=== PATIENT | female | born 1960 | race American Indian/Alaskan Native ===

== ENCOUNTER 2017-02-06 12:43 | Inpatient (IN) | payer OTHER ==
[2017-02-06 13:28] LABS: Basophils % (Auto) 0.1 % (0.0-1.8); Eosinophils % (Auto) 0.2 % (0.0-4.3); Hemoglobin 9.2 gm/dl (10.1-14.3); Mean Corpuscular HGB Conc 34 % (30-34); Mean Corpuscular Hemoglobin 27 pg (28-32); Mean Corpuscular Volume 81 fl (79-97); Platelet Count 267 K/mm3 (140-440); Red Blood Count 3.34 M/mm3 (3.65-5.03); Red Cell Distribution Width 16.7 % (13.2-15.2); White Blood Count 4.4 K/mm3 (4.5-11.0)
[2017-02-06 13:39] LABS: Anion Gap 18 mmol/L; Blood Urea Nitrogen 18 mg/dL (7-17); Calcium 9.1 mg/dL (8.4-10.2); Carbon Dioxide 24 mmol/L (22-30); Chloride 96.5 mmol/L (98-107); Glucose 84 mg/dL (65-100); Potassium 3.3 mmol/L (3.6-5.0); Sodium 135 mmol/L (137-145)
[2017-02-06] MEDS ORDERED: ZITHROMAX 500 MG in NACL 0.9% 250ML 250 ML IV ONE (21:29)
[2017-02-06] MEDS ORDERED: ROCEPHIN/NS 1 GM/50 ML 1 GM/50 ML BAG IV ONE (21:29)
[2017-02-06] MEDS ORDERED: K-DUR PO ONE (21:29)
[2017-02-06] MEDS ORDERED: DILAUDID IV ONE (21:43)
[2017-02-06] MEDS ORDERED: ZOFRAN IV ONE (21:43)
--- NOTE | 2017-02-06 21:49 | Emergency Department Report ---
ED Chest Pain HPI - General Chief Complaint: Chest Pain Stated Complaint: CHEST PAIN Time Seen by Provider: 02/06/17 21:23 Source: patient Mode of arrival: Ambulatory Limitations: No Limitations - History of Present Illness Initial Comments: Chief complaint: Right sided chest pain HPI: 56-year-old female history of lupus and asthma complaining or right sided sharp chest pain 1-2 weeks. Mode of arrival: [ private car] Source: [Patient] Began: 1-2 week Duration: Continuous Context: Denies trauma or injury. Positive cough Quality: Sharp Severity: 7 out of 10 Improved with: splinting Worsened with: movement, palpation, cough, inspiration Associated signs and symptoms: Cough occasional productive of yellow sputum. MAXIMUM TEMPERATURE of 100F. Denies calf tenderness or recent travel Plant Sprayer: Dr. Rodriguez PMD Stevie Peterson - Related Data Allergies Allergy/AdvReac Type Severity Reaction Status Date / Time aspirin AdvReac Nausea Verified 02/06/17 13:00 Heart Score - HEART Score History: Slightly suspicious EKG: Non-specific Age: 45-65 Risk factors: 1-2 risk factors Troponin: < normal limit HEART Score: 3 ED Review of Systems ROS: Stated complaint: CHEST PAIN Other details as noted in HPI Comment: All other systems reviewed and negative Other: Constitutional: As per HPI Eyes: No eye pain visual changes ENT: No ear pain or throat pain Neck: Denies pain Respiratory: As per HPI Cardiovascular: Denies palpitations, syncope GI: Denies abdominal pain, nausea, vomiting, diarrhea : Denies dysuria, Musculoskeletal: Denies back pain Skin: Denies rash, lesions, erythema Neurologic: Denies headache, numbness, weakness ED Past Medical Hx - Past Medical History Hx Asthma: Yes Additional medical history: lupus - Surgical History Hx Appendectomy: Yes Additional Surgical History: left leg shorter,surgery when young,partial hysterectomy - Social History Smoking Status: Current Every Day Smoker Substance Use Type: None ED Physical Exam - General Limitations: No Limitations - Other Other exam information: General: No limitations, patient is alert in no acute distress Head exam: Atraumatic, normocephalic Eyes exam: Normal appearance ENT: Moist mucous membrane, normal oropharynx Neck exam: Normal inspection, full range of motion, no meningismus nontender Respiratory exam: Splinting with deep inspiration. Mild decreased breath sounds right base. Tenderness to palpation of the right lower ribs. Cardiovascular: Normal rate and rhythm Abdomen: Soft, nondistended, and nontender, with normal bowel sounds, no rebound, or guarding Extremity: Full range of motion normal inspection no deformity, no calf tenderness or edema Back: Normal Inspection, full range of motion, no tenderness Neurologic: Alert, oriented x3, cranial nerves intact, no motor or sensory deficit Psychiatric: normal affect, normal mood Skin: Warm, dry, intact ED Course Vital Signs 02/06/17 12:55 Temperature 98 F Pulse Rate 102 H Respiratory 20 Rate Blood Pressure 120/76 O2 Sat by Pulse 97 Oximetry - Reevaluation(s) Reevaluation #1: 02/06/17 21:51 Dilaudid, Zofran, Rocephin, azithromycin, and by mouth potassium ordered - Consultations Consultation #1: 02/06/17 21:46 case d/w Dr Triny de la cruz, rec admission, will consult EDUARDO score - Eduardo Score Age > 65: (0) No Aspirin use within the Past 7 Days: (0) No 3 or more CAD Risk Factors: (0) No 2 or more Angina events in past 24 hrs: (0) No Known CAD with more than 50% Stenosis: (0) No Elevated Cardiac Markers: (0) No ST Deviation Greater than 0.5mm: (0) No EDUARDO Score: 0 ED Medical Decision Making - Lab Data Result diagrams: 02/06/17 13:03 02/06/17 13:03 Lab Results 02/06/17 02/06/17 02/06/17 Range/Units 13:03 13:03 15:30 WBC 4.4 L (4.5-11.0) K/mm3 RBC 3.34 L (3.65-5.03) M/mm3 Hgb 9.2 L (10.1-14.3) gm/dl Hct 27.0 L (30.3-42.9) % MCV 81 (79-97) fl MCH 27 L (28-32) pg MCHC 34 (30-34) % RDW 16.7 H (13.2-15.2) % Plt Count 267 (140-440) K/mm3 Lymph % (Auto) 21.2 (13.4-35.0) % [place] % (Auto) 9.0 H (0.0-7.3) % Eos % (Auto) 0.2 (0.0-4.3) % Baso % (Auto) 0.1 (0.0-1.8) % Lymph # 0.9 L (1.2-5.4) K/mm3 [place] # 0.4 (0.0-0.8) K/mm3 Eos # 0.0 (0.0-0.4) K/mm3 Baso # 0.0 (0.0-0.1) K/mm3 Seg Neutrophils % 69.5 (40.0-70.0) % Seg Neutrophils # 3.1 (1.8-7.7) K/mm3 Potassium 3.3 L (3.6-5.0) mmol/L Chloride 96.5 L (98-107) mmol/L Carbon Dioxide 24 (22-30) mmol/L Anion Gap 18 mmol/L BUN 18 H (7-17) mg/dL Creatinine 0.5 L (0.7-1.2) mg/dL Estimated GFR > 60 ml/min BUN/Creatinine Ratio 36.00 % Glucose 84 (65-100) mg/dL Calcium 9.1 (8.4-10.2) mg/dL Troponin T < 0.010 < 0.010 (0.00-0.029) ng/mL 02/06/17 Range/Units 18:54 WBC (4.5-11.0) K/mm3 RBC (3.65-5.03) M/mm3 Hgb (10.1-14.3) gm/dl Hct (30.3-42.9) % MCV (79-97) fl MCH (28-32) pg MCHC (30-34) % RDW (13.2-15.2) % Plt Count (140-440) K/mm3 Lymph % (Auto) (13.4-35.0) % [place] % (Auto) (0.0-7.3) % Eos % (Auto) (0.0-4.3) % Baso % (Auto) (0.0-1.8) % Lymph # (1.2-5.4) K/mm3 [place] # (0.0-0.8) K/mm3 Eos # (0.0-0.4) K/mm3 Baso # (0.0-0.1) K/mm3 Seg Neutrophils % (40.0-70.0) % Seg Neutrophils # (1.8-7.7) K/mm3 Potassium (3.6-5.0) mmol/L Chloride (98-107) mmol/L Carbon Dioxide (22-30) mmol/L Anion Gap mmol/L BUN (7-17) mg/dL Creatinine (0.7-1.2) mg/dL Estimated GFR ml/min BUN/Creatinine Ratio % Glucose (65-100) mg/dL Calcium (8.4-10.2) mg/dL Troponin T < 0.010 (0.00-0.029) ng/mL sodium: 135 - EKG Data -: EKG Interpreted by Me (nsr rate 99, lae, ant t inv) - EKG Data When compared to previous EKG there are: previous EKG unavailable - Medical Decision Making Chest x-ray reveals right pleural effusion which is new onset. Blood culture is pending. Antibiotics and pain medication ordered. Patient will be admitted for further treatment and pulmonology consultation. - Differential Diagnosis pleural effusion, pe, pneumonia, pleurisy, bronchitis Critical Care Time: No Critical care attestation.: If time is entered above; I have spent that time in minutes in the direct care of this critically ill patient, excluding procedure time. ED Disposition Clinical Impression: Pleural effusion, right, Lupus, Asthma, Hypokalemia Disposition: OP ADMIT IP TO THIS HOSP Is pt being admited?: Yes Condition: Stable Time of Disposition: 21:54 (Dr Bishop/hosp)
[2017-02-06] MEDS ORDERED: PERCOCET 5/325 PO PRN (23:04)
[2017-02-06] MEDS ORDERED: DULCOLAX PR PRN (23:04)
[2017-02-06] MEDS ORDERED: TYLENOL PO PRN (23:04)
[2017-02-06] MEDS ORDERED: ZOFRAN IV PRN (23:04)
[2017-02-06] MEDS ORDERED: MILK OF MAGNESIA PO PRN (23:04)
--- NOTE | 2017-02-06 23:06 | History and Physical Report ---
History of Present Illness Date of examination: 02/06/17 History of present illness: 56-year-old woman with a history of lupus, asthma comes emergency room with complaints of right side pain 1-2 weeks. She describes the pain as sharp, intermittent in nature, unable to say how long it lasts for, intensity 8/10, no radiation, worse with breathing and coughing Patient denies chest pain, palpitation, shortness of breath, cough, abdominal pain, hematochezia, dysuria, frequency, focal weakness, dysarthria, fever chills , polydipsia polyuria, hot or cold intolerance, easy bruisability, or rash or bleeding from mucosal membrane, rhinorrhea, epistaxis, earache, tinnitus, blurry vision, eye discharge, anxiety, depression. Other review of systems negative PAST SURGICAL HISTORY: Partial hysterectomy and surgery on left leg SOCIAL HISTORY: Denies alcohol, tobacco, drugs FAMILY HISTORY: Hypertension Medications and Allergies Allergies Allergy/AdvReac Type Severity Reaction Status Date / Time azithromycin Allergy Swelling Verified 02/07/17 02:21 aspirin AdvReac Nausea Verified 02/06/17 13:00 Home Medications Medication Instructions Recorded Confirmed Last Taken Type Potassium Chloride [K-Dur] 20 meq PO QDAY 02/06/17 02/06/17 02/06/17 History Prednisone [predniSONE (Lainey) ER 5 mg PO QDAY 02/06/17 02/06/17 02/06/17 History TAB] Exam - Physical Exam Narrative exam: Gen. appearance: Patient lying in bed, no apparent distress HEENT: Normocephalic, atraumatic, pupils equally round and reactive to light, extraocular movement intact, and no sclericterus,. No JVD or thyromegaly or nodule,neck supple, no carotid bruit ,mucous membranes moist, no exudate or erythema Heart: S1, S2, regular rate and rhythm Lungs: Decreased breath sound on the right side , breathing comfortable Abdomen: Positive bowel sounds, nontender, nondistended, no organomegaly Extremity: No edema, cyanosis, clubbing Skin: No rash, nodules, warm, dry Neuro: Oriented 3, cranial nerves II-12 intact, speech is fluent, motor and sensory intact - Constitutional Vitals: Temp Pulse Resp BP Pulse Ox 98 F 102 H 20 122/69 99 02/06/17 12:55 02/06/17 12:55 02/06/17 12:55 02/06/17 22:00 02/06/17 22:00 Results - Labs CBC & Chem 7: 02/07/17 05:09 02/07/17 05:09 Labs: Abnormal lab results 02/06/17 02/06/17 Range/Units 13:03 13:03 WBC 4.4 L (4.5-11.0) K/mm3 RBC 3.34 L (3.65-5.03) M/mm3 Hgb 9.2 L (10.1-14.3) gm/dl Hct 27.0 L (30.3-42.9) % MCH 27 L (28-32) pg RDW 16.7 H (13.2-15.2) % [place] % (Auto) 9.0 H (0.0-7.3) % Lymph # 0.9 L (1.2-5.4) K/mm3 Potassium 3.3 L (3.6-5.0) mmol/L Chloride 96.5 L (98-107) mmol/L BUN 18 H (7-17) mg/dL Creatinine 0.5 L (0.7-1.2) mg/dL - Imaging and Cardiology EKG: image reviewed Chest x-ray: image reviewed Assessment and Plan Right-sided pleuritic pain Right pleural effusion Lupus Asthma, stable Admit to medicine Check d-dimer, carrdiac enzymes,consult pulmonary Continue outpatient medication,start Percocet, DVT prophylaxis
[2017-02-07 00:07] LABS: Creatine Kinase MB < 1.0 ng/mL (0.0-4.0)
[2017-02-07 00:08] LABS: Creatine Kinase 18 units/L (30-135)
[2017-02-07] MEDS ORDERED: PEPCID IV ONE ×2 (00:58→01:07)
[2017-02-07] MEDS ORDERED: BENADRYL ONE (00:59)
[2017-02-07] MEDS ORDERED: BENADRYL IV ONE (01:07)
[2017-02-07 06:28] LABS: Basophils % (Auto) 0.1 % (0.0-1.8); Hematocrit 27.3 % (30.3-42.9); Hemoglobin 9.3 gm/dl (10.1-14.3); Mean Corpuscular HGB Conc 34 % (30-34); Mean Corpuscular Hemoglobin 27 pg (28-32); Mean Corpuscular Volume 80 fl (79-97); Platelet Count 254 K/mm3 (140-440); Red Blood Count 3.43 M/mm3 (3.65-5.03); Red Cell Distribution Width 17.3 % (13.2-15.2)
[2017-02-07 06:42] LABS: Anion Gap 17 mmol/L; BUN/Creatinine Ratio 56.66; Blood Urea Nitrogen 17 mg/dL (7-17); Carbon Dioxide 24 mmol/L (22-30); Chloride 97.6 mmol/L (98-107); Creatine Kinase MB < 1.0 ng/mL (0.0-4.0); Glucose 103 mg/dL (65-100); Potassium 4.5 mmol/L (3.6-5.0); Sodium 134 mmol/L (137-145)
[2017-02-07 06:44] LABS: Creatine Kinase 18 units/L (30-135)
--- NOTE | 2017-02-07 08:09 | XRay Report ---
CHEST TWO VIEWS: 02/06/17 12:43:00 CLINICAL: Shortness of breath and chest pain. COMPARISON: None FINDINGS: Right basal opacification with silhouetting of the diaphragm and opacification of the costophrenic angle.Pleural fluid appears to layer anteriorly on the lateral view. Right middle lobe and right lower lobe opacities on the lateral view. The left lung is clear. Normal heart and pulmonary vessels.The bones and soft tissues are unremarkable. IMPRESSION: Suspect right pleural effusion and right middle lobe and airspace disease.
[2017-02-07] MEDS: DELTASONE PO SCH (09:24)
[2017-02-07] MEDS: LOVENOX SUB-Q SCH (09:24)
[2017-02-07] MEDS ORDERED: NON-FORMULARY (Prednisone [Prednisone (Rayos) Er Tab] 5 MG) PO SCH (10:00)
--- NOTE | 2017-02-07 11:31 | Progress Note ---
Assessment and Plan Assessment and plan: --Right-sided pleuritic chest pain; Oxygen, pain medications, supportive care --Elevated d-dimer's in the setting of right pleuritic chest pain CT angiogram of the chest to rule out PE, symptomatic management --Right pleural effusion; supportive care Possible thoracentesis if indicated, pulmonary following --History of lupus; continue maintenance dose of steroids --History of asthma; stable well compensated Continue current management --DVT prophylaxis; Lovenox DC planning to case management Closely monitor the patient and adjust the management as needed follow pulmonary evaluation and recommendations Closely monitor the patient adjust the management as needed Possible discharge in 1-2 days if stable Plan of care discussed with the patient as well as the nurse History Interval history: Patient seen and evaluated in her room this morning medical records reviewed Admitted with right-sided chest pain, and has elevated d-dimer as Complaints of intermittent right-sided chest pain, no cough Alert awake oriented 3 not in acute distress vital signs reviewed Hospitalist Physical - Constitutional Vitals: Temp Pulse Resp BP Pulse Ox 98.3 F 85 16 100/58 98 02/07/17 09:47 02/07/17 09:47 02/07/17 09:47 02/07/17 09:47 02/07/17 09:47 General appearance: Present: no acute distress, well-nourished - EENT Eyes: Present: PERRL, EOM intact - Neck Neck: Present: supple, normal ROM - Respiratory Respiratory effort: normal Respiratory: bilateral: diminished, rhonchi, negative: rales, wheezing - Cardiovascular Rhythm: regular Heart Sounds: Present: S1 & S2 - Extremities Extremities: no ischemia, pulses intact, pulses symmetrical Peripheral Pulses: within normal limits - Abdominal General gastrointestinal: soft, non-tender, non-distended, normal bowel sounds - Integumentary Integumentary: Present: clear, warm - Psychiatric Psychiatric: appropriate mood/affect, cooperative - Neurologic Neurologic: CNII-XII intact, moves all extremities Results - Labs CBC & Chem 7: 02/07/17 05:09 02/07/17 05:09 Labs: Laboratory Last Values WBC 4.0 K/mm3 (4.5-11.0) L 02/07/17 05:09 RBC 3.43 M/mm3 (3.65-5.03) L 02/07/17 05:09 Hgb 9.3 gm/dl (10.1-14.3) L 02/07/17 05:09 Hct 27.3 % (30.3-42.9) L 02/07/17 05:09 MCV 80 fl (79-97) 02/07/17 05:09 MCH 27 pg (28-32) L 02/07/17 05:09 MCHC 34 % (30-34) 02/07/17 05:09 RDW 17.3 % (13.2-15.2) H 02/07/17 05:09 Plt Count 254 K/mm3 (140-440) 02/07/17 05:09 Lymph % (Auto) 7.7 % (13.4-35.0) L 02/07/17 05:09 [place] % (Auto) 2.7 % (0.0-7.3) 02/07/17 05:09 Eos % (Auto) 0.0 % (0.0-4.3) 02/07/17 05:09 Baso % (Auto) 0.1 % (0.0-1.8) 02/07/17 05:09 Lymph # 0.3 K/mm3 (1.2-5.4) L 02/07/17 05:09 [place] # 0.1 K/mm3 (0.0-0.8) 02/07/17 05:09 Eos # 0.0 K/mm3 (0.0-0.4) 02/07/17 05:09 Baso # 0.0 K/mm3 (0.0-0.1) 02/07/17 05:09 Seg Neutrophils % 89.5 % (40.0-70.0) H 02/07/17 05:09 Seg Neutrophils # 3.6 K/mm3 (1.8-7.7) 02/07/17 05:09 D-Dimer 2565.21 ng/mlDDU (0-234) H 02/06/17 23:25 Sodium 134 mmol/L (137-145) L 02/07/17 05:09 Potassium 4.5 mmol/L (3.6-5.0) D 02/07/17 05:09 Chloride 97.6 mmol/L (98-107) L 02/07/17 05:09 Carbon Dioxide 24 mmol/L (22-30) 02/07/17 05:09 Anion Gap 17 mmol/L 02/07/17 05:09 BUN 17 mg/dL (7-17) 02/07/17 05:09 Creatinine 0.3 mg/dL (0.7-1.2) L 02/07/17 05:09 Estimated GFR > 60 ml/min 02/07/17 05:09 BUN/Creatinine Ratio 56.66 % 02/07/17 05:09 Glucose 103 mg/dL (65-100) H 02/07/17 05:09 Calcium 9.0 mg/dL (8.4-10.2) 02/07/17 05:09 Total Creatine Kinase 18 units/L (30-135) L 02/07/17 05:09 CK-MB (CK-2) < 1.0 ng/mL (0.0-4.0) 02/07/17 05:09 CK-MB (CK-2) Rel Index 5.5 (0-4) H 02/07/17 05:09 Troponin T < 0.010 ng/mL (0.00-0.029) 02/07/17 05:09
[2017-02-07] MEDS ORDERED: PNEUMOVAX 23 IM ONE (12:00)
--- NOTE | 2017-02-07 12:05 | Admit Criteria Form ---
Admission Criteria Documentation: PLEURAL EFFUSION Clinical Indications for Admission to Inpatient Care (Place 'X' for any and all applicable criteria): Admission is indicated for ANY ONE of the following (1)(2)(3): [ ]I. Pneumonia-related effusion requiring drainage as indicated by ANY ONE of the following [A]: [ ]a) Large pleural effusion (symptomatic or greater than one-half of hemithorax) [ ]b) Loculated effusion [ ]c) Pleural thickening [ ]d) Pleural fluid analysis results, including ANY ONE of the following: [ ]i) Positive Gram stain or culture for bacteria [ ]ii) Pus [ ]iii) pH less than 7.20 [X]II. Inpatient admission required rather than observation care (Also use Pleural Effusion: Observation Care criteria as appropriate) because of ANY ONE of the following: [ ]a) Hemodynamic instability that is severe or persistent [ ]b) Respiratory distress that is severe or persistent [ ]c) Complication of drainage (e.g., pneumothorax) that requires inpatient care [ ]d) Etiology that requires inpatient care (e.g., pulmonary embolism , trauma) [ ]e) Severe pain requiring acute inpatient management [X ]f) Supplemental O2 or respiration drug for over 24 hrs that are performable only in an inpatient setting [ ]g) Chest tube placement with active evacuation (e.g., suction, drainage) [ ]h) Pulmonary artery catheter monitoring [ ]i) Epidural analgesia (8) [ ]j) Continuous IV infusion of anticoagulation, platelet inhibitor, vasoactive, or antiarrhythmic medication. [ ]k) Other condition, treatment or monitoring requiring inpatient admission [ ]l) Immediate inpatient surgery [ ]III. Hemothorax [ ]IV. Empyema [ ]V. Pleural effusion with concomitant pneumothorax [ ]. Recurrent or malignant pleural effusion requiring pleurodesis (4) Extended stay beyond goal length of stay may be needed for (27)(28): [ ]a) Empyema or complicated parapneumonic effusion (24)(29) [ ]b) Malignant pleural effusion (4) [ ]c) Pleural effusion due to trauma or perforated esophagus [ ]d) Pleural effusion due to pulmonary embolism (30) [ ]e) Clinically significant re-expansion pulmonary edema [ ]f) Hemothorax [ ]g) Renal failure [ ]h) Trapped lung (e.g., benign or malignant thickened pleura preventing lung re-expansion) (31) [ ]i) Underlying etiology necessitates ongoing inpatient care (e.g., pneumonia, heart failure, malignancy) [ ]j) Complications of thoracentesis, thoracostomy tube, or pleural cath. placement The original [facility] [employer] content created by [facility] has been revised. The portions of the content which have been revised are identified through the use of italic text or in bold, and [facility] has neither reviewed nor approved the modified material. All other unmodified content is copyright [facility]. Please see references footnoted in the original [facility] [employer] edition 2016 Admission Criteria Met: Yes
[2017-02-07] MEDS: LEVAQUIN 750MG/150ML 750 MG/150 ML BAG IV SCH (13:43)
[2017-02-07] MEDS ORDERED: NACL ONE (15:14)
--- NOTE | 2017-02-07 16:33 | Cat Scan Report ---
CTA chest: Elevated d-dimer; respiratory difficulty. Transverse images are obtained through the chest during IV contrast administration. Coronal and sagittal 2-D reformatted images as well as a 3-D image are included. As opacification of the pulmonary vessels, cardiac chambers, and thoracic aorta. No filling defect identified in the pulmonary vessels nor cardiac chambers. The thoracic aorta is normal in size and contour. No significant hilar, mediastinal, or axillary adenopathy. 2 calcified nodules noted in the right upper lobe consistent with granulomatous infection. No pulmonary nodules otherwise noted. There is bibasilar atelectasis slightly worse on the right. No significant effusion. Multiple circumscribed, small hypodensities are present throughout the liver measuring water attenuation. Impressions: 1. No pulmonary embolus. 2. Bibasilar atelectasis greater on right than left. Prior granulomatous infection of the right upper lobe. 3. Numerous liver cysts.
--- NOTE | 2017-02-08 08:04 | Progress Note ---
Assessment and Plan Assessment and plan: --Elevated d-dimer's in the setting of pleuritic chest pain CTA negative for PE, incidental findings noted --Right pleural effusion; supportive care Possible thoracentesis if indicated, pulmonary following --History of lupus; continue maintenance dose of steroids --History of asthma; stable well compensated Continue current management --DVT prophylaxis; Lovenox DC planning to case management Closely monitor the patient and adjust the management as needed Ambulate as tolerated Possible discharge home with home health to more if stable History Interval history: Patient seen and evaluated this morning in her room medical records reviewed Patient feels slightly better, denies any chest pain or shortness of breath CT angiogram negative for PE Alert awake oriented 3 not in acute distress, vital signs stable Hospitalist Physical - Constitutional Vitals: Temp Pulse Resp BP Pulse Ox 98.4 F 78 20 136/71 98 02/08/17 04:15 02/08/17 04:15 02/08/17 04:15 02/08/17 04:15 02/08/17 04:15 General appearance: Present: no acute distress, well-nourished - EENT Eyes: Present: PERRL, EOM intact - Neck Neck: Present: supple, normal ROM - Respiratory Respiratory effort: normal Respiratory: bilateral: diminished, negative: rales, rhonchi, wheezing - Cardiovascular Rhythm: regular Heart Sounds: Present: S1 & S2 - Extremities Extremities: no ischemia, pulses intact, pulses symmetrical Peripheral Pulses: within normal limits - Abdominal General gastrointestinal: soft, non-tender, non-distended, normal bowel sounds - Integumentary Integumentary: Present: clear, warm - Psychiatric Psychiatric: appropriate mood/affect, cooperative - Neurologic Neurologic: CNII-XII intact, moves all extremities Results - Labs CBC & Chem 7: 02/07/17 05:09 02/07/17 05:09 Labs: Laboratory Last Values WBC 4.0 K/mm3 (4.5-11.0) L 02/07/17 05:09 RBC 3.43 M/mm3 (3.65-5.03) L 02/07/17 05:09 Hgb 9.3 gm/dl (10.1-14.3) L 02/07/17 05:09 Hct 27.3 % (30.3-42.9) L 02/07/17 05:09 MCV 80 fl (79-97) 02/07/17 05:09 MCH 27 pg (28-32) L 02/07/17 05:09 MCHC 34 % (30-34) 02/07/17 05:09 RDW 17.3 % (13.2-15.2) H 02/07/17 05:09 Plt Count 254 K/mm3 (140-440) 02/07/17 05:09 Lymph % (Auto) 7.7 % (13.4-35.0) L 02/07/17 05:09 [place] % (Auto) 2.7 % (0.0-7.3) 02/07/17 05:09 Eos % (Auto) 0.0 % (0.0-4.3) 02/07/17 05:09 Baso % (Auto) 0.1 % (0.0-1.8) 02/07/17 05:09 Lymph # 0.3 K/mm3 (1.2-5.4) L 02/07/17 05:09 [place] # 0.1 K/mm3 (0.0-0.8) 02/07/17 05:09 Eos # 0.0 K/mm3 (0.0-0.4) 02/07/17 05:09 Baso # 0.0 K/mm3 (0.0-0.1) 02/07/17 05:09 Seg Neutrophils % 89.5 % (40.0-70.0) H 02/07/17 05:09 Seg Neutrophils # 3.6 K/mm3 (1.8-7.7) 02/07/17 05:09 D-Dimer 2565.21 ng/mlDDU (0-234) H 02/06/17 23:25 Sodium 134 mmol/L (137-145) L 02/07/17 05:09 Potassium 4.5 mmol/L (3.6-5.0) D 02/07/17 05:09 Chloride 97.6 mmol/L (98-107) L 02/07/17 05:09 Carbon Dioxide 24 mmol/L (22-30) 02/07/17 05:09 Anion Gap 17 mmol/L 02/07/17 05:09 BUN 17 mg/dL (7-17) 02/07/17 05:09 Creatinine 0.3 mg/dL (0.7-1.2) L 02/07/17 05:09 Estimated GFR > 60 ml/min 02/07/17 05:09 BUN/Creatinine Ratio 56.66 % 02/07/17 05:09 Glucose 103 mg/dL (65-100) H 02/07/17 05:09 Calcium 9.0 mg/dL (8.4-10.2) 02/07/17 05:09 Total Creatine Kinase 18 units/L (30-135) L 02/07/17 05:09 CK-MB (CK-2) < 1.0 ng/mL (0.0-4.0) 02/07/17 05:09 CK-MB (CK-2) Rel Index 5.5 (0-4) H 02/07/17 05:09 Troponin T < 0.010 ng/mL (0.00-0.029) 02/07/17 05:09
[2017-02-08] MEDS: LOVENOX SUB-Q SCH (11:19)
[2017-02-08] MEDS: DELTASONE PO SCH (11:19)
[2017-02-08] MEDS: LEVAQUIN 750MG/150ML 750 MG/150 ML BAG IV SCH (11:19)
[2017-02-08] MEDS ORDERED: ALUM-MAG HYDROX-SIMETH 200-200-20MG/5ML PO PRN ×2 (14:38→16:57)
--- NOTE | 2017-02-08 15:32 | Consultation ---
History of Present Illness Consult date: 02/08/17 Reason for consult: chest pain, pleural effusion History of present illness: Patient is a 56-year-old -[place] female with prior medical history of SLE, meter with a history of right-sided pleuritic pain for the past 1-2 weeks. The patient reports that she started with chest discomfort for sometimes associated with breathing, at that time. Some slight nonproductive cough noted. No leg discomfort or calf pain She denies any hemoptysis. She reports some low-grade temperature changes and does report some contact with sick colleagues on her work shift. Of note also, her SLE recently had being more active and her prednisone dose was increased and was also started on Plaquenil. No additional chest complaints reported. Past History Past Medical History: other (SLE SLE) Past Surgical History: No surgical history Social history: denies: smoking, alcohol abuse Medications and Allergies Allergies Allergy/AdvReac Type Severity Reaction Status Date / Time azithromycin Allergy Swelling Verified 02/07/17 02:21 aspirin AdvReac Nausea Verified 02/06/17 13:00 Home Medications Medication Instructions Recorded Confirmed Last Taken Type Potassium Chloride [K-Dur] 20 meq PO QDAY 02/06/17 02/06/17 02/06/17 History Prednisone [predniSONE (Lainey) ER 5 mg PO QDAY 02/06/17 02/06/17 02/06/17 History TAB] Active Meds: Active Medications Acetaminophen (Tylenol) 650 mg PO Q4H PRN PRN Reason: Pain MILD(1-3)/Fever >100.5/LEIVA Al Hydrox/Mg Hydrox/Simethicone (Alum-Mag Hydrox-Simeth [id number]/5ml) 30 ml PO Q4H PRN PRN Reason: Indigestion Bisacodyl (Dulcolax) 10 mg AK QDAY PRN PRN Reason: Constipation unrelieved by MOM Enoxaparin Sodium (Lovenox) 40 mg SUB-Q QDAY NITESH Last Admin: 02/08/17 11:19 Dose: 40 mg Levofloxacin (Levaquin) 750 mg PO Q24HR NITESH Magnesium Hydroxide (Milk Of Magnesia) 30 ml PO Q4H PRN PRN Reason: Constipation Ondansetron HCl (Zofran) 4 mg IV Q8H PRN PRN Reason: N/V unrelieved by Reglan Oxycodone/Acetaminophen (Percocet 5/325) 1 tab PO Q6H PRN PRN Reason: Pain, Moderate (4-6) Prednisone (Deltasone) 5 mg PO QDAY NITESH Last Admin: 02/08/17 11:19 Dose: 5 mg Review of Systems Constitutional: fever, fatigue, weakness, malaise Cardiovascular: chest pain, no orthopnea, no palpitations, no rapid/irregular heart beat, no edema, no syncope, no lightheadedness, no shortness of breath, no dyspnea on exertion Respiratory: cough, shortness of breath, dyspnea on exertion, no cough with sputum, no excessive sputum, no hemoptysis Gastrointestinal: no abdominal pain, no nausea, no BRBPR, no melena Musculoskeletal: morning stiffness Integumentary: no rash Neurological: no head injury, no transient paralysis, no paralysis, no tingling , no seizures, no syncope Psychiatric: no anxiety Endocrine: no cold intolerance, no heat intolerance, no polyphagia, no excessive thirst Hematologic/Lymphatic: no easy bruising, no easy bleeding, no lymphadenopathy, no lymphedema Physical Examination Vital signs: Vital Signs Temp Pulse Resp BP Pulse Ox 98 F 102 H 20 120/76 97 02/06/17 12:55 02/06/17 12:55 02/06/17 12:55 02/06/17 12:55 02/06/17 12:55 General appearance: no acute distress, alert Eyes: non-icteric ENT: oropharynx moist Neck: supple, no lymphadenopathy, no JVD Effort: normal Ascultation: Bilateral: clear, diminished breath sounds, rales (very faint on the right base) Percussion: Bilateral: not dull Cardiovascular: regular rate and rhythm Gastrointestinal: normoactive bowel sounds, non-distended Integumentary: normal Extremities: no cyanosis, no edema, no ischemia or petechiae, other (Homans negative bilaterally) Musculoskeletal: no deformities normal mental status, non-focal exam mood appropriate, affect normal Results - Laboratory Findings CBC and BMP: 02/07/17 05:09 02/07/17 05:09 PT/INR, D-dimer D-Dimer 2565.21 ng/mlDDU (0-234) H 02/06/17 23:25 Abnormal lab findings: Abnormal Labs 02/06/17 02/06/17 02/07/17 23:25 23:25 05:09 WBC 4.0 L RBC 3.43 L Hgb 9.3 L Hct 27.3 L MCH 27 L RDW 17.3 H Lymph % (Auto) 7.7 L Lymph # 0.3 L Seg Neutrophils % 89.5 H D-Dimer 2565.21 H Sodium Chloride Creatinine Glucose Total Creatine Kinase 18 L CK-MB (CK-2) Rel Index 5.5 H 02/07/17 02/07/17 05:09 05:09 WBC RBC Hgb Hct MCH RDW Lymph % (Auto) Lymph # Seg Neutrophils % D-Dimer Sodium 134 L Chloride 97.6 L Creatinine 0.3 L Glucose 103 H Total Creatine Kinase 18 L CK-MB (CK-2) Rel Index 5.5 H - Diagnostic Findings CT scan - chest: report reviewed, image reviewed Assessment and Plan -Chest pain. Per radiology report, no evidence of pleural effusion. No evidence of pulmonary embolism. Reason for her symptoms is unclear however, on my CT films review, I see some degree of pleural thickening versus minimal effusion on the right side. Considerations: Pleurodynia or most likely SLE related pleurisy symptoms. This will also explain incidental elevated d-dimer titers -Pulmonary granulomas. Incidental finding on CT scan. - SLE Recommendations: Sedimentation rate DUC Coxsackie B virus titers continue with prednisone and [id number] analgesic, in view of patient having aspirin allergy Incentive spirometry Out of bed and ambulate as tolerated
[2017-02-08] MEDS ORDERED: ALUM-MAG HYDROX-SIMETH 200-200-20MG/5ML ONE (17:00)
[2017-02-09 06:35] LABS: Basophils % (Auto) 0.2 % (0.0-1.8); Eosinophils % (Auto) 0.4 % (0.0-4.3); Hemoglobin 9.2 gm/dl (10.1-14.3); Mean Corpuscular HGB Conc 34 % (30-34); Mean Corpuscular Hemoglobin 27 pg (28-32); Mean Corpuscular Volume 79 fl (79-97); Platelet Count 276 K/mm3 (140-440); White Blood Count 3.3 K/mm3 (4.5-11.0)
[2017-02-09 06:42] LABS: Anion Gap 13 mmol/L; Blood Urea Nitrogen 18 mg/dL (7-17); Carbon Dioxide 27 mmol/L (22-30); Chloride 100.6 mmol/L (98-107); Glucose 82 mg/dL (65-100); Potassium 3.5 mmol/L (3.6-5.0); Sodium 137 mmol/L (137-145)
--- NOTE | 2017-02-09 08:01 | Discharge Summary ---
Providers - Providers Date of Admission: 02/06/17 23:04 Date of discharge: 02/09/17 Attending physician: MOUSTAPHA CHAMBERLAIN Primary care physician: SNAGGER Hospitalization Condition: Stable Disposition: DC-01 TO HOME OR SELFCARE Time spent for discharge: 32 min Exam - Constitutional Vitals: Temp Pulse Resp BP Pulse Ox 98.4 F 80 20 134/68 100 02/09/17 04:00 02/09/17 04:00 02/09/17 04:00 02/09/17 04:00 02/09/17 04:00 Plan Activity: no restrictions Diet: regular Additional Instructions: f/u PMD 3-4 days. f/u [employer] 1-2 weeks. advised 2 days rest,check with PMD for further instructions Follow up with: PRIMARY CARE, [Primary Care Provider] - 7 Days Prescriptions: Levofloxacin [Levaquin TAB] 750 mg PO Q24HR #5 tablet oxyCODONE /ACETAMINOPHEN [Percocet 5/325 mg] 1 tab PO Q12H PRN #10 tablet PRN Reason: Pain, Moderate (4-6)
[2017-02-09] MEDS ORDERED: K-DUR PO NR (08:30)
[2017-02-09 09:30] VITALS: BP 106/50
[2017-02-09] MEDS ORDERED: LEVAQUIN PO SCH (10:00)
[2017-02-09] MEDS: LOVENOX SUB-Q SCH (10:33)
[2017-02-09] MEDS: DELTASONE PO SCH (10:33)
== END 2017-02-09 14:15 | disposition home or self-care (01) | DRG 547 ==
LOC: ED 12:43 → 4A 23:04 → UNDODISIN 02-09 13:17
PROVIDERS: ADMIT Internal Medicine; ATTEND Internal Medicine
PROC: 3E0234Z Introduction of Serum, Toxoid and Vaccine into Muscle, Percutaneous Approach (ICD-10-PCS; principal; 2017-02-07)
DX: M32.9 Systemic lupus erythematosus, unspecified (principal); R07.81 Pleurodynia; F17.200 Nicotine dependence, unspecified, uncomplicated; E87.6 Hypokalemia; J84.10 Pulmonary fibrosis, unspecified; Z88.8 Allergy status to other drugs, medicaments and biological substances; Z82.49 Family history of ischemic heart disease and other diseases of the circulatory system; Z90.711 Acquired absence of uterus with remaining cervical stump; Z88.6 Allergy status to analgesic agent; Z90.710 Acquired absence of both cervix and uterus; Z23 Encounter for immunization
CPT/HCPCS: 36415; 71020; 71275; 80048; 82550; 82553; 84484; 85025; 85379; 87040; 90732; 93005; 93010; 96374; 96375; J0456; J0696; J1170; J1200; J1650; J1956; J2405; J2930; J7050; J7512; Q9967

== ENCOUNTER 2019-07-08 18:59 | Inpatient (IN) | payer OTHER ==
[2019-07-08] MEDS ORDERED: SODIUM CHLORIDE 0.9% 1000 ML IV SOLN IV ONE (19:39)
--- NOTE | 2019-07-08 19:39 | Event Note ---
ED Screening Note ED Screening Note: generalized weakness for 3-4 days fatigue bed sores confusion lives at home with sister went to ER previously, diagnosed with UTI +diarrhea no cough no n/v PMHx asthma, RA, lupus, anemia This initial assessment/diagnostic orders/clinical plan/treatment(s) is/are subject to change based on patients health status, clinical progression and re- assessment by fellow clinical providers in the ED. Further treatment and workup at subsequent clinical providers discretion. Patient/guardian urged not to elope from the ED as their condition may be serious if not clinically assessed and managed. Initial orders include: suspected sepsis protocol
--- NOTE | 2019-07-08 20:47 | Cat Scan Report ---
CT head/brain wo con INDICATION: Altered mental status. TECHNIQUE: Routine CT head without contrast. All CT scans at this location are performed using CT dos e reduction for ALARA by means of automated exposure control. COMPARISON: None. FINDINGS: BRAIN / INTRACRANIAL CONTENTS: No acute hemorrhage, mass effect, midline shift, or hydrocephalus. No appreciable acute large territorial or lacunar infarct. No large chronic infarct or focal atrophy. No rmal brain volume and ventricular/sulcal size for age. There are a couple of subcortical white matter hypodensities in the posterior right frontal lobe on series 2 images 19 and 20. ORBITS: No significant abnormality of visualized orbits. SINUSES / MASTOIDS: No significant abnormality of visualized sinuses and mastoid air cells. Pneumatiz ation of the petrous apices is noted. ADDITIONAL FINDINGS: None. IMPRESSION: 1. Small white matter hypodensities in the posterior right frontal lobe likely represent areas of chr onic microangiopathic change and/or old small lacunar regions but remain age indeterminate in the abs ence of comparison imaging. If acute stroke is a strong clinical suspicion, further evaluation with M RI of the brain without contrast may be obtained. Signer Name: Bartolome Gupta MD Signed: 07/08/2019 8:42 PM Workstation Name: [id number]
[2019-07-08 21:02] LABS: Bilirubin,Urine NEG (Negative); Blood,Urine LG (Negative); Color,Urine Yellow (Yellow); Urobilinogen,Urine < 2.0 mg/dL (<2.0)
[2019-07-08 21:04] LABS: RBC,Urine > 182.0 /HPF (0.0-6.0); WBC,Urine > 182.0 /HPF (0.0-6.0)
[2019-07-08 21:45] LABS: Albumin 2.5 g/dL (3.9-5); Calcium 9.9 mg/dL (8.4-10.2)
[2019-07-08] MEDS ORDERED: SODIUM CHLORIDE 0.9% 1000 ML 1,000 ML IV ONE ×2 (22:05→23:55)
[2019-07-08 22:06] LABS: Basophils % (Auto) 0.1 % (0.0-1.8); Eosinophils % (Auto) 0.2 % (0.0-4.3); Hematocrit 21.4 % (30.3-42.9); Hemoglobin 7.2 gm/dl (10.1-14.3); Lymphocytes # (Auto) 0.6 K/mm3 (1.2-5.4); Lymphocytes % (Auto) 5.4 % (13.4-35.0); Mean Corpuscular HGB Conc 34 % (30-34); Mean Corpuscular Volume 89 fl (79-97); Red Blood Count 2.41 M/mm3 (3.65-5.03); Red Cell Distribution Width 15.2 % (13.2-15.2)
[2019-07-08] MEDS ORDERED: cefTRIAXone/NS 2 GM/100 ML 2 GM/100 ML BAG IV ONE (22:06)
--- NOTE | 2019-07-08 22:57 | Emergency Department Report ---
ED General Adult HPI - General Chief complaint: Weakness Stated complaint: NOT EATING/BED SORES/FATIGUE Time Seen by Provider: 07/08/19 19:35 Source: family Mode of arrival: Wheelchair Limitations: Physical Limitation - History of Present Illness Initial comments: Patient is a 59-year-old female with history of lupus rheumatoid arthritis and chronic anemia who is presenting with progressively worsening weakness. Patient's family state that she's been living with her sister for the last month because she was unable to care for herself. Approximate 2 months ago she became noticeably more tired after working and is now having difficulty evening moving around or taking care of herself. Patient was taken to an outside emergency department roughly 2 weeks ago or so she had a UTI and was started on Levaquin. The patient has some blood in her urine as well. Patient's family states she took oral antibiotics was not improving improving. Patient states that her primary care physician Stated That She Did Not Have a Urinary Tract Infection. Patient at This Point According to Family He Is Not Eating or Drinking and Cannot Stand on Her Own. I Was Complaining of Some Mild Diarrhea As Well. - Related Data Home Medications Medication Instructions Recorded Confirmed Last Taken Potassium Chloride [K-Dur] 20 meq PO QDAY 02/06/17 02/06/17 02/06/17 Prednisone [predniSONE (Lainey) ER 5 mg PO QDAY 02/06/17 02/06/17 02/06/17 TAB] Previous Rx's Medication Instructions Recorded Last Taken Type levoFLOXacin [Levaquin TAB] 750 mg PO Q24HR #5 tablet 02/09/17 Unknown Rx oxyCODONE /ACETAMINOPHEN [Percocet 1 tab PO Q12H PRN #10 tablet 02/09/17 Unknown Rx 5/325 mg] Allergies Allergy/AdvReac Type Severity Reaction Status Date / Time azithromycin Allergy Swelling Verified 02/07/17 02:21 aspirin AdvReac Nausea Verified 02/06/17 13:00 ED Review of Systems ROS: Stated complaint: NOT EATING/BED SORES/FATIGUE Other details as noted in HPI Comment: All other systems reviewed and negative ED Past Medical Hx - Past Medical History Previous Medical History?: Yes Hx Arthritis: Yes (RA) Hx Asthma: Yes Hx COPD: No Additional medical history: lupus, Anemia, Sacral Decubitus - Surgical History Past Surgical History?: Yes Hx Appendectomy: Yes Additional Surgical History: left leg shorter,surgery when young,partial hysterectomy - Social History Smoking Status: Unknown if ever smoked Substance Use Type: None - Medications Home Medications: Home Medications Medication Instructions Recorded Confirmed Last Taken Type Potassium Chloride [K-Dur] 20 meq PO QDAY 02/06/17 02/06/17 02/06/17 History Prednisone [predniSONE (Lainey) ER 5 mg PO QDAY 02/06/17 02/06/17 02/06/17 History TAB] levoFLOXacin [Levaquin TAB] 750 mg PO Q24HR #5 tablet 02/09/17 Unknown Rx oxyCODONE /ACETAMINOPHEN [Percocet 1 tab PO Q12H PRN #10 tablet 02/09/17 Unknown Rx 5/325 mg] ED Physical Exam - General Limitations: Physical Limitation General appearance: alert, lethargic, cachectic, other (very pale) - Head Head exam: Present: atraumatic, normocephalic - Eye Eye exam: Present: normal appearance. Absent: PERRL, EOMI - ENT ENT exam: Present: mucous membranes dry, other (thrush present) - Neck Neck exam: Present: normal inspection - Respiratory Respiratory exam: Present: normal lung sounds bilaterally. Absent: respiratory distress, wheezes, rales, rhonchi - Cardiovascular Cardiovascular Exam: Present: normal rhythm, tachycardia, normal heart sounds. Absent: systolic murmur, diastolic murmur, rubs, gallop - GI/Abdominal GI/Abdominal exam: Present: soft, normal bowel sounds. Absent: distended, tenderness, guarding, rebound - Rectal Rectal exam: Present: heme (+) stool - Extremities Exam Extremities exam: Present: normal inspection, other (extremity waisting) - Back Exam Back exam: Present: normal inspection - Neurological Exam Neurological exam: Present: alert, oriented X3 - Psychiatric Psychiatric exam: Present: normal affect, normal mood - Skin Skin exam: Present: warm, dry, intact, normal color, other (stage 2 sacral ulcer). Absent: rash ED Course Vital Signs 07/08/19 07/08/19 07/08/19 19:36 20:04 20:15 Temperature 97.5 F L Pulse Rate 108 H 105 H Respiratory 18 18 Rate Blood Pressure 81/47 98/54 98/54 O2 Sat by Pulse 100 100 Oximetry 07/08/19 07/08/19 07/08/19 20:30 20:45 21:01 Temperature Pulse Rate 100 H 92 H 96 H Respiratory 23 14 16 Rate Blood Pressure 96/61 86/51 86/51 O2 Sat by Pulse 100 100 100 Oximetry 07/08/19 07/08/19 07/08/19 21:15 21:30 21:45 Temperature Pulse Rate 91 H 94 H 94 H Respiratory 17 12 11 L Rate Blood Pressure 95/56 79/49 83/45 O2 Sat by Pulse 100 100 100 Oximetry 07/08/19 07/08/19 07/08/19 22:17 22:30 22:45 Temperature Pulse Rate 97 H 98 H 97 H Respiratory 32 H 16 19 Rate Blood Pressure 93/40 74/46 94/51 O2 Sat by Pulse 100 100 98 Oximetry 07/08/19 23:00 Temperature Pulse Rate 93 H Respiratory 20 Rate Blood Pressure 91/47 O2 Sat by Pulse 100 Oximetry - Reevaluation(s) Reevaluation #1: 07/08/19 22:57 Patient currently has no power of insurance attorney. I did speak with her sister at this time at length about whether the patient wished to have advanced measures used in case her heart were to stop she went to respiratory distress. Patient's sister states they plan on having a family meeting concerning this tomorrow. ED Medical Decision Making - Lab Data Result diagrams: 07/08/19 21:00 07/08/19 21:00 Lab Results 07/08/19 07/08/19 07/08/19 Range/Units 20:42 21:00 21:00 WBC 10.5 (4.5-11.0) K/mm3 RBC 2.41 L (3.65-5.03) M/mm3 Hgb 7.2 L (10.1-14.3) gm/dl Hct 21.4 L (30.3-42.9) % MCV 89 (79-97) fl MCH 30 (28-32) pg MCHC 34 (30-34) % RDW 15.2 (13.2-15.2) % Lymph % (Auto) 5.4 L (13.4-35.0) % [place] % (Auto) 10.0 H (0.0-7.3) % Eos % (Auto) 0.2 (0.0-4.3) % Baso % (Auto) 0.1 (0.0-1.8) % Lymph # 0.6 L (1.2-5.4) K/mm3 [place] # 1.0 H (0.0-0.8) K/mm3 Eos # 0.0 (0.0-0.4) K/mm3 Baso # 0.0 (0.0-0.1) K/mm3 Seg Neutrophils % 84.3 H (40.0-70.0) % Seg Neutrophils # 8.8 H (1.8-7.7) K/mm3 Sodium 134 L (137-145) mmol/L Potassium 5.6 H (3.6-5.0) mmol/L Chloride 101.0 (98-107) mmol/L Carbon Dioxide 19 L (22-30) mmol/L Anion Gap 20 mmol/L BUN 123 H (7-17) mg/dL Creatinine 1.9 H (0.7-1.2) mg/dL Estimated GFR 33 ml/min BUN/Creatinine Ratio 65 % Glucose 135 H (65-100) mg/dL Lactic Acid (0.7-2.0) mmol/L Calcium 9.9 (8.4-10.2) mg/dL Phosphorus (2.5-4.5) mg/dL Magnesium (1.7-2.3) mg/dL Total Bilirubin 0.30 (0.1-1.2) mg/dL AST 18 (5-40) units/L ALT 10 (7-56) units/L Alkaline Phosphatase 36 (35-129) units/L Total Creatine Kinase (30-135) units/L Total Protein 6.9 (6.3-8.2) g/dL Albumin 2.5 L (3.9-5) g/dL Albumin/Globulin Ratio 0.6 % Urine Color Yellow (Yellow) Urine Turbidity Cloudy (Clear) Urine pH 6.0 (5.0-7.0) Ur Specific [place] 1.013 (1.003-1.030) Urine Protein 30 mg/dl (Negative) mg/dL Urine Glucose (UA) 50 (Negative) mg/dL Urine Ketones Neg (Negative) mg/dL Urine Blood Lg (Negative) Urine Nitrite Neg (Negative) Urine Bilirubin Neg (Negative) Urine Urobilinogen < 2.0 (<2.0) mg/dL Ur Leukocyte Esterase Lg (Negative) Urine WBC (Auto) > 182.0 H (0.0-6.0) /HPF Urine RBC (Auto) > 182.0 (0.0-6.0) /HPF U Epithel Cells (Auto) 3.0 (0-13.0) /HPF Urine WBC Clumps 3+ /HPF 07/08/19 07/08/19 Range/Units 21:00 21:00 WBC (4.5-11.0) K/mm3 RBC (3.65-5.03) M/mm3 Hgb (10.1-14.3) gm/dl Hct (30.3-42.9) % MCV (79-97) fl MCH (28-32) pg MCHC (30-34) % RDW (13.2-15.2) % Lymph % (Auto) (13.4-35.0) % [place] % (Auto) (0.0-7.3) % Eos % (Auto) (0.0-4.3) % Baso % (Auto) (0.0-1.8) % Lymph # (1.2-5.4) K/mm3 [place] # (0.0-0.8) K/mm3 Eos # (0.0-0.4) K/mm3 Baso # (0.0-0.1) K/mm3 Seg Neutrophils % (40.0-70.0) % Seg Neutrophils # (1.8-7.7) K/mm3 Sodium (137-145) mmol/L Potassium (3.6-5.0) mmol/L Chloride (98-107) mmol/L Carbon Dioxide (22-30) mmol/L Anion Gap mmol/L BUN (7-17) mg/dL Creatinine (0.7-1.2) mg/dL Estimated GFR ml/min BUN/Creatinine Ratio % Glucose (65-100) mg/dL Lactic Acid 3.20 H* (0.7-2.0) mmol/L Calcium (8.4-10.2) mg/dL Phosphorus 2.40 L (2.5-4.5) mg/dL Magnesium 2.50 H (1.7-2.3) mg/dL Total Bilirubin (0.1-1.2) mg/dL AST (5-40) units/L ALT (7-56) units/L Alkaline Phosphatase (35-129) units/L Total Creatine Kinase 59 (30-135) units/L Total Protein (6.3-8.2) g/dL Albumin (3.9-5) g/dL Albumin/Globulin Ratio % Urine Color (Yellow) Urine Turbidity (Clear) Urine pH (5.0-7.0) Ur Specific [place] (1.003-1.030) Urine Protein (Negative) mg/dL Urine Glucose (UA) (Negative) mg/dL Urine Ketones (Negative) mg/dL Urine Blood (Negative) Urine Nitrite (Negative) Urine Bilirubin (Negative) Urine Urobilinogen (<2.0) mg/dL Ur Leukocyte Esterase (Negative) Urine WBC (Auto) (0.0-6.0) /HPF Urine RBC (Auto) (0.0-6.0) /HPF U Epithel Cells (Auto) (0-13.0) /HPF Urine WBC Clumps /HPF - Radiology Data CT head/brain wo con INDICATION: Altered mental status. TECHNIQUE: Routine CT head without contrast. All CT scans at this location are performed using CT dose reduction for ALARA by means of automated exposure control. COMPARISON: None. FINDINGS: BRAIN / INTRACRANIAL CONTENTS: No acute hemorrhage, mass effect, midline shift, or hydrocephalus. No appreciable acute large territorial or lacunar infarct. No large chronic infarct or focal atrophy. Normal brain volume and ventricular/sulcal size for age. There are a couple of subcortical white matter hypodensities in the posterior right frontal lobe on series 2 images 19 a nd 20. ORBITS: No significant abnormality of visualized orbits. SINUSES / MASTOIDS: No significant abnormality of visualized sinuses and mastoid air cells. Pneumatization of the petrous apices is noted. ADDITIONAL FINDINGS: None. IMPRESSION: 1. Small white matter hypodensities in the posterior right frontal lobe likely represent areas of chronic microangiopathic change and/or old small lacunar regions but remain age indeterminate in the absence of comparison imaging. If acute stroke is a strong clinical suspicion, further evaluation with MRI of the brain without contrast may be obtained. Signer Name: Bartolome Gupta MD Signed: 07/08/2019 8:42 PM Workstation Name: [id number] CT ABDOMEN AND PELVIS WITHOUT CONTRAST INDICATION: Generalized weakness and hematuria. TECHNICAL: Multiple axial CT images of the abdomen and pelvis were acquired without intravenous contrast. Sagittal and coronal reformats were obtained. All CTs at this facility utilize dose reduction techniques including automated exposure control, iterative reconstruction and weight based dosing when appropriate to reduce patient radiation dose to as low as reasonable achievable. COMPARISON: No previous studies are available for comparison. FINDINGS: Limited imaging of the bilateral lung bases demonstrates no evidence of acute abnormality. Abdomen: Evaluation of the abdomen is limited secondary to the lack of intravenous contrast and paucity of abdominal fat. There are innumerable low density lesions throughout the liver. The spleen and pancreas show no evidence of acute abnormality. There is moderate hydronephrosis of both kidneys without definitive perinephric stranding. There are several punctate nonobstructing intrarenal stones noted bilaterally. Pelvis: The urinary bladder is markedly distended and extends into the abdomen. No significant amount of free pelvic fluid is seen. Bones and Soft Tissues: Evaluation of bony structures demonstrates no evidence of destructive bony lesion. There are multilevel degenerative changes throughout the thoracolumbar spine. Evaluation of soft tissue structures demonstrates soft tissue irregularity along both gluteal regions, left greater than right concerning for decubitus ulcer. IMPRESSION: 1. Marked distention of the urinary bladder representing bladder outlet obstruction. 2. Moderate bilateral hydronephrosis. The hydronephrosis may be secondary to the bladder outlet obstruction. 3. Multiple nonobstructing intrarenal stones. 4. Soft tissue irregularity of both gluteal regions concerning for decubitus ulcer. Signer Name: Shasha Gonzalez MD Signed: 07/08/2019 11:37 PM Workstation Name: [id number] - Medical Decision Making 59 Greg female who over the last 4 weeks since had a rapid decline in her ability to take care of herself. Patient this point has V [place] in order to move her. She cannot stand on her own and is not eating and drinking in the last several days to week. Patient recently was treated for UTI family states that she has not improved. Per my exam the patient is emaciated and cachectic. Patient's is very thin and frail. She does have a distended abdomen. CT shows no masses however she does have a extremely distended bladder. It appears to have some obstructive process going on. Patient was started on antibiotics for urinary tract infection. Patient was given IV hydration aggressively to help with her renal function. Admitted to the hospitalist service. Critical Care Time: Yes (30) Critical care attestation.: If time is entered above; I have spent that time in minutes in the direct care o f this critically ill patient, excluding procedure time. ED Disposition Clinical Impression: Urinary outflow obstruction, Hyperkalemia Acute cystitis Qualifiers: Hematuria presence: with hematuria Qualified Code(s): N30.01 - Acute cystitis with hematuria Hematuria Qualifiers: Hematuria type: unspecified type Qualified Code(s): R31.9 - Hematuria, unspecified Failure to thrive Qualifiers: Failure to thrive age range: in adult Qualified Code(s): R62.7 - Adult failure to thrive Acute renal failure Qualifiers: Acute renal failure type: unspecified Qualified Code(s): N17.9 - Acute kidney failure, unspecified Disposition: -09 OP ADMIT IP TO THIS HOSP Is pt being admited?: Yes Condition: Stable Referrals: PRIMARY CARE, [Primary Care Provider] - 3-5 Days Time of Disposition: 23:54
[2019-07-08 23:41] LABS: Platelet Count 75 K/mm3 (140-440)
--- NOTE | 2019-07-08 23:41 | Cat Scan Report ---
CT ABDOMEN AND PELVIS WITHOUT CONTRAST INDICATION: Generalized weakness and hematuria. TECHNICAL: Multiple axial CT images of the abdomen and pelvis were acquired without intravenous contr ast. Sagittal and coronal reformats were obtained. All CTs at this facility utilize dose reduction techniques including automated exposure control, iterative reconstruction and weight based dosing whe n appropriate to reduce patient radiation dose to as low as reasonable achievable. COMPARISON: No previous studies are available for comparison. FINDINGS: Limited imaging of the bilateral lung bases demonstrates no evidence of acute abnormality. Abdomen: Evaluation of the abdomen is limited secondary to the lack of intravenous contrast and pauci ty of abdominal fat. There are innumerable low density lesions throughout the liver. The spleen and p ancreas show no evidence of acute abnormality. There is moderate hydronephrosis of both kidneys witho ut definitive perinephric stranding. There are several punctate nonobstructing intrarenal stones note d bilaterally. Pelvis: The urinary bladder is markedly distended and extends into the abdomen. No significant amount of free pelvic fluid is seen. Bones and Soft Tissues: Evaluation of bony structures demonstrates no evidence of destructive bony l esion. There are multilevel degenerative changes throughout the thoracolumbar spine. Evaluation of so ft tissue structures demonstrates soft tissue irregularity along both gluteal regions, left greater t alvarado right concerning for decubitus ulcer. IMPRESSION: 1. Marked distention of the urinary bladder representing bladder outlet obstruction. 2. Moderate bilateral hydronephrosis. The hydronephrosis may be secondary to the bladder outlet obstr uction. 3. Multiple nonobstructing intrarenal stones. 4. Soft tissue irregularity of both gluteal regions concerning for decubitus ulcer. Signer Name: Shasha Gonzalez MD Signed: 07/08/2019 11:37 PM Workstation Name: [email or web address]
[2019-07-09] MEDS ORDERED: ONDANSETRON 4 MG/2 ML INJ IV PRN (00:35)
[2019-07-09] MEDS ORDERED: PIPERACIL/TAZOBACTA 4.5/NS 100 4.5 GM/100 ML VIAL IV SCH ×2 (01:00)
--- NOTE | 2019-07-09 01:01 | History and Physical Report ---
<RAS CORTES - Last Filed: 07/09/19 01:08> History of Present Illness Date of examination: 07/09/19 Date of admission: 07/09/2019 Chief complaint: failure to thrive History of present illness: 59 year old -Mosotho female with history of rheumatoid arthritis, asthma, lupus, chronic anemia, bilateral sacral pressure ulcers who presents to [facility] ED with complaints of unable to walk or stand independently and poor oral intake. Of note patient is emaciated and chronically ill appearing. Her sister and son are present at the bedside. Patient is able to answer yes no questions but on able to provide detailed history. History is provided by patient's sister. According to patient's history patient has continued to decline and functional ability over the past 2 months. Sister states that she has had poor oral intake and has continued to lose weight over the past months. Approximately 1-2 weeks ago patient was taken to [facility] [place] [place] cell and was diagnosed with UTI. She was not admitted but received prescription for oral antibiotics and was discharge. Patient's functional status continued to decline, and presently she is on able to walk or stand on her own. Up until about 3-4 weeks ago patient continue to go to work as schedule. 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 Past History Past Medical History: anemia, arthritis, other (asthma, lupus, bilateral sacral pressure ulcers) Past Surgical History: appendectomy, hysterectomy (partial), Other (left leg shoulder) Social history: lives with family Family history: no significant family history Medications and Allergies Allergies Allergy/AdvReac Type Severity Reaction Status Date / Time azithromycin Allergy Swelling Verified 02/07/17 02:21 aspirin AdvReac Nausea Verified 02/06/17 13:00 Home Medications Medication Instructions Recorded Confirmed Last Taken Type Potassium Chloride [K-Dur] 20 meq PO QDAY 02/06/17 07/09/19 02/06/17 History Prednisone [predniSONE (Lainey) ER 5 mg PO QDAY 02/06/17 07/09/19 02/06/17 History TAB] oxyCODONE /ACETAMINOPHEN [Percocet 1 tab PO Q12H PRN #10 tablet 02/09/17 07/09/19 Unknown Rx 5/325 mg] Hydroxychloroquine [Plaquenil] 200 mg PO QDAY 07/09/19 07/09/19 Unknown History Active Meds: Active Medications Acetaminophen (Tylenol) 650 mg PO Q4H PRN PRN Reason: Pain MILD(1-3)/Fever >100.5/LEIVA Sodium Chloride (Nacl 0.9% 1000 Ml) 1,000 mls @ 250 mls/hr IV ONCE ONE Stop: 07/09/19 03:54 Last Admin: 07/09/19 00:20 Dose: 250 mls/hr Documented by: Sodium Chloride (Nacl 0.9% 1000 Ml) 1,000 mls @ 100 mls/hr IV DIRECT NITESH Piperacillin Sod/Tazobactam Sod (Zosyn/Ns 4.5gm/100ml) 4.5 gm in 100 mls @ 200 mls/hr IV Q12H NITESH; Protocol Ondansetron HCl (Zofran) 4 mg IV Q8H PRN PRN Reason: Nausea And Vomiting Sodium Chloride (Sodium Chloride Flush Syringe 10 Ml) 10 ml IV BID NITESH Sodium Chloride (Sodium Chloride Flush Syringe 10 Ml) 10 ml IV PRN PRN PRN Reason: LINE FLUSH Review of Systems ROS unobtainable: due to mental status Exam - Physical Exam Narrative exam: Physical exam General appearance: Present: Emaciated, arousable, malnourished, chronically ill-appearing, -Mosotho Mosotho adult female Mosotho - EENT Eyes: Present: PERRL, EOM intact ENT: hearing intact - Neck Neck: Present: supple, normal ROM - Respiratory Respiratory effort: Non-labored Respiratory: Diminished - Cardiovascular Heart rate: 93(bpm) Rhythm: Sinus rhythm Heart Sounds: Present: S1 & S2. Absent: rub, click - Extremities Extremities: no ischemia, pulses intact, extremities muscle wasting - Peripheral Assessment Peripheral Pulses: within normal limits - Abdominal General gastrointestinal: Distended, non-tender, normal bowel sounds - Integumentary Integumentary: Present: warm, dry, bilateral sacral pressure ulcers - Musculoskeletal Musculoskeletal: Generalized weakness -Neurological Neurological: CN II-XII intact - Psychiatric Psychiatric: Withdrawn - Constitutional Vitals: Temp Pulse Resp BP Pulse Ox 97.5 F L 91 H 15 103/56 100 07/08/19 19:36 07/09/19 00:15 07/09/19 00:15 07/09/19 00:15 07/09/19 00:15 Results - Labs CBC & Chem 7: 07/08/19 21:00 07/08/19 21:00 Labs: Laboratory Last Values WBC 10.5 K/mm3 (4.5-11.0) 07/08/19 21:00 RBC 2.41 M/mm3 (3.65-5.03) L 07/08/19 21:00 Hgb 7.2 gm/dl (10.1-14.3) L 07/08/19 21:00 Hct 21.4 % (30.3-42.9) L 07/08/19 21:00 MCV 89 fl (79-97) 07/08/19 21:00 MCH 30 pg (28-32) 07/08/19 21:00 MCHC 34 % (30-34) 07/08/19 21:00 RDW 15.2 % (13.2-15.2) 07/08/19 21:00 Plt Count 75 K/mm3 (140-440) L 07/08/19 21:00 Lymph % (Auto) 5.4 % (13.4-35.0) L 07/08/19 21:00 Bacon % (Auto) 10.0 % (0.0-7.3) H 07/08/19 21:00 Eos % (Auto) 0.2 % (0.0-4.3) 07/08/19 21:00 Baso % (Auto) 0.1 % (0.0-1.8) 07/08/19 21:00 Lymph # 0.6 K/mm3 (1.2-5.4) L 07/08/19 21:00 Bacon # 1.0 K/mm3 (0.0-0.8) H 07/08/19 21:00 Eos # 0.0 K/mm3 (0.0-0.4) 07/08/19 21:00 Baso # 0.0 K/mm3 (0.0-0.1) 07/08/19 21:00 Seg Neutrophils % 84.3 % (40.0-70.0) H 07/08/19 21:00 Seg Neutrophils # 8.8 K/mm3 (1.8-7.7) H 07/08/19 21:00 Sodium 134 mmol/L (137-145) L 07/08/19 21:00 Potassium 5.6 mmol/L (3.6-5.0) H 07/08/19 21:00 Chloride 101.0 mmol/L (98-107) 07/08/19 21:00 Carbon Dioxide 19 mmol/L (22-30) L 07/08/19 21:00 Anion Gap 20 mmol/L 07/08/19 21:00 BUN 123 mg/dL (7-17) H 07/08/19 21:00 Creatinine 1.9 mg/dL (0.7-1.2) H 07/08/19 21:00 Estimated GFR 33 ml/min 07/08/19 21:00 BUN/Creatinine Ratio 65 % 07/08/19 21:00 Glucose 135 mg/dL (65-100) H 07/08/19 21:00 Lactic Acid 3.20 mmol/L (0.7-2.0) H* 07/08/19 21:00 Calcium 9.9 mg/dL (8.4-10.2) 07/08/19 21:00 Phosphorus 2.40 mg/dL (2.5-4.5) L 07/08/19 21:00 Magnesium 2.50 mg/dL (1.7-2.3) H 07/08/19 21:00 Total Bilirubin 0.30 mg/dL (0.1-1.2) 07/08/19 21:00 AST 18 units/L (5-40) 07/08/19 21:00 ALT 10 units/L (7-56) 07/08/19 21:00 Alkaline Phosphatase 36 units/L (35-129) 07/08/19 21:00 Total Creatine Kinase 59 units/L (30-135) 07/08/19 21:00 Total Protein 6.9 g/dL (6.3-8.2) 07/08/19 21:00 Albumin 2.5 g/dL (3.9-5) L 07/08/19 21:00 Albumin/Globulin Ratio 0.6 % 07/08/19 21:00 Urine Color Yellow (Yellow) 07/08/19 20:42 Urine Turbidity Cloudy (Clear) 07/08/19 20:42 Urine pH 6.0 (5.0-7.0) 07/08/19 20:42 Ur Specific [place] 1.013 (1.003-1.030) 07/08/19 20:42 Urine Protein 30 mg/dl mg/dL (Negative) 07/08/19 20:42 Urine Glucose (UA) 50 mg/dL (Negative) 07/08/19 20:42 Urine Ketones Neg mg/dL (Negative) 07/08/19 20:42 Urine Blood Lg (Negative) 07/08/19 20:42 Urine Nitrite Neg (Negative) 07/08/19 20:42 Urine Bilirubin Neg (Negative) 07/08/19 20:42 Urine Urobilinogen < 2.0 mg/dL (<2.0) 07/08/19 20:42 Ur Leukocyte Esterase Lg (Negative) 07/08/19 20:42 Urine WBC (Auto) > 182.0 /HPF (0.0-6.0) H 07/08/19 20:42 Urine RBC (Auto) > 182.0 /HPF (0.0-6.0) 07/08/19 20:42 U Epithel Cells (Auto) 3.0 /HPF (0-13.0) 07/08/19 20:42 Urine WBC Clumps 3+ /HPF 07/08/19 20:42 - Imaging and Cardiology Imaging and Cardiology: CT Head: FINDINGS: BRAIN / INTRACRANIAL CONTENTS: No acute hemorrhage, mass effect, midline shift, or hydrocephalus. No appreciable acute large territorial or lacunar infarct. No large chronic infarct or focal atrophy. Normal brain volume and ventricular/sulcal size for age. There are a couple of subcortical white matter hypodensities in the posterior right frontal lobe on series 2 images 19 and 20. ORBITS: No significant abnormality of visualized orbits. SINUSES / MASTOIDS: No significant abnormality of visualized sinuses and mastoid air cells. Pneumatization of the petrous apices is noted. ADDITIONAL FINDINGS: None. IMPRESSION: 1. Small white matter hypodensities in the posterior right frontal lobe likely represent areas of chronic microangiopathic change and/or old small lacunar regions but remain age indeterminate in the absence of comparison imaging. If acute stroke is a strong clinical suspicion, further evaluation with MRI of the brain without contrast may be obtained. CT Abdomen/Pelvis: FINDINGS: Limited imaging of the bilateral lung bases demonstrates no evidence of acute abnormality. Abdomen: Evaluation of the abdomen is limited secondary to the lack of intravenous contrast and paucity of abdominal fat. There are innumerable low density lesions throughout the liver. The spleen and pancreas show no evidence of acute abnormality. There is moderate hydronephrosis of both kidneys without definitive perinephric stranding. There are several punctate nonobstructing intrarenal stones noted bilaterally. Pelvis: The urinary bladder is markedly distended and extends into the abdomen. No significant amount of free pelvic fluid is seen. Bones and Soft Tissues: Evaluation of bony structures demonstrates no evidence of destructive bony lesion. There are multilevel degenerative changes throughout the thoracolumbar spine. Evaluation of soft tissue structures demonstrates soft tissue irregularity along both gluteal regions, left greater than right concerning for decubitus ulcer. IMPRESSION: 1. Marked distention of the urinary bladder representing bladder outlet obstruction. 2. Moderate bilateral hydronephrosis. The hydronephrosis may be secondary to the bladder outlet obstruction. 3. Multiple nonobstructing intrarenal stones. 4. Soft tissue irregularity of both gluteal regions concerning for decubitus ulcer. Assessment and Plan Assessment and plan: 59 year old -[place]osoth[place] female with history of rheumatoid arthritis, asthma, lupus, chronic anemia, bilateral sacral pressure ulcers who presents to [facility] ED with complaints of failure to thrive. At the time of my examination patient is resting comfortably in stretcher. She opens eyes spontaneously and is able to answer yes no questions but unable to provide details. Urinary obstruction -CT Abdomen Pelvis showed: Marked distention of the urinary bladder representing bladder outlet obstruction -Ortiz placed in ED -Continue supportive care -Urology Consulted Hydronephrosis -CT Abdomen Pelvis showed: Moderate bilateral hydronephrosis -Ortiz placed in ED -Urology Consulted Nephrolithiasis -Multiple non obstructing renal stones seen on CT Abdomen/Pelvis -Receiving IVF Urinary tract infection -UA positive for UTI -urine wbc >182 -Urine culture pending -on IV Abx Hyperkalemia -on admission 5.6 -Receiving IVF -Continue to monitor electrolytes Hypotension -BP on admission 91/47 -Responsive to fluid resuscitation -On IVF -Continue to monitor BP -Hold all antihypertensive meds Thrombocytopenia -Plt 75 on admission -Hold anticoagulation -Continue to monitor PLT Chronic Anemia -Hemoglobin on admission 7.2 -No s/s of active bleeding -Continue to monitor hemoglobin -Transfuse as needed Bilateral sacral pressure ulcers -Present on admission -Wound care consulted Lactic acidosis -Lactic acid on admission 3.2 -Cultures pending -on IV Abx -on IVF -Continue to monitor Failure to thrive -CT head negative -BMI 16.8 -Poor oral intake -Continue supportive care -Dietitian consulted -Case management consulted Hx Asthma -Albuterol prn Hx Lupus DVT PPX -SCD's Advance Directives: No VTE prophylaxis?: Mechanical Plan of care discussed with patient/family: Yes <YINA KUHN - Last Filed: 07/09/19 06:06> History of Present Illness Date of admission: 07/09/19 00:35 Medications and Allergies Active Meds: Active Medications Acetaminophen (Tylenol) 650 mg PO Q4H PRN PRN Reason: Pain MILD(1-3)/Fever >100.5/LEIVA Albuterol (Proventil) 2.5 mg IH Q4HRT PRN PRN Reason: Shortness Of Breath Sodium Chloride (Nacl 0.9% 1000 Ml) 1,000 mls @ 250 mls/hr IV ONCE ONE Stop: 07/09/19 03:54 Last Admin: 07/09/19 00:20 Dose: 250 mls/hr Documented by: Sodium Chloride (Nacl 0.9% 1000 Ml) 1,000 mls @ 100 mls/hr IV DIRECT NITESH Piperacillin Sod/Tazobactam Sod (Zosyn/Ns 2.25 Gm/50ml) 2.25 gm in 50 mls @ 100 mls/hr IV Q8HR NITESH; Protocol Ondansetron HCl (Zofran) 4 mg IV Q8H PRN PRN Reason: Nausea And Vomiting Sodium Chloride (Sodium Chloride Flush Syringe 10 Ml) 10 ml IV BID NITESH Sodium Chloride (Sodium Chloride Flush Syringe 10 Ml) 10 ml IV PRN PRN PRN Reason: LINE FLUSH Sodium Polystyrene Sulfonate (Kionex) 15 gm PO ONCE ONE Stop: 07/09/19 02:35 Exam - Constitutional Vitals: Temp Pulse Resp BP Pulse Ox 97.5 F L 91 H 10 L 87/52 100 07/08/19 19:36 07/09/19 01:31 07/09/19 01:31 07/09/19 01:31 07/09/19 01:31 Results - Labs CBC & Chem 7: 07/09/19 05:34 07/09/19 04:03 Labs: Laboratory Last Values WBC 10.5 K/mm3 (4.5-11.0) 07/08/19 21:00 RBC 2.41 M/mm3 (3.65-5.03) L 07/08/19 21:00 Hgb 7.2 gm/dl (10.1-14.3) L 07/08/19 21:00 Hct 21.4 % (30.3-42.9) L 07/08/19 21:00 MCV 89 fl (79-97) 07/08/19 21:00 MCH 30 pg (28-32) 07/08/19 21:00 MCHC 34 % (30-34) 07/08/19 21:00 RDW 15.2 % (13.2-15.2) 07/08/19 21:00 Plt Count 75 K/mm3 (140-440) L 07/08/19 21:00 Lymph % (Auto) 5.4 % (13.4-35.0) L 07/08/19 21:00 Bacon % (Auto) 10.0 % (0.0-7.3) H 07/08/19 21:00 Eos % (Auto) 0.2 % (0.0-4.3) 07/08/19 21:00 Baso % (Auto) 0.1 % (0.0-1.8) 07/08/19 21:00 Lymph # 0.6 K/mm3 (1.2-5.4) L 07/08/19 21:00 Bacon # 1.0 K/mm3 (0.0-0.8) H 07/08/19 21:00 Eos # 0.0 K/mm3 (0.0-0.4) 07/08/19 21:00 Baso # 0.0 K/mm3 (0.0-0.1) 07/08/19 21:00 Seg Neutrophils % 84.3 % (40.0-70.0) H 07/08/19 21:00 Seg Neutrophils # 8.8 K/mm3 (1.8-7.7) H 07/08/19 21:00 Sodium 134 mmol/L (137-145) L 07/08/19 21:00 Potassium 5.6 mmol/L (3.6-5.0) H 07/08/19 21:00 Chloride 101.0 mmol/L (98-107) 07/08/19 21:00 Carbon Dioxide 19 mmol/L (22-30) L 07/08/19 21:00 Anion Gap 20 mmol/L 07/08/19 21:00 BUN 123 mg/dL (7-17) H 07/08/19 21:00 Creatinine 1.9 mg/dL (0.7-1.2) H 07/08/19 21:00 Estimated GFR 33 ml/min 07/08/19 21:00 BUN/Creatinine Ratio 65 % 07/08/19 21:00 Glucose 135 mg/dL (65-100) H 07/08/19 21:00 Lactic Acid 1.10 mmol/L (0.7-2.0) 07/09/19 01:50 Calcium 9.9 mg/dL (8.4-10.2) 07/08/19 21:00 Phosphorus 2.40 mg/dL (2.5-4.5) L 07/08/19 21:00 Magnesium 2.50 mg/dL (1.7-2.3) H 07/08/19 21:00 Total Bilirubin 0.30 mg/dL (0.1-1.2) 07/08/19 21:00 AST 18 units/L (5-40) 07/08/19 21:00 ALT 10 units/L (7-56) 07/08/19 21:00 Alkaline Phosphatase 36 units/L (35-129) 07/08/19 21:00 Total Creatine Kinase 59 units/L (30-135) 07/08/19 21:00 Total Protein 6.9 g/dL (6.3-8.2) 07/08/19 21:00 Albumin 2.5 g/dL (3.9-5) L 07/08/19 21:00 Albumin/Globulin Ratio 0.6 % 07/08/19 21:00 Urine Color Yellow (Yellow) 07/08/19 20:42 Urine Turbidity Cloudy (Clear) 07/08/19 20:42 Urine pH 6.0 (5.0-7.0) 07/08/19 20:42 Ur Specific [place] 1.013 (1.003-1.030) 07/08/19 20:42 Urine Protein 30 mg/dl mg/dL (Negative) 07/08/19 20:42 Urine Glucose (UA) 50 mg/dL (Negative) 07/08/19 20:42 Urine Ketones Neg mg/dL (Negative) 07/08/19 20:42 Urine Blood Lg (Negative) 07/08/19 20:42 Urine Nitrite Neg (Negative) 07/08/19 20:42 Urine Bilirubin Neg (Negative) 07/08/19 20:42 Urine Urobilinogen < 2.0 mg/dL (<2.0) 07/08/19 20:42 Ur Leukocyte Esterase Lg (Negative) 07/08/19 20:42 Urine WBC (Auto) > 182.0 /HPF (0.0-6.0) H 07/08/19 20:42 Urine RBC (Auto) > 182.0 /HPF (0.0-6.0) 07/08/19 20:42 U Epithel Cells (Auto) 3.0 /HPF (0-13.0) 07/08/19 20:42 Urine WBC Clumps 3+ /HPF 07/08/19 20:42 Assessment and Plan Assessment and plan: 59 -year-old woman with SLE, RA, was brought to the emergency room by her sister for evaluation. She was seen at [facility] 2 weeks ago, started on Levaquin for urinary tract infection, also given Flagyl for diarrhea. She was also noted to have some blood in her diaper, no further episodes. Patient although also had diarrhea for a day, she was given Levaquin and Flagyl and discharged from the ER. Patient with sepsis secondary to urinary tract infection, bladder outlet obstruction, ortiz place. She is anemic, thrombocytopenia, agree with Zosyn, urology consult, in addition transfuse blood, and Kayexalate for hyper kalemia. Consult surgery for sacral deecubitus. Discuss with sister
[2019-07-09] MEDS ORDERED: SODIUM POLYSTYRENE 15 GM/60 ML ORAL LIQD PO ONE (02:34)
[2019-07-09] MEDS: SODIUM CHLORIDE 0.9% 1000 ML 1,000 ML IV SCH ×2 (03:11→16:58)
[2019-07-09] MEDS ORDERED: SODIUM CHLORIDE 0.9% 500 ML 500 ML IV ONE ×3 (03:42→17:00)
[2019-07-09] MEDS: PIPERACIL-TAZO 2.25 GM/50 ML 2.25 GM/50 ML BAG IV SCH ×3 (03:53→20:39)
[2019-07-09 05:45] LABS: Basophils % (Auto) 0.1 % (0.0-1.8); Eosinophils % (Auto) 0.5 % (0.0-4.3); Hematocrit 20.5 % (30.3-42.9); Lymphocytes # (Auto) 0.5 K/mm3 (1.2-5.4); Lymphocytes % (Auto) 6.1 % (13.4-35.0); Mean Corpuscular HGB Conc 34 % (30-34); Mean Corpuscular Volume 89 fl (79-97); Monocytes # (Auto) 0.7 K/mm3 (0.0-0.8); Monocytes % (Auto) 7.9 % (0.0-7.3); Red Cell Distribution Width 15.1 % (13.2-15.2)
[2019-07-09 05:46] LABS: Platelet Count 67 K/mm3 (140-440)
[2019-07-09] MEDS ORDERED: SODIUM CHLORIDE 0.9% 1000 ML 1,000 ML IV ONE (06:05)
[2019-07-09] MEDS ORDERED: SODIUM PHOSPHATE 45 MMOL in SODIUM CHLORIDE 0.9% 500 ML 500 ML IV ONE (10:00)
--- NOTE | 2019-07-09 12:30 | Event Note ---
Date: 07/09/19 She was admitted early this morning Seen and evaluated, medical records reviewed Agree with the current management Follow surgery and urology evaluation and recommendations Monitor closely and adjust management as needed
--- NOTE | 2019-07-09 12:58 | Consultation ---
History of Present Illness Consult date: 07/09/19 Reason for consult: wound care Chief complaint: wound - History of present illness History of present illness: 59-year-old female with history of lupus, rheumatoid arthritis, anemia who was brought to the hospital by her family due to progressive decline in her condition, weakness. According to the patient's family, the patient stopped taking her medications. She has not been feeling well and has stopped walking 1-2 months ago. She has stopped eating and has lost more than 30 pounds in the last 2 months. Patient has been back and forth to the doctor and was recently started on antibiotics for possible UTI. She has also been incontinent of urine and stool. Due to her immobility and bedbound status, the patient developed sacral and issue wounds. No fevers, chills, chest pain, shortness of breath. Surgery is asked to evaluate the patient for her wounds. Past History Past Medical History: anemia, arthritis, other (asthma, lupus, bilateral sacral pressure ulcers) Past Surgical History: appendectomy, hysterectomy (partial), Other (left leg shoulder) Social history: lives with family Family history: no significant family history Medications and Allergies Allergies Allergy/AdvReac Type Severity Reaction Status Date / Time azithromycin Allergy Swelling Verified 02/07/17 02:21 aspirin AdvReac Nausea Verified 02/06/17 13:00 Home Medications Medication Instructions Recorded Confirmed Last Taken Type Potassium Chloride [K-Dur] 20 meq PO QDAY 02/06/17 07/09/19 02/06/17 History Prednisone [predniSONE (Lainey) ER 5 mg PO QDAY 02/06/17 07/09/19 02/06/17 History TAB] oxyCODONE /ACETAMINOPHEN [Percocet 1 tab PO Q12H PRN #10 tablet 02/09/17 07/09/19 Unknown Rx 5/325 mg] Hydroxychloroquine [Plaquenil] 200 mg PO QDAY 07/09/19 07/09/19 Unknown History Active Meds: Active Medications Acetaminophen (Tylenol) 650 mg PO Q4H PRN PRN Reason: Pain MILD(1-3)/Fever >100.5/LEIVA Albuterol (Proventil) 2.5 mg IH Q4HRT PRN PRN Reason: Shortness Of Breath Sodium Chloride (Nacl 0.9% 1000 Ml) 1,000 mls @ 150 mls/hr IV DIRECT NITESH Last Admin: 07/09/19 03:11 Dose: 100 mls/hr Documented by: Piperacillin Sod/Tazobactam Sod (Zosyn/Ns 2.25 Gm/50ml) 2.25 gm in 50 mls @ 100 mls/hr IV Q8H NITESH; Protocol Last Admin: 07/09/19 10:50 Dose: 100 mls/hr Documented by: Sodium Phosphate 45 mmol/ (Sodium Chloride) 515 mls @ 84 mls/hr IV ONCE ONE Stop: 07/09/19 16:07 Last Admin: 07/09/19 10:50 Dose: 84 mls/hr Documented by: Ondansetron HCl (Zofran) 4 mg IV Q8H PRN PRN Reason: Nausea And Vomiting Sodium Chloride (Sodium Chloride Flush Syringe 10 Ml) 10 ml IV BID NITESH Sodium Chloride (Sodium Chloride Flush Syringe 10 Ml) 10 ml IV PRN PRN PRN Reason: LINE FLUSH Review of Systems All systems: negative (10 point review of systems performed and negative except for that listed in HPI) Exam Vital Signs Temp Pulse Resp BP Pulse Ox 97.5 F L 108 H 18 81/47 100 07/08/19 19:36 07/08/19 19:36 07/08/19 19:36 07/08/19 19:36 07/08/19 19:36 Narrative exam: Gen: awake, alert, oriented 3. Cachectic T: No scleral icterus CV: S1, S2 present Respiratory: No audible wheezes Abdomen: Soft, nontender, nondistended Extremities: No clubbing, cyanosis, edema. Bilateral lower extremities are slightly contracted. Sacrum: Unstageable sacral wound with necrotic skin over 50% of wound. Remainder of wound is clean. No drainage, odor, erythema, fluctuance or induration. Results - Labs 07/09/19 05:34 07/09/19 04:03 Abnormal lab results 07/08/19 07/08/19 07/08/19 Range/Units 20:42 21:00 21:00 RBC 2.41 L (3.65-5.03) M/mm3 Hgb 7.2 L (10.1-14.3) gm/dl Hct 21.4 L (30.3-42.9) % Plt Count 75 L (140-440) K/mm3 Lymph % (Auto) 5.4 L (13.4-35.0) % Barron % (Auto) 10.0 H (0.0-7.3) % Lymph # 0.6 L (1.2-5.4) K/mm3 Barron # 1.0 H (0.0-0.8) K/mm3 Seg Neutrophils % 84.3 H (40.0-70.0) % Seg Neutrophils # 8.8 H (1.8-7.7) K/mm3 Sodium 134 L (137-145) mmol/L Potassium 5.6 H (3.6-5.0) mmol/L Chloride (98-107) mmol/L Carbon Dioxide 19 L (22-30) mmol/L BUN 123 H (7-17) mg/dL Creatinine 1.9 H (0.7-1.2) mg/dL Glucose 135 H (65-100) mg/dL Lactic Acid (0.7-2.0) mmol/L Phosphorus (2.5-4.5) mg/dL Magnesium (1.7-2.3) mg/dL Albumin 2.5 L (3.9-5) g/dL Prealbumin (0.200-0.400) g/L Urine WBC (Auto) > 182.0 H (0.0-6.0) /HPF Crossmatch 07/08/19 07/08/19 07/09/19 Range/Units 21:00 21:00 04:03 RBC (3.65-5.03) M/mm3 Hgb (10.1-14.3) gm/dl Hct (30.3-42.9) % Plt Count (140-440) K/mm3 Lymph % (Auto) (13.4-35.0) % Barron % (Auto) (0.0-7.3) % Lymph # (1.2-5.4) K/mm3 Barron # (0.0-0.8) K/mm3 Seg Neutrophils % (40.0-70.0) % Seg Neutrophils # (1.8-7.7) K/mm3 Sodium (137-145) mmol/L Potassium (3.6-5.0) mmol/L Chloride (98-107) mmol/L Carbon Dioxide (22-30) mmol/L BUN (7-17) mg/dL Creatinine (0.7-1.2) mg/dL Glucose (65-100) mg/dL Lactic Acid 3.20 H* (0.7-2.0) mmol/L Phosphorus 2.40 L (2.5-4.5) mg/dL Magnesium 2.50 H (1.7-2.3) mg/dL Albumin (3.9-5) g/dL Prealbumin (0.200-0.400) g/L Urine WBC (Auto) (0.0-6.0) /HPF Crossmatch See Detail 07/09/19 07/09/19 07/09/19 Range/Units 04:03 04:03 04:03 RBC (3.65-5.03) M/mm3 Hgb (10.1-14.3) gm/dl Hct (30.3-42.9) % Plt Count (140-440) K/mm3 Lymph % (Auto) (13.4-35.0) % Barron % (Auto) (0.0-7.3) % Lymph # (1.2-5.4) K/mm3 [place]ron # (0.0-0.8) K/mm3 Seg Neutrophils % (40.0-70.0) % Seg Neutrophils # (1.8-7.7) K/mm3 Sodium (137-145) mmol/L Potassium (3.6-5.0) mmol/L Chloride 109.4 H (98-107) mmol/L Carbon Dioxide 19 L (22-30) mmol/L BUN 102 H (7-17) mg/dL Creatinine (0.7-1.2) mg/dL Glucose (65-100) mg/dL Lactic Acid (0.7-2.0) mmol/L Phosphorus 1.80 L D (2.5-4.5) mg/dL Magnesium (1.7-2.3) mg/dL Albumin (3.9-5) g/dL Prealbumin 0.132 L (0.200-0.400) g/L Urine WBC (Auto) (0.0-6.0) /HPF Crossmatch 07/09/19 Range/Units 05:34 RBC 2.30 L (3.65-5.03) M/mm3 Hgb 7.0 L (10.1-14.3) gm/dl Hct 20.5 L (30.3-42.9) % Plt Count 67 L (140-440) K/mm3 Lymph % (Auto) 6.1 L (13.4-35.0) % Barron % (Auto) 7.9 H (0.0-7.3) % Lymph # 0.5 L (1.2-5.4) K/mm3 [place]ron # (0.0-0.8) K/mm3 Seg Neutrophils % 85.4 H (40.0-70.0) % Seg Neutrophils # (1.8-7.7) K/mm3 Sodium (137-145) mmol/L Potassium (3.6-5.0) mmol/L Chloride (98-107) mmol/L Carbon Dioxide (22-30) mmol/L BUN (7-17) mg/dL Creatinine (0.7-1.2) mg/dL Glucose (65-100) mg/dL Lactic Acid (0.7-2.0) mmol/L Phosphorus (2.5-4.5) mg/dL Magnesium (1.7-2.3) mg/dL Albumin (3.9-5) g/dL Prealbumin (0.200-0.400) g/L Urine WBC (Auto) (0.0-6.0) /HPF Crossmatch Diabetes panel 07/08/19 07/09/19 07/09/19 Range/Units 21:00 04:03 04:03 Sodium 134 L 140 (137-145) mmol/L Potassium 5.6 H 4.6 4.6 (3.6-5.0) mmol/L Chloride 101.0 109.4 H (98-107) mmol/L Carbon Dioxide 19 L 19 L (22-30) mmol/L BUN 123 H 102 H (7-17) mg/dL Creatinine 1.9 H 1.2 (0.7-1.2) mg/dL Glucose 135 H 91 (65-100) mg/dL Calcium 9.9 9.0 (8.4-10.2) mg/dL AST 18 (5-40) units/L ALT 10 (7-56) units/L Alkaline Phosphatase 36 (35-129) units/L Total Protein 6.9 (6.3-8.2) g/dL Albumin 2.5 L (3.9-5) g/dL Calcium panel 07/08/19 07/08/19 07/09/19 Range/Units 21:00 21:00 04:03 Calcium 9.9 9.0 (8.4-10.2) mg/dL Phosphorus 2.40 L (2.5-4.5) mg/dL Albumin 2.5 L (3.9-5) g/dL 07/09/19 Range/Units 04:03 Calcium (8.4-10.2) mg/dL Phosphorus 1.80 L D (2.5-4.5) mg/dL Albumin (3.9-5) g/dL Pituitary panel 07/08/19 07/09/19 07/09/19 Range/Units 21:00 04:03 04:03 Sodium 134 L 140 (137-145) mmol/L Potassium 5.6 H 4.6 4.6 (3.6-5.0) mmol/L Chloride 101.0 109.4 H (98-107) mmol/L Carbon Dioxide 19 L 19 L (22-30) mmol/L BUN 123 H 102 H (7-17) mg/dL Creatinine 1.9 H 1.2 (0.7-1.2) mg/dL Glucose 135 H 91 (65-100) mg/dL Calcium 9.9 9.0 (8.4-10.2) mg/dL Adrenal panel 07/08/19 07/09/19 07/09/19 Range/Units 21:00 04:03 04:03 Sodium 134 L 140 (137-145) mmol/L Potassium 5.6 H 4.6 4.6 (3.6-5.0) mmol/L Chloride 101.0 109.4 H (98-107) mmol/L Carbon Dioxide 19 L 19 L (22-30) mmol/L BUN 123 H 102 H (7-17) mg/dL Creatinine 1.9 H 1.2 (0.7-1.2) mg/dL Glucose 135 H 91 (65-100) mg/dL Calcium 9.9 9.0 (8.4-10.2) mg/dL Total Bilirubin 0.30 (0.1-1.2) mg/dL AST 18 (5-40) units/L ALT 10 (7-56) units/L Alkaline Phosphatase 36 (35-129) units/L Total Protein 6.9 (6.3-8.2) g/dL Albumin 2.5 L (3.9-5) g/dL - Imaging CT scan - abdomen: report reviewed, image reviewed CT scan - pelvis: report reviewed, image reviewed Assessment and Plan 59 yo F with 1. unstageable sacral and ischial wounds 2. severe protein calorie malnutrition 3. bedbound 4. bladder outlet obstruction 5. sepsis 2/2 UTI 6. Lupus 7. thrombocytopenia 8. KAREN Plan: 1. Reg diet with protein supplements. Magnetic Resonance Technologist on board. 2. Offloading 3. abx per 1' service 4. GI consult for PEG tube. I do not feel the patient's oral intake even with protein supplements is going to be adequate to heal wounds. Will need nursing home feeding access. 5. Wounds do not appear infected. Recommend daily wound care as ordered by claim technician. May need eventual debridement but not urgent. 6. Wound care consult pending 7. IVF Thank you, please call with questions. Plan discussed extensively with patient and family at bedside. All questions answered.
--- NOTE | 2019-07-09 18:18 | XRay Report ---
CHEST 1 VIEW 07/09/2019 5:40 PM INDICATION / CLINICAL INFORMATION: SOB. COMPARISON: Chest x-ray on 02/06/2017 FINDINGS: SUPPORT DEVICES: None. HEART / MEDIASTINUM: No significant abnormality. LUNGS / PLEURA: There is mild chronic appearing reticular interstitial prominence in both lungs witho ut focal consolidation or significant effusion. No pneumothorax. ADDITIONAL FINDINGS: Is unchanged right convex scoliosis of the thoracolumbar spine. IMPRESSION: 1. Mild chronic appearing reticular interstitial opacities in both lungs without acute consolidation or other acute abnormality. Signer Name: Alex Richardson MD Signed: 07/09/2019 6:13 PM Workstation Name: [id number]
[2019-07-09] MEDS: ACETAMINOPHEN 325 MG TAB PO PRN (20:38)
[2019-07-10] MEDS: SODIUM CHLORIDE 0.9% 1000 ML 1,000 ML IV SCH ×3 (00:20→17:52)
[2019-07-10] MEDS: PIPERACIL-TAZO 2.25 GM/50 ML 2.25 GM/50 ML BAG IV SCH ×3 (02:42→21:56)
[2019-07-10 05:58] LABS: Basophils % (Auto) 0.3 % (0.0-1.8); Eosinophils # (Auto) 0.1 K/mm3 (0.0-0.4); Eosinophils % (Auto) 0.8 % (0.0-4.3); Hematocrit 22.1 % (30.3-42.9); Hemoglobin 7.5 gm/dl (10.1-14.3); Lymphocytes # (Auto) 0.5 K/mm3 (1.2-5.4); Lymphocytes % (Auto) 6.4 % (13.4-35.0); Mean Corpuscular HGB Conc 34 % (30-34); Mean Corpuscular Volume 87 fl (79-97); Monocytes # (Auto) 0.6 K/mm3 (0.0-0.8); Monocytes % (Auto) 8.4 % (0.0-7.3); Red Blood Count 2.53 M/mm3 (3.65-5.03); Red Cell Distribution Width 15.3 % (13.2-15.2)
[2019-07-10 06:10] LABS: BUN/Creatinine Ratio 81; Blood Urea Nitrogen 57 mg/dL (7-17); Hemolysis Index 1
[2019-07-10 06:33] LABS: Calcium 7.4 mg/dL (8.4-10.2)
[2019-07-10 06:34] LABS: Platelet Count 58 K/mm3 (140-440)
[2019-07-10] MEDS ORDERED: SODIUM CHLORIDE 0.9% 500 ML 250 ML IV ONE (08:00)
[2019-07-10] MEDS ORDERED: CALCIUM PO SCH (10:00)
[2019-07-10] MEDS ORDERED: VITAMIN C 1000 MG PO SCH (10:00)
[2019-07-10] MEDS ORDERED: PREDNISONE 5 MG PO SCH (10:00)
[2019-07-10] MEDS ORDERED: CYANOCOBALAMIN 50 MCG PO SCH (10:00)
[2019-07-10] MEDS ORDERED: CHOLECALCIFEROL PO SCH (10:00)
[2019-07-10] MEDS: CALCIUM CARBONATE/VITAMIN D3 500 MG-200 UNIT TAB PO SCH (10:11)
[2019-07-10] MEDS: predniSONE 5 MG TAB PO SCH (10:11)
[2019-07-10] MEDS: HYDROXYCHLOROQUINE 200 MG TAB PO SCH (10:11)
[2019-07-10] MEDS: ASCORBIC ACID 500 MG TAB PO SCH (10:11)
[2019-07-10] MEDS: CYANOCOBALAMIN (VIT B-12) 100 MCG TAB PO SCH (10:12)
--- NOTE | 2019-07-10 11:18 | Progress Note ---
Assessment and Plan Assessment and plan: 59 year old -[place] female with history of rheumatoid arthritis, asthma, lupus, chronic anemia, bilateral sacral pressure ulcers who presents to [facility] ED with complaints of failure to thrive. At the time of my examination patient is resting comfortably in stretcher. She opens eyes spontaneously and is able to answer yes no questions but unable to provide details. --Hypokalemia: Replenish with Kcl --Urinary retention; Continuous Pozo catheterization Urology evaluation and recommendation noted and appreciated --Hydronephrosis; due to bladder outlet obstruction Urinary retention, continuous Pozo catheterization Check Follow-up renal ultrasound in 1-2 days --Nephrolithiasis Multiple non obstructing renal stones seen Follow-up urology upon discharge --Urinary tract infection; present on admission Empiric antibiotics, follow cultures Supportive care --Severe malnutrition: Nutrition supplements PEG placement recommended by surgery --Hyperkalemia resolved; --Hypokalemia; replenished per protocol Monitor levels --Hypotension; Gentle hydration and closely monitor blood pressures Pressors if needed --History of lupus; continue Plaquenil and steroids, supportive care --Oral thrush; Nystatin swish and swallow Diflucan, supportive care --Sacral decubitus ulcers; present on admission Surgery evaluated the patient, Wound care, surgical debridement if needed --Multiple decubitus ulcers of different stages; See wound care note and images --Thrombocytopenia; Due to lupus, closely monitor --Chronic Anemia Monitor H&H and transfuse as needed --Lactic acidosis; Probably secondary to sepsis, IV antibiotics Follow cultures --Failure to thrive in an adult; Nutrition supplements,Nutrition consult PEG tube placement and PEG feeds --Hx Asthma; Oxygen, nebulizers as needed, --DVT prophylaxis;SCDs, No pharmacological anticoagulation in view of thrombocytopenia Physical therapy occupational therapy and rehabilitation Monitor closely and adjust management as needed Plan of care reviewed with the patient and multiple family members at the bedside History Interval history: Patient seen and examined c/o gen weakness Complaints of oral thrush and mild difficulty swallowing Patient looks chronically ill cachectic malnourished Vital signs noted Hospitalist Physical - Constitutional Vitals: Temp Pulse Resp BP Pulse Ox 98.7 F 88 10 L 94/50 100 07/10/19 04:00 07/10/19 11:00 07/10/19 11:00 07/10/19 11:00 07/10/19 11:00 General appearance: Present: no acute distress, cachectic, disheveled - EENT Eyes: Present: PERRL, EOM intact - Neck Neck: Present: supple, normal ROM - Respiratory Respiratory effort: normal Respiratory: bilateral: diminished, negative: rales, rhonchi, wheezing - Cardiovascular Rhythm: regular Heart Sounds: Present: S1 & S2 - Extremities Extremities: abnormal (decubitus ulcers) - Abdominal General gastrointestinal: soft, non-tender, non-distended, normal bowel sounds - Integumentary Integumentary: Present: warm (chronic skin changes, multiple decubitus ulcers) - Psychiatric Psychiatric: appropriate mood/affect, cooperative - Neurologic Neurologic: moves all extremities Results - Labs CBC & Chem 7: 07/10/19 05:11 07/10/19 05:11 Labs: Laboratory Last Values WBC 7.1 K/mm3 (4.5-11.0) 07/10/19 05:11 RBC 2.53 M/mm3 (3.65-5.03) L 07/10/19 05:11 Hgb 7.5 gm/dl (10.1-14.3) L 07/10/19 05:11 Hct 22.1 % (30.3-42.9) L 07/10/19 05:11 MCV 87 fl (79-97) 07/10/19 05:11 MCH 30 pg (28-32) 07/10/19 05:11 MCHC 34 % (30-34) 07/10/19 05:11 RDW 15.3 % (13.2-15.2) H 07/10/19 05:11 Plt Count 58 K/mm3 (140-440) L 07/10/19 05:11 Lymph % (Auto) 6.4 % (13.4-35.0) L 07/10/19 05:11 [place] % (Auto) 8.4 % (0.0-7.3) H 07/10/19 05:11 Eos % (Auto) 0.8 % (0.0-4.3) 07/10/19 05:11 Baso % (Auto) 0.3 % (0.0-1.8) 07/10/19 05:11 Lymph # 0.5 K/mm3 (1.2-5.4) L 07/10/19 05:11 [place] # 0.6 K/mm3 (0.0-0.8) 07/10/19 05:11 Eos # 0.1 K/mm3 (0.0-0.4) 07/10/19 05:11 Baso # 0.0 K/mm3 (0.0-0.1) 07/10/19 05:11 Seg Neutrophils % 84.1 % (40.0-70.0) H 07/10/19 05:11 Seg Neutrophils # 6.0 K/mm3 (1.8-7.7) 07/10/19 05:11 Sodium 143 mmol/L (137-145) 07/10/19 05:11 Potassium 3.3 mmol/L (3.6-5.0) L D 07/10/19 05:11 Chloride 115.4 mmol/L (98-107) H 07/10/19 05:11 Carbon Dioxide 16 mmol/L (22-30) L 07/10/19 05:11 Anion Gap 15 mmol/L 07/10/19 05:11 BUN 57 mg/dL (7-17) H 07/10/19 05:11 Creatinine 0.7 mg/dL (0.7-1.2) 07/10/19 05:11 Estimated GFR > 60 ml/min 07/10/19 05:11 BUN/Creatinine Ratio 81 % 07/10/19 05:11 Glucose 82 mg/dL (65-100) 07/10/19 05:11 Lactic Acid 1.00 mmol/L (0.7-2.0) 07/09/19 04:03 Calcium 7.4 mg/dL (8.4-10.2) L D 07/10/19 05:11 Phosphorus 1.80 mg/dL (2.5-4.5) L D 07/09/19 04:03 Magnesium 2.50 mg/dL (1.7-2.3) H 07/08/19 21:00 Total Bilirubin 0.30 mg/dL (0.1-1.2) 07/08/19 21:00 AST 18 units/L (5-40) 07/08/19 21:00 ALT 10 units/L (7-56) 07/08/19 21:00 Alkaline Phosphatase 36 units/L (35-129) 07/08/19 21:00 Total Creatine Kinase 59 units/L (30-135) 07/08/19 21:00 NT-Pro-B Natriuret Pep 309.8 pg/mL (0-900) 07/09/19 01:50 Total Protein 6.9 g/dL (6.3-8.2) 07/08/19 21:00 Albumin 2.5 g/dL (3.9-5) L 07/08/19 21:00 Albumin/Globulin Ratio 0.6 % 07/08/19 21:00 Prealbumin 0.132 g/L (0.200-0.400) L 07/09/19 04:03 Urine Color Yellow (Yellow) 07/08/19 20:42 Urine Turbidity Cloudy (Clear) 07/08/19 20:42 Urine pH 6.0 (5.0-7.0) 07/08/19 20:42 Ur Specific [place] 1.013 (1.003-1.030) 07/08/19 20:42 Urine Protein 30 mg/dl mg/dL (Negative) 07/08/19 20:42 Urine Glucose (UA) 50 mg/dL (Negative) 07/08/19 20:42 Urine Ketones Neg mg/dL (Negative) 07/08/19 20:42 Urine Blood Lg (Negative) 07/08/19 20:42 Urine Nitrite Neg (Negative) 07/08/19 20:42 Urine Bilirubin Neg (Negative) 07/08/19 20:42 Urine Urobilinogen < 2.0 mg/dL (<2.0) 07/08/19 20:42 Ur Leukocyte Esterase Lg (Negative) 07/08/19 20:42 Urine WBC (Auto) > 182.0 /HPF (0.0-6.0) H 07/08/19 20:42 Urine RBC (Auto) > 182.0 /HPF (0.0-6.0) 07/08/19 20:42 U Epithel Cells (Auto) 3.0 /HPF (0-13.0) 07/08/19 20:42 Urine WBC Clumps 3+ /HPF 07/08/19 20:42 Blood Type A POSITIVE 07/09/19 04:03 Antibody Screen Negative 07/09/19 04:03 Crossmatch See Detail 07/09/19 04:03 Active Medications - Current Medications Current Medications: Generic Name Dose Route Start Last Admin Trade Name Freq PRN Reason Stop Dose Admin Acetaminophen 650 mg 07/09/19 00:35 07/09/19 20:38 Tylenol PO 650 mg Q4H PRN Administration Pain MILD(1-3)/Fever >100.5/LEIVA Albuterol 2.5 mg 07/09/19 01:08 Proventil IH Q4HRT PRN Shortness Of Breath Ascorbic Acid 1,000 mg 07/10/19 10:00 07/10/19 10:11 Vitamin C PO 1,000 mg QDAY NITESH Administration Calcium/Vitamin D 1 each 07/10/19 10:00 07/10/19 10:11 Oysco D 500 Mg-200 Unit PO 1 each DAILY NITESH Administration Cyanocobalamin 50 mcg 07/10/19 10:00 07/10/19 10:12 Vitamin B-12 PO 50 mcg QDAY NITESH Administration Fluconazole 100 mg 07/11/19 10:00 Diflucan PO QDAY NITESH Hydroxychloroquine Sulfate 200 mg 07/10/19 10:00 07/10/19 10:11 Plaquenil PO 200 mg QDAY NITESH Administration Sodium Chloride 1,000 mls @ 150 mls/hr 07/09/19 01:00 07/10/19 10:09 Nacl 0.9% 1000 Ml IV 100 mls/hr DIRECT NITESH Administration Piperacillin Sod/Tazobactam Sod 2.25 gm in 50 mls @ 100 mls/hr 07/09/19 03:00 07/10/19 02:42 Zosyn/Ns 2.25 Gm/50ml IV 100 mls/hr Q8H NITESH Administration Protocol Lidocaine HCl 15 ml 07/10/19 14:00 Magic Mouthwash PO TID NITESH Ondansetron HCl 4 mg 07/09/19 00:35 Zofran IV Q8H PRN Nausea And Vomiting Prednisone 5 mg 07/10/19 10:00 07/10/19 10:11 Deltasone PO 5 mg QDAY NITESH Administration Sodium Chloride 10 ml 07/09/19 10:00 07/10/19 10:11 Sodium Chloride Flush Syringe 10 Ml IV 10 ml BID NITESH Administration Sodium Chloride 10 ml 07/09/19 00:35 Sodium Chloride Flush Syringe 10 Ml IV PRN PRN LINE FLUSH Nutrition/Malnutrition Assess - Dietary Evaluation Nutrition/Malnutrition Findings: Nutrition Notes Start: 07/09/19 13:14 Freq: Status: Active Protocol: Document 07/09/19 13:14 LP (Rec: 07/09/19 13:21 LP [id number]) Nutrition Notes Need for Assessment generated from: MD Order Initial or Follow up Assessment Current Diagnosis Acute Kidney Injury Other Pertinent Diagnosis Lupus, Nephrolithiasis, hydronephphritis, acute cystitis Current Diet Mechanical soft Labs/Tests BUN 102 Phos 2.4 Mg 2.5 Pertinent Medications NS at 150ml/hr Height 5 ft 3 in Weight 43.091 kg [place] Body Weight (kg) 52.27 BMI 16.8 Weight Status Underweight Subjective/Other Information Consult for malnutrition. 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 Pt has consumed supplements at home but not consistently. Pt family states wt loss but unsure of amount. Family not opposed to tubefeeding if pt needs it. 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 Is patient on ventilator? No Is Patient Ambulatory and/or Out of Bed No REE-([facility]-confined to bed) 1169.280 Kcal/Kg value to use for calculation 35 Approximate Energy Requirements Using 1508 kcal/Kg Calculation Used for Recommendations Kcal/kg Additional Notes Protein needs are 52-65g (1.2- 1.5g/kg) Fluid needs are 1ml/kcal Nutrition Intervention Change Diet Order: Mechanical soft Add Supplement/Snack (indicate name/kcal Ensure Enlive TID [place] /protein ) Provides kCal: 1,080 Provides Protein (gm) 60 Goal #1 Meet at least 80% of kcal and protein needs via meals and ONS Anticipated Discharge Needs: Unable to determine at this time Follow-Up By: 07/11/19 Additional Comments Follow for intakes
--- NOTE | 2019-07-10 12:40 | Gastroenterology Consultation ---
History of Present Illness - Reason for Consult Consult date: 07/10/19 PEG placement Requesting physician: DENG MACIEL - History of Present Illness Patient is a 59 y/o female with PMH of lupus, RA, chronic anemia, and bilateral sacral pressure ulcers (bedbound status) who was admitted and currently being treated for failure to thrive, along with bladder outlet obstruction, and sepsis 2/2 UTI. GI has been consulted per surgery for PEG placement given limited PO intake/wt loss/malnutrition to facility meeting nutritional needs for wound healing. Currently tolerating small amounts of PO with supplements per dietary recommendations. Denies abd pain or N/V. Past History Past Medical History: anemia, arthritis, other (asthma, lupus, bilateral sacral pressure ulcers) Past Surgical History: appendectomy, hysterectomy (partial), Other (left leg shoulder) Social history: lives with family, other (bedbound) Family history: no significant family history Medications and Allergies Allergies Allergy/AdvReac Type Severity Reaction Status Date / Time azithromycin Allergy Swelling Verified 02/07/17 02:21 aspirin AdvReac Nausea Verified 02/06/17 13:00 Home Medications Medication Instructions Recorded Confirmed Last Taken Type Potassium Chloride [K-Dur] 20 meq PO QDAY 02/06/17 07/09/19 02/06/17 History Prednisone [predniSONE (Lainey) ER 5 mg PO QDAY 02/06/17 07/09/19 02/06/17 History TAB] oxyCODONE /ACETAMINOPHEN [Percocet 1 tab PO Q12H PRN #10 tablet 02/09/17 07/09/19 Unknown Rx 5/325 mg] Calcium 600-D3 20Mcg(800 Unit) 1 tab PO QDAY 07/09/19 07/09/19 07/07/19 08:00 History Cyanocobalamin (Vitamin B-12) 50 mcg PO QDAY 07/09/19 07/09/19 07/07/19 08:00 History Ferrous Sulfate 65 mg PO QDAY 07/09/19 07/09/19 07/07/19 08:00 History Hydroxychloroquine [Plaquenil] 200 mg PO QDAY 07/09/19 07/09/19 Unknown History Vitamin C 1,000 mg PO QDAY 07/09/19 07/09/19 07/07/19 08:00 History Active Meds: Active Medications Acetaminophen (Tylenol) 650 mg PO Q4H PRN PRN Reason: Pain MILD(1-3)/Fever >100.5/LEIVA Last Admin: 07/09/19 20:38 Dose: 650 mg Documented by: Albuterol (Proventil) 2.5 mg IH Q4HRT PRN PRN Reason: Shortness Of Breath Ascorbic Acid (Vitamin C) 1,000 mg PO QDAY [facility] Last Admin: 07/10/19 10:11 Dose: 1,000 mg Documented by: Calcium/Vitamin D (Oysco D 500 Mg-200 Unit) 1 each PO DAILY [facility] Last Admin: 07/10/19 10:11 Dose: 1 each Documented by: Cyanocobalamin (Vitamin B-12) 50 mcg PO QDAY [facility] Last Admin: 07/10/19 10:12 Dose: 50 mcg Documented by: Fluconazole (Diflucan) 100 mg PO QDAY [facility] Hydroxychloroquine Sulfate (Plaquenil) 200 mg PO QDAY [facility] Last Admin: 07/10/19 10:11 Dose: 200 mg Documented by: Sodium Chloride (Nacl 0.9% 1000 Ml) 1,000 mls @ 150 mls/hr IV DIRECT [facility] Last Admin: 07/10/19 10:09 Dose: 100 mls/hr Documented by: Piperacillin Sod/Tazobactam Sod (Zosyn/Ns 2.25 Gm/50ml) 2.25 gm in 50 mls @ 100 mls/hr IV Q8H [facility]; Protocol Last Admin: 07/10/19 12:03 Dose: 100 mls/hr Documented by: Lidocaine HCl (Magic Mouthwash) 15 ml PO TID [facility] Ondansetron HCl (Zofran) 4 mg IV Q8H PRN PRN Reason: Nausea And Vomiting Prednisone (Deltasone) 5 mg PO QDAY [facility] Last Admin: 07/10/19 10:11 Dose: 5 mg Documented by: Sodium Chloride (Sodium Chloride Flush Syringe 10 Ml) 10 ml IV BID [facility] Last Admin: 07/10/19 10:11 Dose: 10 ml Documented by: Sodium Chloride (Sodium Chloride Flush Syringe 10 Ml) 10 ml IV PRN PRN PRN Reason: LINE FLUSH medications reviewed/updated as required Review of Systems - Review of Systems Constitutional: weakness Gastrointestinal: no abdominal pain, no nausea, no vomiting Exam - Constitutional Vital Signs: Temp Pulse Resp BP Pulse Ox 97.7 F 88 10 L 94/50 100 07/10/19 08:00 07/10/19 11:00 07/10/19 11:00 07/10/19 11:00 07/10/19 11:00 General appearance: no acute distress, other (thin/weak/chronically ill appearing) - EENT Eyes: PERRL, EOM intact ENT: hearing intact - Respiratory Respiratory effort: normal - Cardiovascular Rhythm: regular - Gastrointestinal General gastrointestinal: Present: soft, non-tender, non-distended, normal bowel sounds - Neurologic Neurological: alert and oriented x3 - Labs CBC & Chem 7: 07/10/19 05:11 07/10/19 05:11 Lab Results: Laboratory Results - last 24 hr 07/10/19 07/10/19 05:11 05:11 WBC 7.1 RBC 2.53 L Hgb 7.5 L Hct 22.1 L MCV 87 MCH 30 MCHC 34 RDW 15.3 H Plt Count 58 L Lymph % (Auto) 6.4 L Hood % (Auto) 8.4 H Eos % (Auto) 0.8 Baso % (Auto) 0.3 Lymph # 0.5 L Hood # 0.6 Eos # 0.1 Baso # 0.0 Seg Neutrophils % 84.1 H Seg Neutrophils # 6.0 Sodium 143 Potassium 3.3 L D Chloride 115.4 H Carbon Dioxide 16 L Anion Gap 15 BUN 57 H Creatinine 0.7 Estimated GFR > 60 BUN/Creatinine Ratio 81 Glucose 82 Calcium 7.4 L D Assessment and Plan 1.PEG placement -discussed option of PEG placement with patient and family (son at bedside) to include nature of procedure, details of the technique, benefits, purpose, and risks including but limited to perforation, bleeding, infection, and independent risks of anesthesia- patient/family agreeable to proceed with procedure -will schedule for EGD/PEG tomorrow -NPO after MN -INR in am -continue supportive care -electrolyte management per primary team -will follow
--- NOTE | 2019-07-10 12:50 | Progress Note ---
Assessment and Plan urinary retention ? mental status change no palpm masses along urethra rec keep ortiz neuro eval Subjective Date of service: 07/10/19 Principal diagnosis: aur retention Objective - Constitutional Vitals: Vital Signs - 12hr 07/10/19 07/10/19 07/10/19 00:51 01:00 01:11 Temperature Pulse Rate 97 H 99 H 100 H Pulse Rate [ From Monitor] Respiratory 15 21 30 H Rate Blood Pressure 79/40 88/42 92/45 O2 Sat by Pulse 100 100 100 Oximetry 07/10/19 07/10/19 07/10/19 01:21 01:30 01:41 Temperature Pulse Rate 96 H 98 H 102 H Pulse Rate [ From Monitor] Respiratory 13 12 26 H Rate Blood Pressure 88/42 82/43 82/43 O2 Sat by Pulse 100 100 100 Oximetry 07/10/19 07/10/19 07/10/19 01:51 02:00 02:11 Temperature Pulse Rate 98 H 96 H 96 H Pulse Rate [ From Monitor] Respiratory 21 25 H 21 Rate Blood Pressure 85/43 91/47 91/47 O2 Sat by Pulse 100 100 100 Oximetry 07/10/19 07/10/19 07/10/19 02:21 02:30 02:41 Temperature Pulse Rate 96 H 93 H 97 H Pulse Rate [ From Monitor] Respiratory 18 10 L 24 Rate Blood Pressure 85/40 87/44 87/44 O2 Sat by Pulse 100 100 100 Oximetry 07/10/19 07/10/19 07/10/19 02:51 03:00 03:11 Temperature Pulse Rate 98 H 96 H 96 H Pulse Rate [ From Monitor] Respiratory 19 13 11 L Rate Blood Pressure 91/44 88/44 88/44 O2 Sat by Pulse 100 100 99 Oximetry 07/10/19 07/10/19 07/10/19 03:21 03:24 03:30 Temperature Pulse Rate 95 H 100 H 97 H Pulse Rate [ From Monitor] Respiratory 11 L 18 Rate Blood Pressure 90/47 89/46 O2 Sat by Pulse 100 100 Oximetry 07/10/19 07/10/19 07/10/19 03:41 03:51 04:00 Temperature 98.7 F Pulse Rate 100 H 94 H 97 H Pulse Rate [ 100 H From Monitor] Respiratory 11 L 11 L 13 Rate Blood Pressure 89/46 91/48 87/46 O2 Sat by Pulse 100 100 99 Oximetry 07/10/19 07/10/19 07/10/19 04:11 04:21 04:30 Temperature Pulse Rate 99 H 97 H 97 H Pulse Rate [ From Monitor] Respiratory 16 10 L 15 Rate Blood Pressure 87/46 92/46 94/49 O2 Sat by Pulse 100 100 100 Oximetry 07/10/19 07/10/19 07/10/19 04:41 04:51 05:00 Temperature Pulse Rate 98 H 97 H 98 H Pulse Rate [ From Monitor] Respiratory 10 L 10 L 10 L Rate Blood Pressure 94/49 83/46 81/46 O2 Sat by Pulse 99 100 100 Oximetry 07/10/19 07/10/19 07/10/19 05:11 05:21 05:30 Temperature Pulse Rate 102 H 96 H 93 H Pulse Rate [ From Monitor] Respiratory 12 10 L 10 L Rate Blood Pressure 81/46 78/45 87/45 O2 Sat by Pulse 100 100 100 Oximetry 07/10/19 07/10/19 07/10/19 05:41 05:51 06:00 Temperature Pulse Rate 98 H 101 H 95 H Pulse Rate [ From Monitor] Respiratory 11 L 20 25 H Rate Blood Pressure 87/45 91/50 80/44 O2 Sat by Pulse 100 100 100 Oximetry 07/10/19 07/10/19 07/10/19 06:11 06:21 06:30 Temperature Pulse Rate 92 H 87 85 Pulse Rate [ From Monitor] Respiratory 13 25 H 24 Rate Blood Pressure 80/44 95/60 98/58 O2 Sat by Pulse 100 100 100 Oximetry 07/10/19 07/10/19 07/10/19 06:41 06:51 07:00 Temperature Pulse Rate 83 86 83 Pulse Rate [ From Monitor] Respiratory 19 17 22 Rate Blood Pressure 98/58 98/59 101/58 O2 Sat by Pulse 100 100 100 Oximetry 07/10/19 07/10/19 07/10/19 07:11 07:21 07:30 Temperature Pulse Rate 83 82 84 Pulse Rate [ From Monitor] Respiratory 15 9 L 10 L Rate Blood Pressure 101/58 101/58 91/53 O2 Sat by Pulse 100 100 100 Oximetry 07/10/19 07/10/19 07/10/19 07:41 07:51 08:00 Temperature 97.7 F Pulse Rate 90 93 H 89 Pulse Rate [ 89 From Monitor] Respiratory 10 L 12 14 Rate Blood Pressure 91/53 106/62 96/60 O2 Sat by Pulse 100 100 100 Oximetry 07/10/19 07/10/19 07/10/19 08:11 08:21 08:31 Temperature Pulse Rate 86 87 91 H Pulse Rate [ From Monitor] Respiratory 9 L 8 L 12 Rate Blood Pressure 96/60 90/53 90/53 O2 Sat by Pulse 100 100 100 Oximetry 07/10/19 07/10/19 07/10/19 08:41 08:51 09:00 Temperature Pulse Rate 86 89 94 H Pulse Rate [ From Monitor] Respiratory 9 L 10 L 19 Rate Blood Pressure 90/53 90/53 94/54 O2 Sat by Pulse 100 100 100 Oximetry 07/10/19 07/10/19 07/10/19 09:11 09:21 09:31 Temperature Pulse Rate 91 H 92 H 91 H Pulse Rate [ From Monitor] Respiratory 16 10 L 10 L Rate Blood Pressure 94/54 94/54 94/54 O2 Sat by Pulse 100 100 100 Oximetry 07/10/19 07/10/19 07/10/19 09:41 09:51 10:00 Temperature Pulse Rate 94 H 98 H 95 H Pulse Rate [ From Monitor] Respiratory 27 H 15 25 H Rate Blood Pressure 94/54 94/54 96/54 O2 Sat by Pulse 100 100 100 Oximetry 07/10/19 07/10/19 07/10/19 10:11 10:21 10:31 Temperature Pulse Rate 96 H 95 H 98 H Pulse Rate [ From Monitor] Respiratory 21 23 18 Rate Blood Pressure 96/54 96/54 96/54 O2 Sat by Pulse 100 100 100 Oximetry 07/10/19 07/10/19 07/10/19 10:41 10:51 11:00 Temperature Pulse Rate 99 H 89 88 Pulse Rate [ From Monitor] Respiratory 27 H 9 L 10 L Rate Blood Pressure 96/54 96/54 94/50 O2 Sat by Pulse 100 100 100 Oximetry General appearance: Present: disheveled - Neck Neck: supple - Respiratory Respiratory effort: normal Extremities: no ischemia - Gastrointestinal General gastrointestinal: Present: soft, non-tender - Labs CBC & Chem 7: 07/10/19 05:11 07/10/19 05:11 Labs: Abnormal lab results 07/10/19 07/10/19 Range/Units 05:11 05:11 RBC 2.53 L (3.65-5.03) M/mm3 Hgb 7.5 L (10.1-14.3) gm/dl Hct 22.1 L (30.3-42.9) % RDW 15.3 H (13.2-15.2) % Plt Count 58 L (140-440) K/mm3 Lymph % (Auto) 6.4 L (13.4-35.0) % [place] % (Auto) 8.4 H (0.0-7.3) % Lymph # 0.5 L (1.2-5.4) K/mm3 Seg Neutrophils % 84.1 H (40.0-70.0) % Potassium 3.3 L D (3.6-5.0) mmol/L Chloride 115.4 H (98-107) mmol/L Carbon Dioxide 16 L (22-30) mmol/L BUN 57 H (7-17) mg/dL Calcium 7.4 L D (8.4-10.2) mg/dL Medications & Allergies - Medications Allergies/Adverse Reactions: Allergies azithromycin Allergy (Verified 02/07/17 02:21) Swelling aspirin Adverse Reaction (Verified 02/06/17 13:00) Nausea Home Medications: Home Medications Medication Instructions Recorded Confirmed Last Taken Type Potassium Chloride [K-Dur] 20 meq PO QDAY 02/06/17 07/09/19 02/06/17 History Prednisone [predniSONE (Lainey) ER 5 mg PO QDAY 02/06/17 07/09/19 02/06/17 History TAB] oxyCODONE /ACETAMINOPHEN [Percocet 1 tab PO Q12H PRN #10 tablet 02/09/17 07/09/19 Unknown Rx 5/325 mg] Calcium 600-D3 20Mcg(800 Unit) 1 tab PO QDAY 07/09/19 07/09/19 07/07/19 08:00 History Cyanocobalamin (Vitamin B-12) 50 mcg PO QDAY 07/09/19 07/09/19 07/07/19 08:00 History Ferrous Sulfate 65 mg PO QDAY 07/09/19 07/09/19 07/07/19 08:00 History Hydroxychloroquine [Plaquenil] 200 mg PO QDAY 07/09/19 07/09/19 Unknown History Vitamin C 1,000 mg PO QDAY 11/07/09/19 07/07/19 08:00 History Active Medications: Generic Name Dose Route Start Last Admin Trade Name Freq PRN Reason Stop Dose Admin Acetaminophen 650 mg 07/09/19 00:35 07/09/19 20:38 Tylenol PO 650 mg Q4H PRN Administration Pain MILD(1-3)/Fever >100.5/LEIVA Albuterol 2.5 mg 07/09/19 01:08 Proventil IH Q4HRT PRN Shortness Of Breath Ascorbic Acid 1,000 mg 07/10/19 10:00 07/10/19 10:11 Vitamin C PO 1,000 mg QDAY NITESH Administration Calcium/Vitamin D 1 each 07/10/19 10:00 07/10/19 10:11 Oysco D 500 Mg-200 Unit PO 1 each DAILY NITESH Administration Cyanocobalamin 50 mcg 07/10/19 10:00 07/10/19 10:12 Vitamin B-12 PO 50 mcg QDAY NITESH Administration Fluconazole 100 mg 07/10/19 13:00 Diflucan PO QDAY NITESH Hydroxychloroquine Sulfate 200 mg 07/10/19 10:00 07/10/19 10:11 Plaquenil PO 200 mg QDAY NITESH Administration Sodium Chloride 1,000 mls @ 150 mls/hr 07/09/19 01:00 07/10/19 10:09 Nacl 0.9% 1000 Ml IV 100 mls/hr DIRECT NITESH Administration Piperacillin Sod/Tazobactam Sod 2.25 gm in 50 mls @ 100 mls/hr 07/09/19 03:00 07/10/19 12:03 Zosyn/Ns 2.25 Gm/50ml IV 100 mls/hr Q8H NITESH Administration Protocol Lidocaine HCl 15 ml 07/10/19 14:00 Magic Mouthwash PO TID NITESH Ondansetron HCl 4 mg 07/09/19 00:35 Zofran IV Q8H PRN Nausea And Vomiting Prednisone 5 mg 07/10/19 10:00 07/10/19 10:11 Deltasone PO 5 mg QDAY NITESH Administration Sodium Chloride 10 ml 07/09/19 10:00 07/10/19 10:11 Sodium Chloride Flush Syringe 10 Ml IV 10 ml BID NITESH Administration Sodium Chloride 10 ml 07/09/19 00:35 Sodium Chloride Flush Syringe 10 Ml IV PRN PRN LINE FLUSH
--- NOTE | 2019-07-10 15:02 | Consultation ---
HISTORY OF PRESENT ILLNESS: The patient is a woman who apparently was working a month ago and is now somewhat lethargic, somewhat contracted and presented with renal failure. She was in retention. Urological consultation was obtained. She has a catheter draining and it is clear. Apparently, she had some blood in the urine with infection 2 weeks ago. She has a history of arthritis and lupus. PAST MEDICAL HISTORY: As mentioned above. PAST SURGICAL HISTORY: Hysterectomy, appendectomy. SOCIAL HISTORY: Negative. FAMILY HISTORY: Negative. ALLERGIES: AZITHROMYCIN, ASPIRIN. REVIEW OF SYSTEMS: Really not obtainable. PHYSICAL EXAMINATION: GENERAL: She is awake. She is in no distress, but very lethargic. ABDOMEN: Soft, nondistended. PELVIC: There is no discharge, no masses. Pozo is draining clear. IMPRESSION: Urinary retention, change in mental status, multiple autoimmune disorders significant physical deterioration over the last month. Recommend neurological evaluation. Pozo catheter to remain. She can go home with the catheter. We explained this to the family. She needs evaluation for a neurological deficit, followup cystoscopy when she is stable. JOB# [id number] HONEY/SAGE
[2019-07-10] MEDS: FLUCONAZOLE 100 MG TAB PO SCH (17:36)
[2019-07-10] MEDS: MAGIC MOUTHWASH 30ML PO SCH ×2 (17:36→21:57)
[2019-07-11] MEDS: SODIUM CHLORIDE 0.9% 1000 ML 1,000 ML IV SCH ×2 (02:49→10:31)
[2019-07-11] MEDS: PIPERACIL-TAZO 2.25 GM/50 ML 2.25 GM/50 ML BAG IV SCH ×3 (02:52→23:02)
[2019-07-11 04:44] LABS: INR 1.3 (0.87-1.13)
[2019-07-11] MEDS: MAGIC MOUTHWASH 30ML PO SCH ×2 (08:19→16:04)
[2019-07-11] MEDS: ACETAMINOPHEN 325 MG TAB PO PRN (08:23)
[2019-07-11 09:57] LABS: BUN/Creatinine Ratio 73; Blood Urea Nitrogen 29 mg/dL (7-17); Calcium 7.3 mg/dL (8.4-10.2); Hemolysis Index 2
[2019-07-11] MEDS: ASCORBIC ACID 500 MG TAB PO SCH (10:45)
[2019-07-11] MEDS: predniSONE 5 MG TAB PO SCH (10:45)
[2019-07-11] MEDS: HYDROXYCHLOROQUINE 200 MG TAB PO SCH (10:45)
[2019-07-11] MEDS: CYANOCOBALAMIN (VIT B-12) 100 MCG TAB PO SCH (10:46)
[2019-07-11] MEDS: FLUCONAZOLE 100 MG TAB PO SCH (10:47)
[2019-07-11] MEDS: CALCIUM CARBONATE/VITAMIN D3 500 MG-200 UNIT TAB PO SCH (10:47)
[2019-07-11] MEDS ORDERED: ceFAZolin/Water 2 GM/20 ML 2 GM/20 ML SYRINGE IV NR (11:00)
--- NOTE | 2019-07-11 12:25 | Progress Note ---
Assessment and Plan Assessment and plan: 59 year old -Monegasque female with history of rheumatoid arthritis, asthma, lupus, chronic anemia, bilateral sacral pressure ulcers who presents to [facility] ED with complaints of failure to thrive. At the time of my examination patient is resting comfortably in stretcher. She opens eyes spontaneously and is able to answer yes no questions but unable to provide details. --Failure to thrive in an adult; Nutrition supplements,Nutrition consult PEG tube placement and PEG feeds --Hypokalemia: Replenish with Kcl --Urinary retention; Continuous Pozo catheterization Urology evaluation and recommendation noted and appreciated --Hydronephrosis; due to bladder outlet obstruction Urinary retention, continuous Pozo catheterization Check Follow-up renal ultrasound in 1-2 days --Nephrolithiasis Multiple non obstructing renal stones seen Follow-up urology upon discharge --Urinary tract infection; present on admission Empiric antibiotics, follow cultures Supportive care --Severe malnutrition: Nutrition supplements PEG placement recommended by surgery --Hyperkalemia resolved; --Hypokalemia; replenished per protocol Monitor levels --Hypotension; Gentle hydration and closely monitor blood pressures Pressors if needed --History of lupus; continue Plaquenil and steroids, supportive care --Oral thrush; Nystatin swish and swallow Diflucan, supportive care --Sacral decubitus ulcers; present on admission Surgery evaluated the patient, Wound care, surgical debridement if needed --Multiple decubitus ulcers of different stages; See wound care note and images --Thrombocytopenia; Due to lupus, closely monitor --Chronic Anemia Monitor H&H and transfuse as needed --Lactic acidosis; Probably secondary to sepsis, IV antibiotics Follow cultures --Hx Asthma; Oxygen, nebulizers as needed, --DVT prophylaxis;SCDs, No pharmacological anticoagulation in view of thrombocytopenia Physical therapy occupational therapy and rehabilitation Monitor closely and adjust management as needed Plan of care reviewed with the patient and multiple family members at the bedside History Interval history: Patient seen and examined medical records reviewed patient feels slightly better GI evaluation noted and appreciated Planning PEG tube placement Patient is more alert and awake Vital signs noted Hospitalist Physical - Constitutional Vitals: Temp Pulse Resp BP Pulse Ox 98.4 F 109 H 21 85/43 100 07/11/19 04:00 07/11/19 06:00 07/11/19 06:00 07/11/19 06:00 07/11/19 06:00 General appearance: Present: no acute distress, cachectic, disheveled - EENT Eyes: Present: PERRL, EOM intact - Neck Neck: Present: supple, normal ROM - Respiratory Respiratory effort: normal Respiratory: bilateral: diminished, negative: rales, rhonchi, wheezing - Cardiovascular Rhythm: regular Heart Sounds: Present: S1 & S2 - Extremities Extremities: no ischemia, No edema - Abdominal General gastrointestinal: soft, non-tender, non-distended, normal bowel sounds - Integumentary Integumentary: Present: clear, warm - Psychiatric Psychiatric: appropriate mood/affect, cooperative - Neurologic Neurologic: moves all extremities Results - Labs CBC & Chem 7: 07/10/19 05:11 07/11/19 09:25 Labs: Laboratory Last Values WBC 7.1 K/mm3 (4.5-11.0) 07/10/19 05:11 RBC 2.53 M/mm3 (3.65-5.03) L 07/10/19 05:11 Hgb 7.5 gm/dl (10.1-14.3) L 07/10/19 05:11 Hct 22.1 % (30.3-42.9) L 07/10/19 05:11 MCV 87 fl (79-97) 07/10/19 05:11 MCH 30 pg (28-32) 07/10/19 05:11 MCHC 34 % (30-34) 07/10/19 05:11 RDW 15.3 % (13.2-15.2) H 07/10/19 05:11 Plt Count 58 K/mm3 (140-440) L 07/10/19 05:11 Lymph % (Auto) 6.4 % (13.4-35.0) L 07/10/19 05:11 [place] % (Auto) 8.4 % (0.0-7.3) H 07/10/19 05:11 Eos % (Auto) 0.8 % (0.0-4.3) 07/10/19 05:11 Baso % (Auto) 0.3 % (0.0-1.8) 07/10/19 05:11 Lymph # 0.5 K/mm3 (1.2-5.4) L 07/10/19 05:11 [place] # 0.6 K/mm3 (0.0-0.8) 07/10/19 05:11 Eos # 0.1 K/mm3 (0.0-0.4) 07/10/19 05:11 Baso # 0.0 K/mm3 (0.0-0.1) 07/10/19 05:11 Seg Neutrophils % 84.1 % (40.0-70.0) H 07/10/19 05:11 Seg Neutrophils # 6.0 K/mm3 (1.8-7.7) 07/10/19 05:11 PT 16.0 Sec. (12.2-14.9) H 07/11/19 04:07 INR 1.30 (0.87-1.13) H 07/11/19 04:07 Sodium 141 mmol/L (137-145) 07/11/19 09:25 Potassium 3.4 mmol/L (3.6-5.0) L 07/11/19 09:25 Chloride 114.8 mmol/L (98-107) H 07/11/19 09:25 Carbon Dioxide 17 mmol/L (22-30) L 07/11/19 09:25 Anion Gap 13 mmol/L 07/11/19 09:25 BUN 29 mg/dL (7-17) H 07/11/19 09:25 Creatinine 0.4 mg/dL (0.7-1.2) L 07/11/19 09:25 Estimated GFR > 60 ml/min 07/11/19 09:25 BUN/Creatinine Ratio 73 % 07/11/19 09:25 Glucose 86 mg/dL (65-100) 07/11/19 09:25 Lactic Acid 1.00 mmol/L (0.7-2.0) 07/09/19 04:03 Calcium 7.3 mg/dL (8.4-10.2) L 07/11/19 09:25 Phosphorus 1.80 mg/dL (2.5-4.5) L D 07/09/19 04:03 Magnesium 2.50 mg/dL (1.7-2.3) H 07/08/19 21:00 Total Bilirubin 0.30 mg/dL (0.1-1.2) 07/08/19 21:00 AST 18 units/L (5-40) 07/08/19 21:00 ALT 10 units/L (7-56) 07/08/19 21:00 Alkaline Phosphatase 36 units/L (35-129) 07/08/19 21:00 Total Creatine Kinase 59 units/L (30-135) 07/08/19 21:00 NT-Pro-B Natriuret Pep 309.8 pg/mL (0-900) 07/09/19 01:50 Total Protein 6.9 g/dL (6.3-8.2) 07/08/19 21:00 Albumin 2.5 g/dL (3.9-5) L 07/08/19 21:00 Albumin/Globulin Ratio 0.6 % 07/08/19 21:00 Prealbumin 0.132 g/L (0.200-0.400) L 07/09/19 04:03 Urine Color Yellow (Yellow) 07/08/19 20:42 Urine Turbidity Cloudy (Clear) 07/08/19 20:42 Urine pH 6.0 (5.0-7.0) 07/08/19 20:42 Ur Specific [place] 1.013 (1.003-1.030) 07/08/19 20:42 Urine Protein 30 mg/dl mg/dL (Negative) 07/08/19 20:42 Urine Glucose (UA) 50 mg/dL (Negative) 07/08/19 20:42 Urine Ketones Neg mg/dL (Negative) 07/08/19 20:42 Urine Blood Lg (Negative) 07/08/19 20:42 Urine Nitrite Neg (Negative) 07/08/19 20:42 Urine Bilirubin Neg (Negative) 07/08/19 20:42 Urine Urobilinogen < 2.0 mg/dL (<2.0) 07/08/19 20:42 Ur Leukocyte Esterase Lg (Negative) 07/08/19 20:42 Urine WBC (Auto) > 182.0 /HPF (0.0-6.0) H 07/08/19 20:42 Urine RBC (Auto) > 182.0 /HPF (0.0-6.0) 07/08/19 20:42 U Epithel Cells (Auto) 3.0 /HPF (0-13.0) 07/08/19 20:42 Urine WBC Clumps 3+ /HPF 07/08/19 20:42 Blood Type A POSITIVE 07/09/19 04:03 Antibody Screen Negative 07/09/19 04:03 Crossmatch See Detail 07/09/19 04:03 Active Medications - Current Medications Current Medications: Generic Name Dose Route Start Last Admin Trade Name Jodi PRN Reason Stop Dose Admin Acetaminophen 650 mg 07/09/19 00:35 07/11/19 08:23 Tylenol PO 650 mg Q4H PRN Administration Pain MILD(1-3)/Fever >100.5/LEIVA Albuterol 2.5 mg 07/09/19 01:08 Proventil IH Q4HRT PRN Shortness Of Breath Ascorbic Acid 1,000 mg 07/10/19 10:00 07/11/19 10:45 Vitamin C PO 1,000 mg QDAY NITESH Administration Calcium/Vitamin D 1 each 07/10/19 10:00 07/11/19 10:47 Oysco D 500 Mg-200 Unit PO 1 each DAILY NITESH Administration Cyanocobalamin 50 mcg 07/10/19 10:00 07/11/19 10:46 Vitamin B-12 PO 50 mcg QDAY NITESH Administration Fluconazole 100 mg 07/10/19 13:00 07/11/19 10:47 Diflucan PO 100 mg QDAY NITESH Administration Hydroxychloroquine Sulfate 200 mg 07/10/19 10:00 07/11/19 10:45 Plaquenil PO 200 mg QDAY NITESH Administration Piperacillin Sod/Tazobactam Sod 2.25 gm in 50 mls @ 100 mls/hr 07/09/19 03:00 07/11/19 10:35 Zosyn/Ns 2.25 Gm/50ml IV 07/11/19 23:59 100 mls/hr Q8H NITESH Administration Protocol Sodium Chloride 1,000 mls @ 50 mls/hr 07/11/19 11:00 Nacl 0.9% 1000 Ml IV DIRECT NITESH Cefazolin Sodium 2 gm in 20 mls @ 80 mls/hr 07/11/19 11:00 Ancef/Sterile Water 2 Gm/20 Ml IV 07/11/19 20:00 PREOP NR Protocol Lidocaine HCl 15 ml 07/10/19 14:00 07/11/19 08:19 Magic Mouthwash PO 15 ml TID NITESH Administration Ondansetron HCl 4 mg 07/09/19 00:35 Zofran IV Q8H PRN Nausea And Vomiting Prednisone 5 mg 07/10/19 10:00 07/11/19 10:45 Deltasone PO 5 mg QDAY NITESH Administration Sodium Chloride 10 ml 07/09/19 10:00 07/11/19 10:47 Sodium Chloride Flush Syringe 10 Ml IV 10 ml BID NITESH Administration Sodium Chloride 10 ml 07/09/19 00:35 Sodium Chloride Flush Syringe 10 Ml IV PRN PRN LINE FLUSH Nutrition/Malnutrition Assess - Dietary Evaluation Nutrition/Malnutrition Findings: Nutrition Notes Start: 07/09/19 13:14 Freq: Status: Active Protocol: Document 07/11/19 10:10 LM (Rec: 07/11/19 10:30 LM [id number]) Nutrition Notes Initial or Follow up Reassessment Current Diagnosis Acute Kidney Injury,Decubitus( Pressure Ulcer) Other Pertinent Diagnosis Lupus, Nephrolithiasis, hydronephphritis, acute cystitis, multiple PU Current Diet NPO Labs/Tests K 3.3 BUN 57 Pertinent Medications NS at 150ml/hr Height 5 ft 3 in Weight 43.091 kg Roland Body Weight (kg) 52.27 BMI 16.8 Weight Status Underweight Subjective/Other Information Pt NPO. GI recommends PEG. Per chart pt getting PEG placement and EGD today. Pt with multiple wounds, deep tissue injuries. Percent of energy/protein needs met: 0%/0% Burn Absent Trauma Absent Food Allergy No Current % PO Negligible Minimum of two criteria Yes Energy Intake (severe) < or equal to 50% Estimated Energy Requirement > or equal to 5 days Interpretation of Weight Loss (non- 1-2% in 1 week severe) Body Fat Depletion Mild depletion (non-severe) Muscle Mass Mild Depletion (non-severe) #2 Nutrition Diagnosis Increased nutrient needs ( specify in comment below) Comments: protein Etiology wound healing As Evidenced by Signs and Symptoms pt with multiple pressure ulcers #1 Nutrition Diagnosis Malnutrition Diagnosis Progress(for reassessment Continues documentation) Is patient on ventilator? No Is Patient Ambulatory and/or Out of Bed No REE-([facility]-confined to bed) 1169.280 Kcal/Kg value to use for calculation 35 Approximate Energy Requirements Using 1508 kcal/Kg Calculation Used for Recommendations Kcal/kg Additional Notes Protein needs are 52-65g (1.2- 1.5g/kg) Fluid needs are 1ml/kcal Nutrition Intervention Change Diet Order: Recommend TF when medically feasible Nutrition Support: Jevity 1.2 at 55 ml/hr Flush 100 ml q4hr Kcal 1,584 Protein (gm) 73 Fluid (mL) 1,065 Add Supplement/Snack (indicate name/kcal Giancarlo BID when medically /protein ) feasible Provides kCal: 190 Provides Protein (gm) 5 Goal #1 Meet at least 80% of kcal and protein needs via TF Anticipated Discharge Needs: TF Follow-Up By: 07/13/19 Additional Comments F/U for TF consult/POC
--- NOTE | 2019-07-11 13:41 | Anesthesia Consultation ---
Anesthesia Consult and Med Hx Date of service: 07/11/19 - Airway Anesthetic Teeth Evaluation: Poor ROM Head & Neck: Adequate Mental/Hyoid Distance: Adequate - Pulmonary Exam CTA: Yes - Cardiac Exam Cardiac Exam: RRR - Pre-Operative Health Status ASA Pre-Surgery Classification: ASA3 Proposed Anesthetic Plan: MAC - Pre-Anesthesia Comment Pre-Anesthesia Comments: failure to thrive, peg placement. Unable to assess airway/mall - Pulmonary Hx Asthma: Yes - Endocrine Hx Renal Disease: Yes (hydronephrosis, urinary retention, stones ) - Hematic Hx Anemia: Yes (chronic anemia 7.5/22.1) - Additional Comments Anesthesia Medical History Comments: Lupus, rheumatoid arthiritis, cora sacral ulcers
--- NOTE | 2019-07-11 14:16 | Anesthesia Day of Surgery ---
Anesthesia Day of Surgery - Day of Surgery Patient Examined: Yes Patient H&P Reviewed: Yes Patient is NPO: Yes (genoveva at 11am )
[2019-07-11] MEDS ORDERED: ceFAZolin/Water 2 GM/20 ML 0 GM/0 ML SYRINGE IV ONE (15:28)
[2019-07-11] MEDS ORDERED: ETOMIDATE 20 MG/10 ML INJ IV ONE (15:30)
--- NOTE | 2019-07-11 16:04 | Post Operative Note ---
Pre-op diagnosis: dysphagia Post-op diagnosis: same Findings: EGD: hiatal hernia - gastritis - 20F pull peg placed, bumper at 2 cm Procedure: EGD/PEG Anesthesia: MAC Surgeon: SAM CARRILLO Estimated blood loss: none Pathology: list Specimen disposition: to lab Condition: stable Disposition: floor
--- NOTE | 2019-07-11 18:41 | Operative Report ---
PROCEDURE: EGD and PEG tube placement INDICATION: 1. Dysphagia. 2. Failure to thrive. 3. Weight loss. MEDICATIONS: Propofol per AUDIT MGR. COMPLICATIONS: None. DESCRIPTION OF PROCEDURE: The patient was done as a case in Medical Intensive Care Unit. The patient had the procedure discussed with family at length. All risks, complications, and benefits were discussed after which consent was gotten for the procedure performed. The patient was placed in supine position. Mouth block placed in the patient's oral cavity. After adequate sedation, medication as above, endoscope placed in the mouth and brought to level of the second portion of duodenum. Retroflexion view performed. The patient's vital signs remained stable throughout the procedure. FINDINGS: There was a small hiatal hernia at GE junction at 37 cm from the gums. Esophagus otherwise appeared to be normal. Mild gastritis noted in the stomach. Stomach otherwise appeared to be normal. Duodenum appeared to be normal. Retroflexion view performed in the stomach showed no other pathology other than noted above. After this inspection using standard technique and transillumination, area for adequate placement of PEG tube was found. Using standard technique, a 20-Slov[place] pull PEG was then placed. Bump was noted to be at 2 cm. Post-procedure, the patient was satisfactory. The patient tolerated the procedure well. No complications during the procedure. IMPRESSION: 1. Hiatal hernia. 2. Mild gastritis. 3. Otherwise, normal EGD. 4. PEG tube placed without obvious complications. RECOMMENDATIONS: 1. Standard PEG tube orders, see chart. 2. Watch for signs of bleeding or infection. 3. Nutrition consult. 4. We will follow up in a.m. JOB# [id number] [facility]/NTS
--- NOTE | 2019-07-11 19:27 | Consultation ---
History of Present Illness Consult date: 07/11/19 Reason for Consult: Altered mental status Chief complaint: Altered mental status History of present illness: Patient is a 59-year-old woman with a history of rheumatoid arthritis, asthma, lupus, chronic anemia. History was taken from the patient as well as her sister bedside. She reportedly has had a progressive decline in her overall health over the past few months. The patient's mother about 1 year ago, after which her sister states that she is been in a depressed mood.: The past few months, the patient has notably had decreased oral intake, and she attributes this to development of oral thrush. Over the past 2 months, the patient notes that she has been having gradual increase disability, and she states that this is mostly due to increased pain in her joints, as she has had difficulty walking over the past few weeks due to pain in legs. The patient reportedly stopped working the first week of June 2019, she felt that the pain in her legs was too severe to ambulate normally, and that her overall health had declined. On admission, patient was found to have urinary retention, UTI, KAREN, lactic acidosis. Patient was reportedly in altered mental status on admission, and was only answering yes or no answers, however mental status is now improved and patient is back at baseline of mental status per family. Past History Past Medical History: anemia, arthritis, other (asthma, lupus, bilateral sacral pressure ulcers) Past Surgical History: appendectomy, hysterectomy (partial), Other (left leg shoulder) Social history: lives with family, other (bedbound) Family history: no significant family history Medications and Allergies Allergies Allergy/AdvReac Type Severity Reaction Status Date / Time azithromycin Allergy Swelling Verified 02/07/17 02:21 aspirin AdvReac Nausea Verified 02/06/17 13:00 Home Medications Medication Instructions Recorded Confirmed Last Taken Type Potassium Chloride [K-Dur] 20 meq PO QDAY 02/06/17 07/09/19 02/06/17 History Prednisone [predniSONE (Lainey) ER 5 mg PO QDAY 02/06/17 07/09/19 02/06/17 History TAB] oxyCODONE /ACETAMINOPHEN [Percocet 1 tab PO Q12H PRN #10 tablet 02/09/17 07/09/19 Unknown Rx 5/325 mg] Calcium 600-D3 20Mcg(800 Unit) 1 tab PO QDAY 11/07/09/19 07/07/19 08:00 History Cyanocobalamin (Vitamin B-12) 50 mcg PO QDAY 07/09/19 07/09/19 07/07/19 08:00 History Ferrous Sulfate 65 mg PO QDAY 07/09/19 07/09/19 07/07/19 08:00 History Hydroxychloroquine [Plaquenil] 200 mg PO QDAY 07/09/19 07/09/19 Unknown History Vitamin C 1,000 mg PO QDAY 07/09/19 07/09/19 07/07/19 08:00 History Active Meds: Active Medications Acetaminophen (Tylenol) 650 mg PO Q4H PRN PRN Reason: Pain MILD(1-3)/Fever >100.5/LEIVA Last Admin: 07/11/19 08:23 Dose: 650 mg Documented by: Albuterol (Proventil) 2.5 mg IH Q4HRT PRN PRN Reason: Shortness Of Breath Ascorbic Acid (Vitamin C) 1,000 mg PO QDAY [facility] Last Admin: 07/11/19 10:45 Dose: 1,000 mg Documented by: Calcium/Vitamin D ([place] D 500 Mg-200 Unit) 1 each PO DAILY [facility] Last Admin: 07/11/19 10:47 Dose: 1 each Documented by: Cyanocobalamin (Vitamin B-12) 50 mcg PO QDAY [facility] Last Admin: 07/11/19 10:46 Dose: 50 mcg Documented by: Fluconazole (Diflucan) 100 mg PO QDAY [facility] Last Admin: 07/11/19 10:47 Dose: 100 mg Documented by: Hydroxychloroquine Sulfate (Plaquenil) 200 mg PO QDAY [facility] Last Admin: 07/11/19 10:45 Dose: 200 mg Documented by: Piperacillin Sod/Tazobactam Sod (Zosyn/Ns 2.25 Gm/50ml) 2.25 gm in 50 mls @ 100 mls/hr IV Q8H [facility]; Protocol Stop: 07/11/19 23:59 Last Admin: 07/11/19 10:35 Dose: 100 mls/hr Documented by: Sodium Chloride (Nacl 0.9% 1000 Ml) 1,000 mls @ 50 mls/hr IV DIRECT [facility] Cefazolin Sodium (Ancef/Sterile Water 2 Gm/20 Ml) 2 gm in 20 mls @ 80 mls/hr IV PREOP NR; Protocol Stop: 07/11/19 20:00 Lidocaine HCl (Magic Mouthwash) 15 ml PO TID [facility] Last Admin: 07/11/19 16:04 Dose: Not Given Documented by: Ondansetron HCl (Zofran) 4 mg IV Q8H PRN PRN Reason: Nausea And Vomiting Prednisone (Deltasone) 5 mg PO QDAY [facility] Last Admin: 07/11/19 10:45 Dose: 5 mg Documented by: Sodium Chloride (Sodium Chloride Flush Syringe 10 Ml) 10 ml IV BID [facility] Last Admin: 07/11/19 10:47 Dose: 10 ml Documented by: Sodium Chloride (Sodium Chloride Flush Syringe 10 Ml) 10 ml IV PRN PRN PRN Reason: LINE FLUSH Review of Systems All systems: negative Genitourinary Female: other (urinary retention) Musculoskeletal: other (pain in knees) Neurological: change in mentation Physical Examination - Vital Signs Vital Signs: Vital Signs Temp Pulse Resp BP Pulse Ox 97.5 F L 108 H 18 81/47 100 07/08/19 19:36 07/08/19 19:36 07/08/19 19:36 07/08/19 19:36 07/08/19 19:36 - Physical Exam Narrative exam: Patient is alert, awake, oriented x4. Follows complex commands. PERRL, EOMI, VFF, no facial weakness noted, tongue midline, b/l intact to LT. 3/5 strength in b/l UE, 2/5 strength in b/l LE. Noted to have pain-limited weakness in LLE due to knee pain b/l intact to LT. B/l intact to FTN. 2+ reflexes throughout. No dysarthria or aphasia noted. - Constitutional General appearance: uncomfortable - EENT EENT: Present: ATNC, PERRL, mucous membranes moist, hearing intact, vision intact - Respiratory Respiratory: Present: lungs clear, normal breath sounds - Cardiovascular Cardiovascular: Present: regular rate, normal S1, normal S2 Extremities: Present: no clubbing, cyanosis, no inflammation - Gastrointestinal Gastrointestinal: Present: normoactive bowel sounds, soft, non-tender - Integumentary Integumentary: Present: decubitus ulcer - Musculoskeletal Musculoskeletal: Present: pain in joint (right knee) - Psychiatric Psychiatric: Present: mood/affect appropriate Results - Laboratory Findings CBC and BMP: 07/10/19 05:11 07/11/19 09:25 Abnormal Lab Findings: Abnormal Labs 07/08/19 07/08/19 07/08/19 20:42 21:00 21:00 RBC 2.41 L Hgb 7.2 L Hct 21.4 L RDW Plt Count 75 L Lymph % (Auto) 5.4 L [place] % (Auto) 10.0 H Lymph # 0.6 L [place] # 1.0 H Seg Neutrophils % 84.3 H Seg Neutrophils # 8.8 H PT INR Sodium 134 L Potassium 5.6 H Chloride Carbon Dioxide 19 L BUN 123 H Creatinine 1.9 H Glucose 135 H Lactic Acid Calcium Phosphorus Magnesium Albumin 2.5 L Prealbumin Urine WBC (Auto) > 182.0 H Crossmatch 07/08/19 07/08/19 07/09/19 21:00 21:00 04:03 RBC Hgb Hct RDW Plt Count Lymph % (Auto) [place] % (Auto) Lymph # [place] # Seg Neutrophils % Seg Neutrophils # PT INR Sodium Potassium Chloride Carbon Dioxide BUN Creatinine Glucose Lactic Acid 3.20 H* Calcium Phosphorus 2.40 L Magnesium 2.50 H Albumin Prealbumin Urine WBC (Auto) Crossmatch See Detail 07/09/19 07/09/19 07/09/19 04:03 04:03 04:03 RBC Hgb Hct RDW Plt Count Lymph % (Auto) [place] % (Auto) Lymph # [place] # Seg Neutrophils % Seg Neutrophils # PT INR Sodium Potassium Chloride 109.4 H Carbon Dioxide 19 L BUN 102 H Creatinine Glucose Lactic Acid Calcium Phosphorus 1.80 L D Magnesium Albumin Prealbumin 0.132 L Urine WBC (Auto) Crossmatch 07/09/19 07/10/19 07/10/19 05:34 05:11 05:11 RBC 2.30 L 2.53 L Hgb 7.0 L 7.5 L Hct 20.5 L 22.1 L RDW 15.3 H Plt Count 67 L 58 L Lymph % (Auto) 6.1 L 6.4 L [place] % (Auto) 7.9 H 8.4 H Lymph # 0.5 L 0.5 L [place] # Seg Neutrophils % 85.4 H 84.1 H Seg Neutrophils # PT INR Sodium Potassium 3.3 L D Chloride 115.4 H Carbon Dioxide 16 L BUN 57 H Creatinine Glucose Lactic Acid Calcium 7.4 L D Phosphorus Magnesium Albumin Prealbumin Urine WBC (Auto) Crossmatch 07/11/19 07/11/19 04:07 09:25 RBC Hgb Hct RDW Plt Count Lymph % (Auto) [place] % (Auto) Lymph # [place] # Seg Neutrophils % Seg Neutrophils # PT 16.0 H INR 1.30 H Sodium Potassium 3.4 L Chloride 114.8 H Carbon Dioxide 17 L BUN 29 H Creatinine 0.4 L Glucose Lactic Acid Calcium 7.3 L Phosphorus Magnesium Albumin Prealbumin Urine WBC (Auto) Crossmatch Assessment and Plan Patient is a 59-year-old woman with a history of rheumatoid arthritis, asthma, lupus, chronic anemia, who p/w progressive decline in overall health for past 1- 2 months. She was in altered mental status on admission, and was found to have UTI, KAREN, urinary retention, lactic acidosis. According to the patient's clinical findings, it is likely that she has had metabolic encephalopathy, in setting of UTI, KAREN, urinary retention, and lactic acidosis. Mental status has improved now, and is back at baseline per sister. In regards to gradual decline in her health over the past few months, this is likely due to underlying RA and lupus causing gradual disability, as the patient states that she stopped walking due to increase pain in joints. It is less likely that she has a neurodegenerative disorder, given the fact that she has had pain-limited w eakness. Plan: 1. Metabolic encephalopathy: - In setting of underlying UTI, KAREN, urinary retention, lactic acidosis - Resolved, as mental status is now at baseline. - Cont. to treat underlying metabolic/infectious abnormalities per primary team 2. Gradual decline in health: - Likely due to underlying RA and lupus, as well as malnutrition/failure to thrive - Consider psychiatry consult, as sister notes that patient has seemed to be in depressed mood since the of her mother. - Once malnutrition and underlying RA/lupus are appropriately treated, if patient continues to have progression of weakness, would recommend for patient to have EMG/NCS, which can be done as outpatient, and would also recommend re- evaluation by neurology. - Check Vit. D and B12 level. If low, would need to be replaced. Thank you for allowing me to take part in the care of this patient. Daniel Cason MD Neurology
[2019-07-11] MEDS ORDERED: SIMPLE SYRUP 15 ML FEEDTUBE PRN ×2 (19:29)
[2019-07-11] MEDS ORDERED: LIPASE 10,500/PROTEASE 25,000/AMYLASE 43,750 (UNITS) DR CAP FEEDTUBE PRN (19:29)
[2019-07-11] MEDS ORDERED: SODIUM BICARBONATE 325 MG TAB FEEDTUBE PRN (19:29)
[2019-07-12] MEDS: MAGIC MOUTHWASH 30ML PO SCH ×4 (01:07→22:14)
[2019-07-12 05:18] LABS: BUN/Creatinine Ratio 73; Blood Urea Nitrogen 22 mg/dL (7-17); Calcium 7.7 mg/dL (8.4-10.2); Hemolysis Index 4
[2019-07-12] MEDS ORDERED: SODIUM BICARBONATE 325 MG TAB FEEDTUBE PRN ×2 (08:28→08:35)
[2019-07-12] MEDS ORDERED: SIMPLE SYRUP 15 ML FEEDTUBE PRN ×4 (08:28→08:35)
[2019-07-12] MEDS ORDERED: LIPASE 10,500/PROTEASE 25,000/AMYLASE 43,750 (UNITS) DR CAP FEEDTUBE PRN ×2 (08:28→08:35)
[2019-07-12] MEDS: predniSONE 5 MG TAB PO SCH (10:05)
[2019-07-12] MEDS: CALCIUM CARBONATE/VITAMIN D3 500 MG-200 UNIT TAB PO SCH (10:06)
[2019-07-12] MEDS: FLUCONAZOLE 100 MG TAB PO SCH (10:06)
[2019-07-12] MEDS: CYANOCOBALAMIN (VIT B-12) 100 MCG TAB PO SCH (10:06)
[2019-07-12] MEDS: ASCORBIC ACID 500 MG TAB PO SCH (10:07)
[2019-07-12] MEDS: HYDROXYCHLOROQUINE 200 MG TAB PO SCH (10:07)
--- NOTE | 2019-07-12 10:10 | Progress Note ---
Assessment and Plan Assessment and plan: 59 year old -[place] female with history of rheumatoid arthritis, asthma, lupus, chronic anemia, bilateral sacral pressure ulcers who presents to [facility] ED with complaints of failure to thrive. At the time of my examination patient is resting comfortably in stretcher. She opens eyes spontaneously and is able to answer yes no questions but unable to provide details. --Failure to thrive in an adult; s/p PEG tube placement start PEG feeds Mechanical soft diet as tolerated --Hypokalemia: Replenish with Kcl --Urinary retention; Continuous Pozo catheterization Urology evaluation and recommendation noted and appreciated --Hydronephrosis; due to bladder outlet obstruction Urinary retention, continuous Pozo catheterization Check Follow-up renal ultrasound in 1-2 days --Nephrolithiasis Multiple non obstructing renal stones seen Follow-up urology upon discharge --Urinary tract infection; present on admission Empiric antibiotics, follow cultures Supportive care --Severe malnutrition: Nutrition supplements PEG placement recommended by surgery --Hypokalemia; resolved --Hypotension; Gentle hydration and closely monitor blood pressures Pressors if needed --History of lupus; continue Plaquenil and steroids, supportive care --Oral thrush; Nystatin swish and swallow Diflucan, supportive care --Sacral decubitus ulcers; present on admission Surgery evaluated the patient, Wound care, surgical debridement if needed --Multiple decubitus ulcers of different stages; See wound care note and images --Thrombocytopenia; Due to lupus, closely monitor --Chronic Anemia Monitor H&H and transfuse as needed --Lactic acidosis; Probably secondary to sepsis, IV antibiotics Follow cultures --Hx Asthma; Oxygen, nebulizers as needed, --DVT prophylaxis;SCDs, No pharmacological anticoagulation in view of thrombocytopenia Physical therapy occupational therapy and rehabilitation Monitor closely and adjust management as needed Plan of care reviewed with the patient and multiple family members at the bedside critical care time 35 minutes History Interval history: Patient seen and examined , medical records reviewed Patient feels slightly better had PEG tube placed yesterday Patient is also tolerating soft diet Patient is alert and awake responding to simple questions Vital signs reviewed Hospitalist Physical - Constitutional Vitals: Temp Pulse Resp BP Pulse Ox 98.7 F 97 H 12 113/63 99 07/12/19 04:00 07/12/19 06:00 07/12/19 06:00 07/12/19 06:00 07/12/19 04:00 General appearance: Present: no acute distress, cachectic, disheveled - EENT Eyes: Present: PERRL, EOM intact - Neck Neck: Present: supple, normal ROM - Respiratory Respiratory effort: normal Respiratory: bilateral: diminished, negative: rales, rhonchi, wheezing - Cardiovascular Rhythm: regular Heart Sounds: Present: S1 & S2 - Extremities Extremities: no ischemia, abnormal (decubitus ulcers. Wound care) - Abdominal General gastrointestinal: soft, non-tender, non-distended, normal bowel sounds, other (PEG tube in place) - Integumentary Integumentary: Present: clear, warm - Psychiatric Psychiatric: appropriate mood/affect, cooperative - Neurologic Neurologic: CNII-XII intact, moves all extremities Results - Labs CBC & Chem 7: 07/10/19 05:11 07/12/19 04:06 Labs: Laboratory Last Values WBC 7.1 K/mm3 (4.5-11.0) 07/10/19 05:11 RBC 2.53 M/mm3 (3.65-5.03) L 07/10/19 05:11 Hgb 7.5 gm/dl (10.1-14.3) L 07/10/19 05:11 Hct 22.1 % (30.3-42.9) L 07/10/19 05:11 MCV 87 fl (79-97) 07/10/19 05:11 MCH 30 pg (28-32) 07/10/19 05:11 MCHC 34 % (30-34) 07/10/19 05:11 RDW 15.3 % (13.2-15.2) H 07/10/19 05:11 Plt Count 58 K/mm3 (140-440) L 07/10/19 05:11 Lymph % (Auto) 6.4 % (13.4-35.0) L 07/10/19 05:11 [place] % (Auto) 8.4 % (0.0-7.3) H 07/10/19 05:11 Eos % (Auto) 0.8 % (0.0-4.3) 07/10/19 05:11 Baso % (Auto) 0.3 % (0.0-1.8) 07/10/19 05:11 Lymph # 0.5 K/mm3 (1.2-5.4) L 07/10/19 05:11 [place] # 0.6 K/mm3 (0.0-0.8) 07/10/19 05:11 Eos # 0.1 K/mm3 (0.0-0.4) 07/10/19 05:11 Baso # 0.0 K/mm3 (0.0-0.1) 07/10/19 05:11 Seg Neutrophils % 84.1 % (40.0-70.0) H 07/10/19 05:11 Seg Neutrophils # 6.0 K/mm3 (1.8-7.7) 07/10/19 05:11 PT 16.0 Sec. (12.2-14.9) H 07/11/19 04:07 INR 1.30 (0.87-1.13) H 07/11/19 04:07 Sodium 146 mmol/L (137-145) H 07/12/19 04:06 Potassium 3.6 mmol/L (3.6-5.0) 07/12/19 04:06 Chloride 118.2 mmol/L (98-107) H 07/12/19 04:06 Carbon Dioxide 16 mmol/L (22-30) L 07/12/19 04:06 Anion Gap 15 mmol/L 07/12/19 04:06 BUN 22 mg/dL (7-17) H 07/12/19 04:06 Creatinine 0.3 mg/dL (0.7-1.2) L 07/12/19 04:06 Estimated GFR > 60 ml/min 07/12/19 04:06 BUN/Creatinine Ratio 73 % 07/12/19 04:06 Glucose 74 mg/dL (65-100) 07/12/19 04:06 Lactic Acid 1.00 mmol/L (0.7-2.0) 07/09/19 04:03 Calcium 7.7 mg/dL (8.4-10.2) L 07/12/19 04:06 Phosphorus 1.70 mg/dL (2.5-4.5) L 07/12/19 04:06 Magnesium 1.20 mg/dL (1.7-2.3) L 07/12/19 04:06 Total Bilirubin 0.30 mg/dL (0.1-1.2) 07/08/19 21:00 AST 18 units/L (5-40) 07/08/19 21:00 ALT 10 units/L (7-56) 07/08/19 21:00 Alkaline Phosphatase 36 units/L (35-129) 07/08/19 21:00 Total Creatine Kinase 59 units/L (30-135) 07/08/19 21:00 NT-Pro-B Natriuret Pep 309.8 pg/mL (0-900) 07/09/19 01:50 Total Protein 6.9 g/dL (6.3-8.2) 07/08/19 21:00 Albumin 2.5 g/dL (3.9-5) L 07/08/19 21:00 Albumin/Globulin Ratio 0.6 % 07/08/19 21:00 Prealbumin 0.132 g/L (0.200-0.400) L 07/09/19 04:03 Vitamin B12 1511 pg/mL (211-911) H 07/11/19 20:37 Urine Color Yellow (Yellow) 07/08/19 20:42 Urine Turbidity Cloudy (Clear) 07/08/19 20:42 Urine pH 6.0 (5.0-7.0) 07/08/19 20:42 Ur Specific [place] 1.013 (1.003-1.030) 07/08/19 20:42 Urine Protein 30 mg/dl mg/dL (Negative) 07/08/19 20:42 Urine Glucose (UA) 50 mg/dL (Negative) 07/08/19 20:42 Urine Ketones Neg mg/dL (Negative) 07/08/19 20:42 Urine Blood Lg (Negative) 07/08/19 20:42 Urine Nitrite Neg (Negative) 07/08/19 20:42 Urine Bilirubin Neg (Negative) 07/08/19 20:42 Urine Urobilinogen < 2.0 mg/dL (<2.0) 07/08/19 20:42 Ur Leukocyte Esterase Lg (Negative) 07/08/19 20:42 Urine WBC (Auto) > 182.0 /HPF (0.0-6.0) H 07/08/19 20:42 Urine RBC (Auto) > 182.0 /HPF (0.0-6.0) 07/08/19 20:42 U Epithel Cells (Auto) 3.0 /HPF (0-13.0) 07/08/19 20:42 Urine WBC Clumps 3+ /HPF 07/08/19 20:42 Blood Type A POSITIVE 07/09/19 04:03 Antibody Screen Negative 07/09/19 04:03 Crossmatch See Detail 07/09/19 04:03 Active Medications - Current Medications Current Medications: Generic Name Dose Route Start Last Admin Trade Name Freq PRN Reason Stop Dose Admin Acetaminophen 650 mg 07/09/19 00:35 07/11/19 08:23 Tylenol PO 650 mg Q4H PRN Administration Pain MILD(1-3)/Fever >100.5/LEIVA Albuterol 2.5 mg 07/09/19 01:08 Proventil IH Q4HRT PRN Shortness Of Breath Lipase/Protease/Amylase 1 each 07/12/19 08:[address] 10,500 Unit FEEDTUBE PRN PRN For Clogged Feeding Tube Ascorbic Acid 1,000 mg 07/10/19 10:00 07/12/19 10:07 Vitamin C PO 1,000 mg QDAY NITESH Administration Calcium/Vitamin D 1 each 07/10/19 10:00 07/12/19 10:06 Oysco D 500 Mg-200 Unit PO 1 each DAILY NITESH Administration Cyanocobalamin 50 mcg 07/10/19 10:00 07/12/19 10:06 Vitamin B-12 PO 50 mcg QDAY NITESH Administration Fluconazole 100 mg 07/10/19 13:00 07/12/19 10:06 Diflucan PO 100 mg QDAY NITESH Administration Hydroxychloroquine Sulfate 200 mg 07/10/19 10:00 07/12/19 10:07 Plaquenil PO 200 mg QDAY NITESH Administration Sodium Chloride 1,000 mls @ 50 mls/hr 07/11/19 11:00 Nacl 0.9% 1000 Ml IV DIRECT NITESH Lidocaine HCl 15 ml 07/10/19 14:00 07/12/19 08:59 Magic Mouthwash PO 15 ml TID NITESH Administration Ondansetron HCl 4 mg 07/09/19 00:35 Zofran IV Q8H PRN Nausea And Vomiting Prednisone 5 mg 07/10/19 10:00 07/12/19 10:05 Deltasone PO 5 mg QDAY NITESH Administration Simple Syrup 15 ml 07/12/19 08:28 Simple Syrup FEEDTUBE PRN PRN Hypoglycemia Simple Syrup 30 ml 07/12/19 08:28 Simple Syrup FEEDTUBE PRN PRN Hypoglycemia Sodium Bicarbonate 325 mg 07/12/19 08:28 Sodium Bicarbonate FEEDTUBE PRN PRN For Clogged Feeding Tube Sodium Chloride 10 ml 07/09/19 10:00 07/11/19 23:01 Sodium Chloride Flush Syringe 10 Ml IV 10 ml BID NITESH Administration Sodium Chloride 10 ml 07/09/19 00:35 Sodium Chloride Flush Syringe 10 Ml IV PRN PRN LINE FLUSH Nutrition/Malnutrition Assess - Dietary Evaluation Nutrition/Malnutrition Findings: Nutrition Notes Start: 07/09/19 13:14 Freq: Status: Active Protocol: Document 07/12/19 08:23 LM (Rec: 07/12/19 08:28 LM [id number]) Nutrition Notes Initial or Follow up Reassessment Current Diagnosis Acute Kidney Injury,Decubitus( Pressure Ulcer) Other Pertinent Diagnosis Lupus, Nephrolithiasis, hydronephphritis, acute cystitis, multiple PU Current Diet NPO Labs/Tests Na 146 BUN 22 Cr 0.3 Phos 7.7 Mg 1.2 Pertinent Medications Reviewed Height 5 ft 3 in Weight 43.091 kg [place] Body Weight (kg) 52.27 BMI 16.8 Subjective/Other Information Pt post PEG placement. MD consult for TF. Already following pt. Noted hypernatremia. Will adjust flush and add Giancarlo for wound healing. Percent of energy/protein needs met: 0%/0% Burn Absent Trauma Absent Food Allergy No Current % PO Negligible Minimum of two criteria Yes Energy Intake (severe) < or equal to 50% Estimated Energy Requirement > or equal to 5 days Interpretation of Weight Loss (non- 1-2% in 1 week severe) Body Fat Depletion Mild depletion (non-severe) Muscle Mass Mild Depletion (non-severe) #2 Nutrition Diagnosis Increased nutrient needs ( specify in comment below) Diagnosis Progress(for reassessment Continues documentation) #1 Nutrition Diagnosis Malnutrition Diagnosis Progress(for reassessment Continues documentation) Is patient on ventilator? No Is Patient Ambulatory and/or Out of Bed No REE-([place]-confined to bed) 1169.280 Kcal/Kg value to use for calculation 35 Approximate Energy Requirements Using 1508 kcal/Kg Calculation Used for Recommendations Kcal/kg Additional Notes Protein needs are 52-65g (1.2- 1.5g/kg) Fluid needs are 1ml/kcal Nutrition Intervention Change Diet Order: TF Nutrition Support: Jevity 1.2 at 55 ml/hr Flush 200 ml q4hr for hypernatremia Flush 100 ml q4hr once hypernatremia resolves Kcal 1,584 Protein (gm) 73 Fluid (mL) 1,065 Add Supplement/Snack (indicate name/kcal Giancarlo BID /protein ) Provides kCal: 190 Provides Protein (gm) 5 Goal #1 Meet at least 80% of kcal and protein needs via TF Anticipated Discharge Needs: TF with Giancarlo BID Follow-Up By: 07/13/19 Additional Comments F/U for TF tolerance, Na lab, Giancarlo administration
--- NOTE | 2019-07-12 11:02 | Gastroenterology Progress Note ---
Assessment and Plan - Patient Problems (1) Severe protein-calorie malnutrition Current Visit: Yes Status: Acute Plan to address problem: - Severe protein-calorie malnutrition 2nd underlying medical problem. - EGD/PEG 07/11 without obvious complication. - OK to advance diet/supplements through tube; nutrition service consulted. - Will sign off; please call if needed. Subjective Date of service: 07/12/19 Principal diagnosis: Malnutrition Interval history: Discussed new PEG with nursing - no issues with flushing or administration of fluids. No N/V, and pain level minimal. No F/C. Objective - Constitutional Vitals: Temp Pulse Resp BP Pulse Ox 98.7 F 97 H 12 113/63 99 07/12/19 04:00 07/12/19 06:00 07/12/19 06:00 07/12/19 06:00 07/12/19 04:00 General appearance: no acute distress - Respiratory Respiratory effort: normal Respiratory: bilateral: CTA - Cardiovascular Rhythm: regular Heart Sounds: Present: S1 & S2 - Gastrointestinal General gastrointestinal: Present: soft, tender (Minimal), non-distended, other (PEG site C/D/I. PEG bumper loosened from 2cm to 3cm. No leakage of gastric contents noted.) - Labs CBC & Chem 7: 07/10/19 05:11 07/12/19 04:06 Labs: Laboratory Results - last 24 hr 07/11/19 07/12/19 20:37 04:06 Sodium 146 H Potassium 3.6 Chloride 118.2 H Carbon Dioxide 16 L Anion Gap 15 BUN 22 H Creatinine 0.3 L Estimated GFR > 60 BUN/Creatinine Ratio 73 Glucose 74 Calcium 7.7 L Phosphorus 1.70 L Magnesium 1.20 L Vitamin B12 1511 H
--- NOTE | 2019-07-12 14:19 | Progress Note ---
Assessment and Plan Patient is a 59-year-old woman with a history of rheumatoid arthritis, asthma, lupus, chronic anemia, who p/w progressive decline in overall health for past 1- 2 months. She was in altered mental status on admission, and was found to have UTI, KAREN, urinary retention, lactic acidosis. According to the patient's clinical findings, it is likely that she has had metabolic encephalopathy, in setting of UTI, KAREN, urinary retention, and lactic acidosis. Mental status has improved now, and is back at baseline per sister. In regards to gradual decline in her health over the past few months, this is likely due to underlying RA and lupus causing gradual disability, as the patient states that she stopped walking due to increase pain in joints. It is less likely that she has a neurodegenerative disorder, given the fact that she has had pain-limited weakness. Plan: 1. Metabolic encephalopathy: - Resolved, as mental status is now at baseline. - In setting of underlying UTI, KAREN, urinary retention, lactic acidosis - Cont. to treat underlying metabolic/infectious abnormalities per primary team 2. Gradual decline in health: - Likely due to underlying RA and lupus, as well as malnutrition/failure to thrive - Consider psychiatry consult, as sister notes that patient has seemed to be in depressed mood since the of her mother. - Once malnutrition and underlying RA/lupus are appropriately treated, if patient continues to have progression of weakness, would recommend for patient to have EMG/NCS, which can be done as outpatient, and would also recommend re- evaluation by neurology. - Check Vit. D. If low, would need to be replaced. - B12 level: 1511 - Recommend PT/OT - Will sign off. Please call with any questions. Thank you for allowing me to take part in the care of this patient. Daniel Cason MD Neurology Subjective Date of service: 07/12/19 Principal diagnosis: Malnutrition Interval history: No acute events overnight. Objective - Exam Narrative Exam: Patient is alert, awake, oriented x4. Follows complex commands. PERRL, EOMI, VFF, no facial weakness noted, tongue midline, b/l intact to LT. 3/5 strength in b/l UE, 2/5 strength in b/l LE. Noted to have pain-limited weakness in LLE due to knee pain b/l intact to LT. B/l intact to FTN. 2+ reflexes throughout. No dysarthria or aphasia noted. - Vital Sign Vital Signs - 12hr 07/12/19 07/12/19 07/12/19 03:00 04:00 05:00 Temperature 98.7 F Pulse Rate 96 H 95 H 93 H Pulse Rate [ 92 H From Monitor] Respiratory 16 15 11 L Rate Blood Pressure 111/63 111/64 115/67 O2 Sat by Pulse 100 99 Oximetry 07/12/19 07/12/19 07/12/19 06:00 07:00 08:00 Temperature Pulse Rate 97 H 99 H 96 H Pulse Rate [ 91 H From Monitor] Respiratory 12 27 H 21 Rate Blood Pressure 113/63 116/69 113/63 O2 Sat by Pulse 100 Oximetry 07/12/19 07/12/19 07/12/19 09:00 10:00 11:00 Temperature Pulse Rate 98 H 101 H 102 H Pulse Rate [ From Monitor] Respiratory 18 18 26 H Rate Blood Pressure 115/62 120/67 133/78 O2 Sat by Pulse 100 100 100 Oximetry 07/12/19 07/12/19 12:00 13:00 Temperature Pulse Rate 103 H 102 H Pulse Rate [ 102 H From Monitor] Respiratory 17 17 Rate Blood Pressure 121/70 123/68 O2 Sat by Pulse 100 100 Oximetry - General Apperance Constitutional: comfortable - EENT EENT: ATNC, PERRL, mucous membranes moist, hearing intact, vision intact - Respiratory Respiratory: lungs clear, normal breath sounds - Cardiovascular Cardiovascular: regular rate, normal S1, normal S2 Extremities: no clubbing, cyanosis, no inflammation - Gastrointestinal Gastrointestinal: normoactive bowel sounds, soft, non-tender - Integumentary Integumentary: decubitus ulcer - Musculoskeletal Musculoskeletal: pain in joint - Psychiatric Psychiatric: mood/affect appropriate - Laboratory Findings CBC and BMP: 07/10/19 05:11 07/12/19 04:06 Abnormal Lab Findings: Abnormal Labs 07/08/19 07/08/19 07/08/19 20:42 21:00 21:00 RBC 2.41 L Hgb 7.2 L Hct 21.4 L RDW Plt Count 75 L Lymph % (Auto) 5.4 L [place] % (Auto) 10.0 H Lymph # 0.6 L [place] # 1.0 H Seg Neutrophils % 84.3 H Seg Neutrophils # 8.8 H PT INR Sodium 134 L Potassium 5.6 H Chloride Carbon Dioxide 19 L BUN 123 H Creatinine 1.9 H Glucose 135 H Lactic Acid Calcium Phosphorus Magnesium Albumin 2.5 L Prealbumin Vitamin B12 Urine WBC (Auto) > 182.0 H Crossmatch 07/08/19 07/08/19 07/09/19 21:00 21:00 04:03 RBC Hgb Hct RDW Plt Count Lymph % (Auto) [place] % (Auto) Lymph # [place] # Seg Neutrophils % Seg Neutrophils # PT INR Sodium Potassium Chloride Carbon Dioxide BUN Creatinine Glucose Lactic Acid 3.20 H* Calcium Phosphorus 2.40 L Magnesium 2.50 H Albumin Prealbumin Vitamin B12 Urine WBC (Auto) Crossmatch See Detail 07/09/19 07/09/19 07/09/19 04:03 04:03 04:03 RBC Hgb Hct RDW Plt Count Lymph % (Auto) [place] % (Auto) Lymph # [place] # Seg Neutrophils % Seg Neutrophils # PT INR Sodium Potassium Chloride 109.4 H Carbon Dioxide 19 L BUN 102 H Creatinine Glucose Lactic Acid Calcium Phosphorus 1.80 L D Magnesium Albumin Prealbumin 0.132 L Vitamin B12 Urine WBC (Auto) Crossmatch 07/09/19 07/10/19 07/10/19 05:34 05:11 05:11 RBC 2.30 L 2.53 L Hgb 7.0 L 7.5 L Hct 20.5 L 22.1 L RDW 15.3 H Plt Count 67 L 58 L Lymph % (Auto) 6.1 L 6.4 L [place] % (Auto) 7.9 H 8.4 H Lymph # 0.5 L 0.5 L [place] # Seg Neutrophils % 85.4 H 84.1 H Seg Neutrophils # PT INR Sodium Potassium 3.3 L D Chloride 115.4 H Carbon Dioxide 16 L BUN 57 H Creatinine Glucose Lactic Acid Calcium 7.4 L D Phosphorus Magnesium Albumin Prealbumin Vitamin B12 Urine WBC (Auto) Crossmatch 07/11/19 07/11/19 07/11/19 04:07 09:25 20:37 RBC Hgb Hct RDW Plt Count Lymph % (Auto) [place] % (Auto) Lymph # [place] # Seg Neutrophils % Seg Neutrophils # PT 16.0 H INR 1.30 H Sodium Potassium 3.4 L Chloride 114.8 H Carbon Dioxide 17 L BUN 29 H Creatinine 0.4 L Glucose Lactic Acid Calcium 7.3 L Phosphorus Magnesium Albumin Prealbumin Vitamin B12 1511 H Urine WBC (Auto) Crossmatch 07/12/19 04:06 RBC Hgb Hct RDW Plt Count Lymph % (Auto) [place] % (Auto) Lymph # [place] # Seg Neutrophils % Seg Neutrophils # PT INR Sodium 146 H Potassium Chloride 118.2 H Carbon Dioxide 16 L BUN 22 H Creatinine 0.3 L Glucose Lactic Acid Calcium 7.7 L Phosphorus 1.70 L Magnesium 1.20 L Albumin Prealbumin Vitamin B12 Urine WBC (Auto) Crossmatch
[2019-07-13] MEDS: MAGIC MOUTHWASH 30ML PO SCH ×2 (09:00→15:48)
[2019-07-13 09:25] LABS: BUN/Creatinine Ratio 53; Blood Urea Nitrogen 16 mg/dL (7-17); Calcium 7.9 mg/dL (8.4-10.2); Hemolysis Index 1
[2019-07-13] MEDS ORDERED: MAGNESIUM SULFATE 4 GM/100 ML BAG IV ONE (10:00)
[2019-07-13] MEDS ORDERED: POTASSIUM PHOSPHATE 40 MMOL in SODIUM CHLORIDE 0.9% 500 ML 500 ML IV ONE (10:00)
[2019-07-13] MEDS: FLUCONAZOLE 100 MG TAB PO SCH (11:06)
[2019-07-13] MEDS: CYANOCOBALAMIN (VIT B-12) 100 MCG TAB PO SCH (11:06)
[2019-07-13] MEDS: CALCIUM CARBONATE/VITAMIN D3 500 MG-200 UNIT TAB PO SCH (11:06)
[2019-07-13] MEDS: predniSONE 5 MG TAB PO SCH (11:12)
[2019-07-13] MEDS: ASCORBIC ACID 500 MG TAB PO SCH (11:13)
[2019-07-13] MEDS: HYDROXYCHLOROQUINE 200 MG TAB PO SCH (11:13)
[2019-07-13] MEDS ORDERED: SIMPLE SYRUP 15 ML FEEDTUBE PRN ×2 (12:32)
[2019-07-13] MEDS ORDERED: SODIUM BICARBONATE 325 MG TAB FEEDTUBE PRN (12:32)
[2019-07-13] MEDS ORDERED: LIPASE 10,500/PROTEASE 25,000/AMYLASE 43,750 (UNITS) DR CAP FEEDTUBE PRN (12:32)
--- NOTE | 2019-07-13 17:45 | Progress Note ---
Assessment and Plan Assessment and plan: 59 year old -Israeli female with history of rheumatoid arthritis, asthma, lupus, chronic anemia, bilateral sacral pressure ulcers who presents to [facility] ED with complaints of failure to thrive. Patient was evaluated by surgery, advised wound care, surgery recommended PEG placement to improve nut ritional status, received PEG yesterday, started on tube feeding, meanwhile patient is tolerating soft diet Today patient is comfortable, physical therapy consulted --Failure to thrive in an adult; s/p PEG tube placement start PEG feeds Mechanical soft diet as tolerated Nutrition supplements --Hypokalemia: Replenish with Kcl --Urinary retention; Continuous Pozo catheterization Urology evaluation and recommendation noted and appreciated --Hydronephrosis; due to bladder outlet obstruction Urinary retention, continuous Pozo catheterization Check Follow-up renal ultrasound in 1-2 days Urology evaluation noted and appreciated --Nephrolithiasis Multiple non obstructing renal stones seen Follow-up urology upon discharge --Urinary tract infection; present on admission Empiric antibiotics, follow cultures Supportive care --Severe malnutrition: Nutrition supplements PEG placement recommended by surgery --Hypokalemia; resolved --Hypotension; Gentle hydration and closely monitor blood pressures Pressors if needed --History of lupus; continue Plaquenil and steroids, supportive care --Oral thrush; Nystatin swish and swallow Diflucan, supportive care --Sacral decubitus ulcers; present on admission Surgery evaluated the patient, Wound care, surgical debridement if needed --Multiple decubitus ulcers of different stages; See wound care note and images --Thrombocytopenia; Due to lupus, closely monitor --Chronic Anemia Monitor H&H and transfuse as needed --Lactic acidosis; Probably secondary to sepsis, IV antibiotics Follow cultures --Hx Asthma; Oxygen, nebulizers as needed, --DVT prophylaxis;SCDs, No pharmacological anticoagulation in view of thrombocytopenia Physical therapy occupational therapy and rehabilitation Monitor closely and adjust management as needed Discharge planning per case management Patient is stable to be transferred out of [facility] Possible discharge in 1 to 2 days if stable Plan of care reviewed with the patient, family member at the bedside As well as patient's nurse critical care time 31 minutes History Interval history: Patient seen and examined medical records reviewed Patient feels better tolerating soft diet Status post PEG placement, initiate PEG feeds Chronically looking, cachectic Vital signs reviewed Hospitalist Physical - Constitutional Vitals: Temp Pulse Resp BP Pulse Ox 98.8 F 106 H 21 121/76 100 07/13/19 16:00 07/13/19 17:00 07/13/19 17:00 07/13/19 17:00 07/13/19 17:00 General appearance: Present: no acute distress, cachectic, disheveled - EENT Eyes: Present: PERRL, EOM intact - Neck Neck: Present: supple, normal ROM - Respiratory Respiratory effort: normal Respiratory: bilateral: diminished, negative: rales, rhonchi, wheezing - Cardiovascular Rhythm: regular Heart Sounds: Present: S1 & S2 - Extremities Extremities: no ischemia, No edema - Abdominal General gastrointestinal: soft, non-tender, non-distended, normal bowel sounds - Integumentary Integumentary: Present: clear, warm, dry (Multiple decubitus ulcers of different stages) - Psychiatric Psychiatric: appropriate mood/affect, cooperative - Neurologic Neurologic: other (Residual weakness) Results - Labs CBC & Chem 7: 07/10/19 05:11 07/13/19 08:11 Labs: Laboratory Last Values WBC 7.1 K/mm3 (4.5-11.0) 07/10/19 05:11 RBC 2.53 M/mm3 (3.65-5.03) L 07/10/19 05:11 Hgb 7.5 gm/dl (10.1-14.3) L 07/10/19 05:11 Hct 22.1 % (30.3-42.9) L 07/10/19 05:11 MCV 87 fl (79-97) 07/10/19 05:11 MCH 30 pg (28-32) 07/10/19 05:11 MCHC 34 % (30-34) 07/10/19 05:11 RDW 15.3 % (13.2-15.2) H 07/10/19 05:11 Plt Count 58 K/mm3 (140-440) L 07/10/19 05:11 Lymph % (Auto) 6.4 % (13.4-35.0) L 07/10/19 05:11 [place] % (Auto) 8.4 % (0.0-7.3) H 07/10/19 05:11 Eos % (Auto) 0.8 % (0.0-4.3) 07/10/19 05:11 Baso % (Auto) 0.3 % (0.0-1.8) 07/10/19 05:11 Lymph # 0.5 K/mm3 (1.2-5.4) L 07/10/19 05:11 [place] # 0.6 K/mm3 (0.0-0.8) 07/10/19 05:11 Eos # 0.1 K/mm3 (0.0-0.4) 07/10/19 05:11 Baso # 0.0 K/mm3 (0.0-0.1) 07/10/19 05:11 Seg Neutrophils % 84.1 % (40.0-70.0) H 07/10/19 05:11 Seg Neutrophils # 6.0 K/mm3 (1.8-7.7) 07/10/19 05:11 PT 16.0 Sec. (12.2-14.9) H 07/11/19 04:07 INR 1.30 (0.87-1.13) H 07/11/19 04:07 Sodium 141 mmol/L (137-145) 07/13/19 08:11 Potassium 3.4 mmol/L (3.6-5.0) L 07/13/19 08:11 Chloride 112.1 mmol/L (98-107) H 07/13/19 08:11 Carbon Dioxide 17 mmol/L (22-30) L 07/13/19 08:11 Anion Gap 15 mmol/L 07/13/19 08:11 BUN 16 mg/dL (7-17) 07/13/19 08:11 Creatinine 0.3 mg/dL (0.7-1.2) L 07/13/19 08:11 Estimated GFR > 60 ml/min 07/13/19 08:11 BUN/Creatinine Ratio 53 % 07/13/19 08:11 Glucose 144 mg/dL (65-100) H 07/13/19 08:11 Lactic Acid 1.00 mmol/L (0.7-2.0) 07/09/19 04:03 Calcium 7.9 mg/dL (8.4-10.2) L 07/13/19 08:11 Phosphorus 1.70 mg/dL (2.5-4.5) L 07/12/19 04:06 Magnesium 1.20 mg/dL (1.7-2.3) L 07/12/19 04:06 Total Bilirubin 0.30 mg/dL (0.1-1.2) 07/08/19 21:00 AST 18 units/L (5-40) 07/08/19 21:00 ALT 10 units/L (7-56) 07/08/19 21:00 Alkaline Phosphatase 36 units/L (35-129) 07/08/19 21:00 Total Creatine Kinase 59 units/L (30-135) 07/08/19 21:00 NT-Pro-B Natriuret Pep 309.8 pg/mL (0-900) 07/09/19 01:50 Total Protein 6.9 g/dL (6.3-8.2) 07/08/19 21:00 Albumin 2.5 g/dL (3.9-5) L 07/08/19 21:00 Albumin/Globulin Ratio 0.6 % 07/08/19 21:00 Prealbumin 0.132 g/L (0.200-0.400) L 07/09/19 04:03 Vitamin B12 1511 pg/mL (211-911) H 07/11/19 20:37 Urine Color Yellow (Yellow) 07/08/19 20:42 Urine Turbidity Cloudy (Clear) 07/08/19 20:42 Urine pH 6.0 (5.0-7.0) 07/08/19 20:42 Ur Specific [place] 1.013 (1.003-1.030) 07/08/19 20:42 Urine Protein 30 mg/dl mg/dL (Negative) 07/08/19 20:42 Urine Glucose (UA) 50 mg/dL (Negative) 07/08/19 20:42 Urine Ketones Neg mg/dL (Negative) 07/08/19 20:42 Urine Blood Lg (Negative) 07/08/19 20:42 Urine Nitrite Neg (Negative) 07/08/19 20:42 Urine Bilirubin Neg (Negative) 07/08/19 20:42 Urine Urobilinogen < 2.0 mg/dL (<2.0) 07/08/19 20:42 Ur Leukocyte Esterase Lg (Negative) 07/08/19 20:42 Urine WBC (Auto) > 182.0 /HPF (0.0-6.0) H 07/08/19 20:42 Urine RBC (Auto) > 182.0 /HPF (0.0-6.0) 07/08/19 20:42 U Epithel Cells (Auto) 3.0 /HPF (0-13.0) 07/08/19 20:42 Urine WBC Clumps 3+ /HPF 07/08/19 20:42 Blood Type A POSITIVE 07/09/19 04:03 Antibody Screen Negative 07/09/19 04:03 Crossmatch See Detail 07/09/19 04:03 Active Medications - Current Medications Current Medications: Generic Name Dose Route Start Last Admin Trade Name Freq PRN Reason Stop Dose Admin Acetaminophen 650 mg 07/09/19 00:35 07/11/19 08:23 Tylenol PO 650 mg Q4H PRN Administration Pain MILD(1-3)/Fever >100.5/LEIVA Albuterol 2.5 mg 07/09/19 01:08 Proventil IH Q4HRT PRN Shortness Of Breath Lipase/Protease/Amylase 1 each 07/13/19 12:[address] 10,500 Unit FEEDTUBE PRN PRN For Clogged Feeding Tube Ascorbic Acid 1,000 mg 07/10/19 10:00 07/13/19 11:13 Vitamin C PO 1,000 mg QDAY NITESH Administration Calcium/Vitamin D 1 each 07/10/19 10:00 07/13/19 11:06 Oysco D 500 Mg-200 Unit PO 1 each DAILY NITESH Administration Cyanocobalamin 50 mcg 07/10/19 10:00 07/13/19 11:06 Vitamin B-12 PO 50 mcg QDAY NITESH Administration Fluconazole 100 mg 07/10/19 13:00 07/13/19 11:06 Diflucan PO 100 mg QDAY NITESH Administration Hydroxychloroquine Sulfate 200 mg 07/10/19 10:00 07/13/19 11:13 Plaquenil PO 200 mg QDAY NITESH Administration Sodium Chloride 1,000 mls @ 50 mls/hr 07/11/19 11:00 Nacl 0.9% 1000 Ml IV DIRECT NITESH Lidocaine HCl 15 ml 07/10/19 14:00 07/13/19 15:48 Magic Mouthwash PO 15 ml TID NITESH Administration Ondansetron HCl 4 mg 07/09/19 00:35 Zofran IV Q8H PRN Nausea And Vomiting Prednisone 5 mg 07/10/19 10:00 07/13/19 11:12 Deltasone PO 5 mg QDAY NITESH Administration Simple Syrup 15 ml 07/13/19 12:32 Simple Syrup FEEDTUBE PRN PRN Hypoglycemia Simple Syrup 30 ml 07/13/19 12:32 Simple Syrup FEEDTUBE PRN PRN Hypoglycemia Sodium Bicarbonate 325 mg 07/13/19 12:32 Sodium Bicarbonate FEEDTUBE PRN PRN For Clogged Feeding Tube Sodium Chloride 10 ml 07/09/19 10:00 07/13/19 11:07 Sodium Chloride Flush Syringe 10 Ml IV 10 ml BID NITESH Administration Sodium Chloride 10 ml 07/09/19 00:35 Sodium Chloride Flush Syringe 10 Ml IV PRN PRN LINE FLUSH Nutrition/Malnutrition Assess - Dietary Evaluation Nutrition/Malnutrition Findings: Nutrition Notes Start: 07/09/19 13:14 Freq: Status: Active Protocol: Document 07/13/19 12:19 LM (Rec: 07/13/19 12:36 LM [email or web address]) Nutrition Notes Initial or Follow up Reassessment Current Diagnosis Acute Kidney Injury,Decubitus( Pressure Ulcer) Other Pertinent Diagnosis Lupus, Nephrolithiasis, hydronephphritis, acute cystitis, multiple PU Current Diet Jevity 1.2 at 55 ml/hr + [facility] soft Labs/Tests Na 141 K 3.4 Cr 0.3 BG 144 Pertinent Medications Kphos at 83 ml/hr Vit C Calcium/vit D B12 Height 5 ft 3 in Weight 43.091 kg [place] Body Weight (kg) 52.27 BMI 16.8 Subjective/Other Information Observed Jevity running at 35 ml/hr at time of visit. Pt stated ONS is added to TF. Pt' s diet advanced to [facility] soft yesterday. Pt stated she did not get a breakfast tray but feels her appetite is improving a litte bit. Na has corrected. Percent of energy/protein needs met: 100%/99% (TF with 1 ensure and 2 Giancarlo packets) Burn Absent Trauma Absent Food Allergy No Current % PO Negligible Minimum of two criteria Yes Energy Intake (severe) < or equal to 50% Estimated Energy Requirement > or equal to 5 days Interpretation of Weight Loss (non- 1-2% in 1 week severe) Body Fat Depletion Mild depletion (non-severe) Muscle Mass Mild Depletion (non-severe) #2 Nutrition Diagnosis Increased nutrient needs ( specify in comment below) Diagnosis Progress(for reassessment Continues documentation) #1 Nutrition Diagnosis Malnutrition Diagnosis Progress(for reassessment Continues documentation) Is patient on ventilator? No Is Patient Ambulatory and/or Out of Bed No REE-([facility] Je[facility]-confined to bed) 1169.280 Kcal/Kg value to use for calculation 35 Approximate Energy Requirements Using 1508 kcal/Kg Calculation Used for Recommendations Kcal/kg Additional Notes Protein needs are 52-65g (1.2- 1.5g/kg) Fluid needs are 1ml/kcal Nutrition Intervention Change Diet Order: Continue TF Nutrition Support: Jevity 1.2 at 55 ml/hr Flush 100 ml q4hr or per MD Kcal 1,584 Protein (gm) 73 Fluid (mL) 1,065 Add Supplement/Snack (indicate name/kcal Giancarlo BID + Ensure BID /protein ) Provides kCal: 890 Provides Protein (gm) 45 Goal #1 Meet at least 80% of kcal and protein needs via TF/PO/ONS Anticipated Discharge Needs: TF with Giancarlo BID Follow-Up By: 07/16/19 Additional Comments F/U for TF tolerance, PO/ONS intakes, ONS needs
[2019-07-13] MEDS: SODIUM CHLORIDE 0.9% 1000 ML 1,000 ML IV SCH (22:19)
[2019-07-14] MEDS: MAGIC MOUTHWASH 30ML PO SCH ×4 (00:25→21:51)
[2019-07-14] MEDS: ACETAMINOPHEN 325 MG TAB PO PRN (02:25)
[2019-07-14] MEDS: FLUCONAZOLE 100 MG TAB PO SCH (10:00)
[2019-07-14] MEDS: HYDROXYCHLOROQUINE 200 MG TAB PO SCH (10:00)
[2019-07-14] MEDS: CALCIUM CARBONATE/VITAMIN D3 500 MG-200 UNIT TAB PO SCH (10:01)
[2019-07-14] MEDS: ASCORBIC ACID 500 MG TAB PO SCH (10:01)
[2019-07-14] MEDS: predniSONE 5 MG TAB PO SCH (10:01)
[2019-07-14] MEDS: CYANOCOBALAMIN (VIT B-12) 100 MCG TAB PO SCH (10:19)
--- NOTE | 2019-07-14 13:19 | Progress Note ---
Assessment and Plan --Failure to thrive in an adult; s/p PEG tube placement start PEG feeds Mechanical soft diet as tolerated Nutrition supplements --Hypokalemia: Replenish with Kcl --Urinary retention; Continuous Pozo catheterization Urology evaluation and recommendation noted and appreciated --Hydronephrosis; due to bladder outlet obstruction Urinary retention, continuous Pozo catheterization Check Follow-up renal ultrasound in 1-2 days Urology evaluation noted and appreciated --Nephrolithiasis Multiple non obstructing renal stones seen Follow-up urology upon discharge --Urinary tract infection; present on admission Empiric antibiotics, follow cultures Supportive care --Severe malnutrition: Nutrition supplements PEG placement recommended by surgery --Hypokalemia; resolved --Hypotension; Gentle hydration and closely monitor blood pressures Pressors if needed --History of lupus; continue Plaquenil and steroids, supportive care --Oral thrush; Nystatin swish and swallow Diflucan, supportive care --Sacral decubitus ulcers; present on admission Surgery evaluated the patient, Wound care, surgical debridement if needed --Multiple decubitus ulcers of different stages; See wound care note and images --Thrombocytopenia; Due to lupus, closely monitor --Chronic Anemia Monitor H&H and transfuse as needed --Lactic acidosis; Probably secondary to sepsis, IV antibiotics Follow cultures --Hx Asthma; Oxygen, nebulizers as needed, --DVT prophylaxis;SCDs, No pharmacological anticoagulation in view of thrombocytopenia Physical therapy occupational therapy and rehabilitation Monitor closely and adjust management as needed Discharge planning per case management Possible discharge in 1 to 2 days if stable Plan of care reviewed with the patient, family member at the bedside As well as patient's nurse Subjective Date of service: 07/14/19 Principal diagnosis: Malnutrition Interval history: 59 year old -N[place]ian female with history of rheumatoid arthritis, asthma, lupus, chronic anemia, bilateral sacral pressure ulcers who presents to [facility] ED with complaints of failure to thrive. Patient was evaluated by surgery, advised wound care, surgery recommended PEG placement to improve nutritional status, received PEG yesterday, started on tube feeding, meanwhile patient is tolerating soft diet Today patient is comfortable, physical therapy to continue Objective - Constitutional Vitals: Vital Signs - 12hr 07/14/19 07/14/19 02:25 05:25 Temperature 97.8 F Pulse Rate 105 H Respiratory 18 16 Rate Blood Pressure 107/61 O2 Sat by Pulse 99 Oximetry General appearance: Present: no acute distress, cachectic - EENT Eyes: PERRL, EOM intact ENT: hearing intact, clear oral mucosa Ears: bilateral: normal - Neck Neck: supple, normal ROM - Respiratory Respiratory effort: normal Respiratory: bilateral: CTA - Breasts Breasts: normal - Cardiovascular Rhythm: regular Heart Sounds: Present: S1 & S2. Absent: gallop, rub Extremities: pulses intact, No edema, normal color, Full ROM Extremity abnormal: other (Decub ulcers--Sacrum and perineum) - Gastrointestinal General gastrointestinal: Present: soft, non-tender, non-distended, normal bowel sounds - Genitourinary Female genitourinary: normal - Integumentary Integumentary: clear, warm, dry - Musculoskeletal Musculoskeletal: 1, strength equal bilaterally - Neurologic Neurologic: moves all extremities - Psychiatric Psychiatric: memory intact, appropriate mood/affect, intact judgment & insight - Labs CBC & Chem 7: 07/10/19 05:11 07/13/19 08:11
[2019-07-14 15:34] LABS: Bilirubin,Urine NEG (Negative); Blood,Urine NEG (Negative); Color,Urine Yellow (Yellow); Protein,Urine <15 mg/dL mg/dL (Negative); Urobilinogen,Urine < 2.0 mg/dL (<2.0)
[2019-07-14] MEDS: SODIUM CHLORIDE 0.9% 1000 ML 1,000 ML IV SCH (18:07)
[2019-07-15] MEDS: ACETAMINOPHEN 325 MG TAB PO PRN (06:24)
--- NOTE | 2019-07-15 08:56 | XRay Report ---
CHEST 1 VIEW INDICATION / CLINICAL INFORMATION: fever. COMPARISON: Chest radiograph 07/09/2019 FINDINGS: SUPPORT DEVICES: None. HEART / MEDIASTINUM: No significant abnormality. LUNGS / PLEURA: Redemonstration of chronic bilateral reticular opacities. There has been interval dev elopment of airspace opacity in the right lower lobe and medial left lung base. Possible trace left e ffusion. No pneumothorax. ADDITIONAL FINDINGS: Mild scoliotic curvature of the spine. Gastrostomy in place. IMPRESSION: 1. Interval development of bibasilar pulmonary opacities which may reflect pneumonia in the appropria te clinical setting. Signer Name: Ileana Marshall MD Signed: 07/15/2019 8:52 AM Workstation Name: [id number]
[2019-07-15] MEDS: ASCORBIC ACID 500 MG TAB PO SCH (11:03)
[2019-07-15] MEDS: FLUCONAZOLE 100 MG TAB PO SCH (11:03)
[2019-07-15] MEDS: CALCIUM CARBONATE/VITAMIN D3 500 MG-200 UNIT TAB PO SCH (11:03)
[2019-07-15] MEDS: predniSONE 5 MG TAB PO SCH (11:03)
[2019-07-15] MEDS: HYDROXYCHLOROQUINE 200 MG TAB PO SCH (11:03)
[2019-07-15] MEDS: CYANOCOBALAMIN (VIT B-12) 100 MCG TAB PO SCH (11:04)
[2019-07-15 13:45] LABS: Vitamin D, 25-OH, D2 <4 ng/mL
--- NOTE | 2019-07-15 14:40 | Progress Note ---
Assessment and Plan Assessment and plan: --Failure to thrive in an adult; s/p PEG tube placement start PEG feeds Mechanical soft diet as tolerated Nutrition supplements --Hypokalemia: Replenish with Kcl --Urinary retention; Continuous Pozo catheterization Urology evaluation and recommendation noted and appreciated --Hydronephrosis; due to bladder outlet obstruction Urinary retention, continuous Pozo catheterization Check Follow-up renal ultrasound in 1-2 days Urology evaluation noted and appreciated Fever yesterday and this morning Repeat UA neg get blood cultures get CXR --Nephrolithiasis Multiple non obstructing renal stones seen Follow-up urology upon discharge --Urinary tract infection; present on admission Empiric antibiotics, follow cultures Supportive care --Severe malnutrition: Nutrition supplements PEG placement recommended by surgery --Hypokalemia; resolved --Hypotension; Gentle hydration and closely monitor blood pressures Pressors if needed --History of lupus; continue Plaquenil and steroids, supportive care --Oral thrush; Nystatin swish and swallow Diflucan, supportive care --Sacral decubitus ulcers; present on admission Surgery evaluated the patient, Wound care, surgical debridement if needed --Multiple decubitus ulcers of different stages; See wound care note and images --Thrombocytopenia; Due to lupus, closely monitor --Chronic Anemia Monitor H&H and transfuse as needed --Lactic acidosis; Probably secondary to sepsis, IV antibiotics Follow cultures --Hx Asthma; Oxygen, nebulizers as needed, --DVT prophylaxis;SCDs, No pharmacological anticoagulation in view of thrombocytopenia Physical therapy occupational therapy and rehabilitation Monitor closely and adjust management as needed Discharge planning per case management Possible discharge in 1 to 2 days if stable History Interval history: Fever Hospitalist Physical - Physical exam Narrative exam: Gen: Not in acute distress, lying in bed, HEENT: Normocephalic, atraumatic Neck: supple, no JVD Heart: S1 and S2 reg, no murmurs, rubs or gallop Lungs: Clear, no crackles Abd: soft, non tender, non distended, normal BS, PEG tube Ext: Multiple ulcers lower extremities,dressing over lower ext Neuro: Awake, alert, oriented X 3, No focal neurological signs Sacral decub ulcers - Constitutional Vitals: Temp Pulse Resp BP Pulse Ox 98.1 F 106 H 16 127/70 99 07/15/19 12:28 07/15/19 12:28 07/15/19 12:28 07/15/19 12:28 07/15/19 12:28 General appearance: Present: no acute distress, cachectic Results - Labs CBC & Chem 7: 07/15/19 19:50 07/15/19 19:50 Labs: Laboratory Last Values WBC 7.1 K/mm3 (4.5-11.0) 07/10/19 05:11 RBC 2.53 M/mm3 (3.65-5.03) L 07/10/19 05:11 Hgb 7.5 gm/dl (10.1-14.3) L 07/10/19 05:11 Hct 22.1 % (30.3-42.9) L 07/10/19 05:11 MCV 87 fl (79-97) 07/10/19 05:11 MCH 30 pg (28-32) 07/10/19 05:11 MCHC 34 % (30-34) 07/10/19 05:11 RDW 15.3 % (13.2-15.2) H 07/10/19 05:11 Plt Count 58 K/mm3 (140-440) L 07/10/19 05:11 Lymph % (Auto) 6.4 % (13.4-35.0) L 07/10/19 05:11 [place] % (Auto) 8.4 % (0.0-7.3) H 07/10/19 05:11 Eos % (Auto) 0.8 % (0.0-4.3) 07/10/19 05:11 Baso % (Auto) 0.3 % (0.0-1.8) 07/10/19 05:11 Lymph # 0.5 K/mm3 (1.2-5.4) L 07/10/19 05:11 [place] # 0.6 K/mm3 (0.0-0.8) 07/10/19 05:11 Eos # 0.1 K/mm3 (0.0-0.4) 07/10/19 05:11 Baso # 0.0 K/mm3 (0.0-0.1) 07/10/19 05:11 Seg Neutrophils % 84.1 % (40.0-70.0) H 07/10/19 05:11 Seg Neutrophils # 6.0 K/mm3 (1.8-7.7) 07/10/19 05:11 PT 16.0 Sec. (12.2-14.9) H 07/11/19 04:07 INR 1.30 (0.87-1.13) H 07/11/19 04:07 Sodium 141 mmol/L (137-145) 07/13/19 08:11 Potassium 3.4 mmol/L (3.6-5.0) L 07/13/19 08:11 Chloride 112.1 mmol/L (98-107) H 07/13/19 08:11 Carbon Dioxide 17 mmol/L (22-30) L 07/13/19 08:11 Anion Gap 15 mmol/L 07/13/19 08:11 BUN 16 mg/dL (7-17) 07/13/19 08:11 Creatinine 0.3 mg/dL (0.7-1.2) L 07/13/19 08:11 Estimated GFR > 60 ml/min 07/13/19 08:11 BUN/Creatinine Ratio 53 % 07/13/19 08:11 Glucose 144 mg/dL (65-100) H 07/13/19 08:11 Lactic Acid 1.00 mmol/L (0.7-2.0) 07/09/19 04:03 Calcium 7.9 mg/dL (8.4-10.2) L 07/13/19 08:11 Phosphorus 1.70 mg/dL (2.5-4.5) L 07/12/19 04:06 Magnesium 1.20 mg/dL (1.7-2.3) L 07/12/19 04:06 Total Bilirubin 0.30 mg/dL (0.1-1.2) 07/08/19 21:00 AST 18 units/L (5-40) 07/08/19 21:00 ALT 10 units/L (7-56) 07/08/19 21:00 Alkaline Phosphatase 36 units/L (35-129) 07/08/19 21:00 Total Creatine Kinase 59 units/L (30-135) 07/08/19 21:00 NT-Pro-B Natriuret Pep 309.8 pg/mL (0-900) 07/09/19 01:50 Total Protein 6.9 g/dL (6.3-8.2) 07/08/19 21:00 Albumin 2.5 g/dL (3.9-5) L 07/08/19 21:00 Albumin/Globulin Ratio 0.6 % 07/08/19 21:00 Prealbumin 0.132 g/L (0.200-0.400) L 07/09/19 04:03 Vitamin B12 1511 pg/mL (211-911) H 07/11/19 20:37 25-Hydroxy Vitamin D2 <4 ng/mL 07/11/19 20:37 1,25 Dihydroxy Vit D2 <8 pg/mL 07/11/19 20:37 25-Hydroxy Vitamin D3 13 ng/mL 07/11/19 20:37 1,25 Dihydroxy Vit D3 23 pg/mL 07/11/19 20:37 Urine Color Yellow (Yellow) 07/14/19 15:09 Urine Turbidity Clear (Clear) 07/14/19 15:09 Urine pH 6.0 (5.0-7.0) 07/14/19 15:09 Ur Specific [place] 1.012 (1.003-1.030) 07/14/19 15:09 Urine Protein <15 mg/dl mg/dL (Negative) 07/14/19 15:09 Urine Glucose (UA) Neg mg/dL (Negative) 07/14/19 15:09 Urine Ketones Neg mg/dL (Negative) 07/14/19 15:09 Urine Blood Neg (Negative) 07/14/19 15:09 Urine Nitrite Neg (Negative) 07/14/19 15:09 Urine Bilirubin Neg (Negative) 07/14/19 15:09 Urine Urobilinogen < 2.0 mg/dL (<2.0) 07/14/19 15:09 Ur Leukocyte Esterase Lg (Negative) 07/14/19 15:09 Urine WBC (Auto) 2.0 /HPF (0.0-6.0) 07/14/19 15:09 Urine RBC (Auto) 2.0 /HPF (0.0-6.0) 07/14/19 15:09 U Epithel Cells (Auto) 3.0 /HPF (0-13.0) 07/08/19 20:42 Urine WBC Clumps 3+ /HPF 07/08/19 20:42 Blood Type A POSITIVE 07/09/19 04:03 Antibody Screen Negative 07/09/19 04:03 Crossmatch See Detail 07/09/19 04:03 Active Medications - Current Medications Current Medications: Generic Name Dose Route Start Last Admin Trade Name Freq PRN Reason Stop Dose Admin Acetaminophen 650 mg 07/09/19 00:35 07/15/19 06:24 Tylenol PO 650 mg Q4H PRN Administration Pain MILD(1-3)/Fever >100.5/LEIVA Albuterol 2.5 mg 07/09/19 01:08 Proventil IH Q4HRT PRN Shortness Of Breath Lipase/Protease/Amylase 1 each 07/13/19 12:[address] 10,500 Unit FEEDTUBE PRN PRN For Clogged Feeding Tube Ascorbic Acid 1,000 mg 07/10/19 10:00 07/15/19 11:03 Vitamin C PO 1,000 mg QDAY NITESH Administration Calcium/Vitamin D 1 each 07/10/19 10:00 07/15/19 11:03 Oysco D 500 Mg-200 Unit PO 1 each DAILY NITESH Administration Cyanocobalamin 50 mcg 07/10/19 10:00 07/15/19 11:04 Vitamin B-12 PO 50 mcg QDAY NITESH Administration Fluconazole 100 mg 07/10/19 13:00 07/15/19 11:03 Diflucan PO 100 mg QDAY NITESH Administration Hydroxychloroquine Sulfate 200 mg 07/10/19 10:00 07/15/19 11:03 Plaquenil PO 200 mg QDAY NITESH Administration Sodium Chloride 1,000 mls @ 50 mls/hr 07/11/19 11:00 07/14/19 18:07 Nacl 0.9% 1000 Ml IV 50 mls/hr DIRECT NITESH Administration Lidocaine HCl 15 ml 07/10/19 14:00 07/14/19 21:51 Magic Mouthwash PO 15 ml TID NITESH Administration Ondansetron HCl 4 mg 07/09/19 00:35 Zofran IV Q8H PRN Nausea And Vomiting Prednisone 5 mg 07/10/19 10:00 07/15/19 11:03 Deltasone PO 5 mg QDAY NITESH Administration Simple Syrup 15 ml 07/13/19 12:32 Simple Syrup FEEDTUBE PRN PRN Hypoglycemia Simple Syrup 30 ml 07/13/19 12:32 Simple Syrup FEEDTUBE PRN PRN Hypoglycemia Sodium Bicarbonate 325 mg 07/13/19 12:32 Sodium Bicarbonate FEEDTUBE PRN PRN For Clogged Feeding Tube Sodium Chloride 10 ml 07/09/19 10:00 07/15/19 11:04 Sodium Chloride Flush Syringe 10 Ml IV 10 ml BID NITESH Administration Sodium Chloride 10 ml 07/09/19 00:35 Sodium Chloride Flush Syringe 10 Ml IV PRN PRN LINE FLUSH Nutrition/Malnutrition Assess - Dietary Evaluation Nutrition/Malnutrition Findings: Nutrition Notes Start: 07/09/19 13:14 Freq: Status: Active Protocol: Document 07/13/19 12:19 LM (Rec: 07/13/19 12:36 LM [id number]) Nutrition Notes Initial or Follow up Reassessment Current Diagnosis Acute Kidney Injury,Decubitus( Pressure Ulcer) Other Pertinent Diagnosis Lupus, Nephrolithiasis, hydronephphritis, acute cystitis, multiple PU Current Diet Jevity 1.2 at 55 ml/hr + mech soft Labs/Tests Na 141 K 3.4 Cr 0.3 BG 144 Pertinent Medications Kphos at 83 ml/hr Vit C Calcium/vit D B12 Height 5 ft 3 in Weight 43.091 kg [place] Body Weight (kg) 52.27 BMI 16.8 Subjective/Other Information Observed Jevity running at 35 ml/hr at time of visit. Pt stated ONS is added to TF. Pt' s diet advanced to mech soft yesterday. Pt stated she did not get a breakfast tray but feels her appetite is improving a litte bit. Na has corrected. Percent of energy/protein needs met: 100%/99% (TF with 1 ensure and 2 Giancarlo packets) Burn Absent Trauma Absent Food Allergy No Current % PO Negligible Minimum of two criteria Yes Energy Intake (severe) < or equal to 50% Estimated Energy Requirement > or equal to 5 days Interpretation of Weight Loss (non- 1-2% in 1 week severe) Body Fat Depletion Mild depletion (non-severe) Muscle Mass Mild Depletion (non-severe) #2 Nutrition Diagnosis Increased nutrient needs ( specify in comment below) Diagnosis Progress(for reassessment Continues documentation) #1 Nutrition Diagnosis Malnutrition Diagnosis Progress(for reassessment Continues documentation) Is patient on ventilator? No Is Patient Ambulatory and/or Out of Bed No REE-([facility]-confined to bed) 1169.280 Kcal/Kg value to use for calculation 35 Approximate Energy Requirements Using 1508 kcal/Kg Calculation Used for Recommendations Kcal/kg Additional Notes Protein needs are 52-65g (1.2- 1.5g/kg) Fluid needs are 1ml/kcal Nutrition Intervention Change Diet Order: Continue TF Nutrition Support: Jevity 1.2 at 55 ml/hr Flush 100 ml q4hr or per MD Kcal 1,584 Protein (gm) 73 Fluid (mL) 1,065 Add Supplement/Snack (indicate name/kcal Giancarlo BID + Ensure BID /protein ) Provides kCal: 890 Provides Protein (gm) 45 Goal #1 Meet at least 80% of kcal and protein needs via TF/PO/ONS Anticipated Discharge Needs: TF with Giancarlo BID Follow-Up By: 07/16/19 Additional Comments F/U for TF tolerance, PO/ONS intakes, ONS needs
[2019-07-15] MEDS: MAGIC MOUTHWASH 30ML PO SCH ×3 (16:59→22:26)
[2019-07-15 20:03] LABS: Basophils % (Auto) 0.7 % (0.0-1.8); Eosinophils % (Auto) 0.3 % (0.0-4.3); Hematocrit 20.7 % (30.3-42.9); Hemoglobin 6.9 gm/dl (10.1-14.3); Lymphocytes # (Auto) 0.8 K/mm3 (1.2-5.4); Lymphocytes % (Auto) 15.9 % (13.4-35.0); Mean Corpuscular HGB Conc 34 % (30-34); Mean Corpuscular Volume 87 fl (79-97); Monocytes # (Auto) 0.3 K/mm3 (0.0-0.8); Monocytes % (Auto) 5.3 % (0.0-7.3); Red Blood Count 2.39 M/mm3 (3.65-5.03); Red Cell Distribution Width 16.2 % (13.2-15.2)
[2019-07-15 20:05] LABS: Platelet Count 59 K/mm3 (140-440)
[2019-07-15 20:26] LABS: Alanine Aminotransferase 18 units/L (7-56); Albumin 1.6 g/dL (3.9-5); BUN/Creatinine Ratio 115; Blood Urea Nitrogen 23 mg/dL (7-17); Calcium 7.7 mg/dL (8.4-10.2); Hemolysis Index 12
[2019-07-16] MEDS: ACETAMINOPHEN 325 MG TAB PO PRN ×2 (04:35→19:42)
[2019-07-16 09:16] LABS: Hematocrit 20.8 % (30.3-42.9); Hemoglobin 6.9 gm/dl (10.1-14.3); Mean Corpuscular HGB Conc 33 % (30-34); Mean Corpuscular Volume 88 fl (79-97); Red Blood Count 2.38 M/mm3 (3.65-5.03); Red Cell Distribution Width 16.1 % (13.2-15.2)
[2019-07-16 09:17] LABS: Platelet Count 59 K/mm3 (140-440)
[2019-07-16] MEDS: MAGIC MOUTHWASH 30ML PO SCH ×3 (09:17→21:25)
[2019-07-16] MEDS: FLUCONAZOLE 100 MG TAB PO SCH (09:22)
[2019-07-16] MEDS: HYDROXYCHLOROQUINE 200 MG TAB PO SCH (09:22)
[2019-07-16] MEDS: ASCORBIC ACID 500 MG TAB PO SCH (09:22)
[2019-07-16] MEDS: CALCIUM CARBONATE/VITAMIN D3 500 MG-200 UNIT TAB PO SCH (09:22)
[2019-07-16] MEDS: predniSONE 5 MG TAB PO SCH (09:22)
[2019-07-16] MEDS ORDERED: SODIUM CHLORIDE 0.9% 500 ML 500 ML IV NR (09:30)
[2019-07-16 09:40] LABS: BUN/Creatinine Ratio 100; Blood Urea Nitrogen 20 mg/dL (7-17); Calcium 7.9 mg/dL (8.4-10.2); Hemolysis Index 30
[2019-07-16] MEDS: SODIUM CHLORIDE 0.9% 1000 ML 1,000 ML IV SCH (09:52)
--- NOTE | 2019-07-16 13:20 | Consultation ---
History of Present Illness - Reason for Consult Consult date: 07/16/19 Fever, Pneumonia on CXR Requesting physician: MECCA JACOBS - History of Present Illness The patient is a 59-year-old female with rheumatoid arthritis on chronic steroids, asthma, lupus, bilateral decubitus ulcers, apparently hasn't walked for the last couple of weeks and has been declining was admitted to the hospital on 07/09/2019 with complaints of failure to thrive and poor oral intake. She was noted to have a sacral decubitus ulcer, CT scan showed findings concerning for severe bladder outlet obstruction with hydronephrosis. Had a Pozo placed in the ER. Initial UA was concerning for possible urinary tract infection. She was empirically started on antibiotics. Due to severe malnutrition, she was seen by GI and underwent a PEG tube placement on 07/11/2019. Patient had a temp erature of 100.4F on 07/14/2019 and 101.3F on 06/15/2019. She was started empirically on levofloxacin and infectious diseases was consulted. Currently has no complaints, she feels weak but otherwise denies nausea, vomiting. Is tolerating tube feeds. Has an indwelling Pozo catheter. Creatinine much improved now. Review of Systems: General: fever yesterday, none today HEENT: no new visual disturbance Respiratory: No cough, sputum, hemoptysis or shortness of breath Cardiovascular: No chest pain, syncope Gastrointestinal: No nausea, vomiting or diarrhea Genitourinary: No dysuria or hematuria Musculoskeletal: No new or worsening neck pain or back pain Neurologic: No headaches, seizures Hematologic: No easy bruising or bleeding Endocrine: No night sweats or acute weight loss Skin: negative for rash, jaundice Psychiatric: No suicidal or homicidal ideation Past History Past Medical History: anemia, arthritis, other (asthma, lupus, bilateral sacral pressure ulcers) Past Surgical History: appendectomy, hysterectomy (partial), Other (left leg shoulder) Social history: lives with family, other (bedbound) Family history: no significant family history Medications and Allergies Allergies Allergy/AdvReac Type Severity Reaction Status Date / Time azithromycin Allergy Swelling Verified 02/07/17 02:21 aspirin AdvReac Nausea Verified 02/06/17 13:00 Home Medications Medication Instructions Recorded Confirmed Last Taken Type Potassium Chloride [K-Dur] 20 meq PO QDAY 02/06/17 07/09/19 02/06/17 History Prednisone [predniSONE ([place]ainey) ER 5 mg PO QDAY 02/06/17 07/09/19 02/06/17 History TAB] oxyCODONE /ACETAMINOPHEN [Percocet 1 tab PO Q12H PRN #10 tablet 02/09/17 07/09/19 Unknown Rx 5/325 mg] Calcium 600-D3 20Mcg(800 Unit) 1 tab PO QDAY 07/09/19 07/09/19 07/07/19 08:00 History Cyanocobalamin (Vitamin B-12) 50 mcg PO QDAY 07/09/19 07/09/19 07/07/19 08:00 History Ferrous Sulfate 65 mg PO QDAY 07/09/19 07/09/19 07/07/19 08:00 History Hydroxychloroquine [Plaquenil] 200 mg PO QDAY 07/09/19 07/09/19 Unknown History Vitamin C 1,000 mg PO QDAY 07/09/19 07/09/19 07/07/19 08:00 History Active Meds: Active Medications Acetaminophen (Tylenol) 650 mg PO Q4H PRN PRN Reason: Pain MILD(1-3)/Fever >100.5/LEIVA Last Admin: 07/16/19 04:35 Dose: 650 mg Documented by: Albuterol (Proventil) 2.5 mg IH Q4HRT PRN PRN Reason: Shortness Of Breath Lipase/Protease/Amylase (Pancreaze Dr 10,500 Unit) 1 each FEEDTUBE PRN PRN PRN Reason: For Clogged Feeding Tube Ascorbic Acid (Vitamin C) 1,000 mg PO QDAY [facility] Last Admin: 07/16/19 09:22 Dose: 1,000 mg Documented by: Calcium/Vitamin D (Oysco D 500 Mg-200 Unit) 1 each PO DAILY [facility] Last Admin: 07/16/19 09:22 Dose: 1 each Documented by: Cyanocobalamin (Vitamin B-12) 50 mcg PO QDAY [facility] Last Admin: 07/15/19 11:04 Dose: 50 mcg Documented by: Fluconazole (Diflucan) 100 mg PO QDAY [facility] Last Admin: 07/16/19 09:22 Dose: 100 mg Documented by: Hydroxychloroquine Sulfate (Plaquenil) 200 mg PO QDAY [facility] Last Admin: 07/16/19 09:22 Dose: 200 mg Documented by: Sodium Chloride (Nacl 0.9% 1000 Ml) 1,000 mls @ 50 mls/hr IV DIRECT [facility] Last Admin: 07/16/19 09:52 Dose: 50 mls/hr Documented by: Levofloxacin/Dextrose (Levaquin 750mg/150ml) 750 mg in 150 mls @ 100 mls/hr IV Q24H [facility]; Protocol Last Admin: 07/15/19 22:18 Dose: 100 mls/hr Documented by: Sodium Chloride (Nacl 0.9% 500 Ml) 500 mls @ 0 mls/hr IV ONCE NR Stop: 07/16/19 17:00 Lidocaine HCl (Magic Mouthwash) 15 ml PO TID [facility] Last Admin: 07/16/19 09:17 Dose: 15 ml Documented by: Ondansetron HCl (Zofran) 4 mg IV Q8H PRN PRN Reason: Nausea And Vomiting Prednisone (Deltasone) 5 mg PO QDAY [facility] Last Admin: 07/16/19 09:22 Dose: 5 mg Documented by: Simple Syrup (Simple Syrup) 15 ml FEEDTUBE PRN PRN PRN Reason: Hypoglycemia Simple Syrup (Simple Syrup) 30 ml FEEDTUBE PRN PRN PRN Reason: Hypoglycemia Sodium Bicarbonate (Sodium Bicarbonate) 325 mg FEEDTUBE PRN PRN PRN Reason: For Clogged Feeding Tube Sodium Chloride (Sodium Chloride Flush Syringe 10 Ml) 10 ml IV BID [facility] Last Admin: 07/16/19 09:39 Dose: 10 ml Documented by: Sodium Chloride (Sodium Chloride Flush Syringe 10 Ml) 10 ml IV PRN PRN PRN Reason: LINE FLUSH Physical Examination - Physical Exam Narrative exam: Physical Exam: Constitutional: Alert, cooperative. No acute distress. Cachexia Head, Ears, Nose: Normocephalic, atraumatic. External ears, nose normal Eyes: Conjunctivae/corneas clear. No icterus. No ptosis. Neck: Supple, no meningeal signs Oral: dentition poor, no thrush Cardiovascular: S1, S2 normal. Respiratory: Good air entry, clear to auscultation bilaterally GI: Soft, non-tender; bowel sounds normal. No peritoneal signs. G tube Musculoskeletal: No pedal edema, no cyanosis. Skin: No rash or abscess. Sacral decubitus Hem/Lymphatic: No palpable cervical or supraclavicular nodes. No lymphangitis Psych: Mood ok. Affect normal Neurological: Awake, alert, oriented. - Constitutional Vitals: Vital Signs Temp Pulse Resp BP Pulse Ox 98.9 F 109 H 18 108/61 100 07/16/19 12:21 07/16/19 12:21 07/16/19 12:21 07/16/19 12:21 07/16/19 12:21 Temperature -Last 24 Hours Temperature 98.9 F Temperature 97.1 F Temperature 99.5 F Temperature 98.6 F Results - Labs CBC & Chem 7: 07/16/19 08:34 07/16/19 08:34 Labs: Abnormal lab results 07/15/19 07/15/19 07/16/19 Range/Units 19:50 19:50 08:34 RBC 2.39 L 2.38 L (3.65-5.03) M/mm3 Hgb 6.9 L 6.9 L (10.1-14.3) gm/dl Hct 20.7 L 20.8 L (30.3-42.9) % RDW 16.2 H 16.1 H (13.2-15.2) % Plt Count 59 L 59 L (140-440) K/mm3 Lymph # 0.8 L (1.2-5.4) K/mm3 Seg Neutrophils % 77.8 H (40.0-70.0) % Chloride 108.9 H (98-107) mmol/L Carbon Dioxide 20 L (22-30) mmol/L BUN 23 H (7-17) mg/dL Creatinine 0.2 L (0.7-1.2) mg/dL Glucose 143 H (65-100) mg/dL Calcium 7.7 L (8.4-10.2) mg/dL Total Protein 5.3 L (6.3-8.2) g/dL Albumin 1.6 L (3.9-5) g/dL Crossmatch 07/16/19 07/16/19 Range/Units 08:34 10:10 RBC (3.65-5.03) M/mm3 Hgb (10.1-14.3) gm/dl Hct (30.3-42.9) % RDW (13.2-15.2) % Plt Count (140-440) K/mm3 Lymph # (1.2-5.4) K/mm3 Seg Neutrophils % (40.0-70.0) % Chloride 109.5 H (98-107) mmol/L Carbon Dioxide 19 L (22-30) mmol/L BUN 20 H (7-17) mg/dL Creatinine 0.2 L (0.7-1.2) mg/dL Glucose 112 H (65-100) mg/dL Calcium 7.9 L (8.4-10.2) mg/dL Total Protein (6.3-8.2) g/dL Albumin (3.9-5) g/dL Crossmatch See Detail - Imaging and Cardiology Chest x-ray: report reviewed, image reviewed (minimal bibasilar opacities, ?atelectasis, not concerning for pneumonia) Assessment and Plan Cultures: 07/08/2019 urine culture: No growth 07/08/2019 blood culture: No growth 07/15/2019 blood culture: No growth in 24 hours A/P: 59-year-old female with rheumatoid arthritis on chronic steroids, asthma, lupus, bilateral decubitus ulcers, apparently hasn't walked for the last couple of weeks and has been declining was admitted to the hospital on 07/09/2019 with complaints of failure to thrive and poor oral intake. Now with: #Fever, unclear etiology: Ration of pneumonia was raised based on chest x-ray however upon my review, I see minimal bilateral lower lobe opacities that may be more atelectasis. Patient has no leukocytosis, has no respiratory distress. UA was without any significant pyuria. Blood cultures are in process. Patient clinically stable. He has a sacral decubitus but does not appear to be infected. Continue wound care. #Urinary tract infection, acute kidney injury, bladder outlet obstruction: Status post antibiotics and indwelling Pozo catheter now. #Sacral decubitus but does not appear to be infected. Continue wound care. #Malnutrition: s/p PEG tube and tube feeds. #RA: on chronic low lose steroids. Immunocompromised host. #Pancytopenia Recs: no new source of infection identified at this time procalcitonin ordered continue levofloxacin day 2 follow up cultures and fever curve Jena Espinosa MD, FACP [facility] ([facility] C: [phone] O: [phone] F: [phone]
--- NOTE | 2019-07-16 14:58 | Progress Note ---
Assessment and Plan /-acute on Chronic Anemia - no active bleeding Monitor H&H and transfuse one unit today could be GI source - stool was positive for occult blood, will get GI opinion /Failure to thrive in an adult; s/p PEG tube placement, started PEG feeds cont Mechanical soft diet as tolerated and Nutrition supplements /-Hypokalemia: Replenish with Kcl /-Urinary retention; Continuous Pozo catheterization Urology evaluation and recommendation noted and appreciated /-Hydronephrosis; due to bladder outlet obstruction Urinary retention, continuous Pozo catheterization Check Follow-up renal ultrasound in 1-2 days Urology evaluation noted and appreciated /-Febrile illness, likely from ongoing UTI Repeat UA neg repeat negative blood cultures no infiltrates on CXR /-Nephrolithiasis Multiple non obstructing renal stones seen Follow-up urology upon discharge /Urinary tract infection; present on admission Cont Empiric antibiotics, Supportive care /Severe malnutrition: On Nutrition supplements PEG placement recommended by surgery /-Hypotension; Gentle hydration and closely monitor blood pressures Pressors if needed /-History of lupus; continue On Plaquenil and steroids, supportive care /Oral thrush; Nystatin swish and swallow Diflucan, supportive care /-Sacral decubitus ulcers; present on admission Surgery evaluated the patient, not infected Wound care, surgical debridement if needed /-Thrombocytopenia; Due to lupus, closely monitor /Lactic acidosis; Probably secondary to sepsis, IV antibiotics /-Hx Asthma; ON Oxygen, nebulizers as needed, --DVT prophylaxis; SCDs, No pharmacological anticoagulation in view of thrombocytopenia Physical therapy occupational therapy and rehabilitation Monitor closely and adjust management as needed Discharge planning per case management Possible discharge in 1 to 2 days if stable - need placement brief History 59-year-old female with rheumatoid arthritis on chronic steroids, asthma, lupus, bilateral decubitus ulcers, apparently hasn't walked for the last couple of weeks and has been declining was admitted to the hospital on 07/09/2019 with complaints of failure to thrive and poor oral intake. Hospitalist Physical Gen: Not in acute distress, lying in bed, HEENT: Normocephalic, atraumatic Neck: supple, no JVD Heart: S1 and S2 reg, no murmurs, rubs or gallop Lungs: Clear, no crackles Abd: soft, non tender, non distended, normal BS, PEG tube Ext: Multiple ulcers lower extremities,dressing over lower ext Neuro: Awake, alert, oriented X 3, No focal neurological signs Sacral decub ulcers Subjective Date of service: 07/16/19 Principal diagnosis: Malnutrition Interval history: patient seen and examined has ongoing fever, oral intake remains poor, started TF Objective - Constitutional Vitals: Vital Signs - 12hr 07/16/19 07/16/19 07/16/19 04:35 05:37 12:21 Temperature 97.1 F L 98.9 F Pulse Rate 124 H 109 H Respiratory 20 18 18 Rate Blood Pressure 122/66 108/61 O2 Sat by Pulse 98 100 Oximetry - Labs CBC & Chem 7: 07/17/19 09:17 07/16/19 08:34 Labs: Abnormal lab results 07/15/19 07/15/19 07/16/19 Range/Units 19:50 19:50 08:34 RBC 2.39 L 2.38 L (3.65-5.03) M/mm3 Hgb 6.9 L 6.9 L (10.1-14.3) gm/dl Hct 20.7 L 20.8 L (30.3-42.9) % RDW 16.2 H 16.1 H (13.2-15.2) % Plt Count 59 L 59 L (140-440) K/mm3 Lymph # 0.8 L (1.2-5.4) K/mm3 Seg Neutrophils % 77.8 H (40.0-70.0) % Chloride 108.9 H (98-107) mmol/L Carbon Dioxide 20 L (22-30) mmol/L BUN 23 H (7-17) mg/dL Creatinine 0.2 L (0.7-1.2) mg/dL Glucose 143 H (65-100) mg/dL Calcium 7.7 L (8.4-10.2) mg/dL Total Protein 5.3 L (6.3-8.2) g/dL Albumin 1.6 L (3.9-5) g/dL Crossmatch 07/16/19 07/16/19 Range/Units 08:34 10:10 RBC (3.65-5.03) M/mm3 Hgb (10.1-14.3) gm/dl Hct (30.3-42.9) % RDW (13.2-15.2) % Plt Count (140-440) K/mm3 Lymph # (1.2-5.4) K/mm3 Seg Neutrophils % (40.0-70.0) % Chloride 109.5 H (98-107) mmol/L Carbon Dioxide 19 L (22-30) mmol/L BUN 20 H (7-17) mg/dL Creatinine 0.2 L (0.7-1.2) mg/dL Glucose 112 H (65-100) mg/dL Calcium 7.9 L (8.4-10.2) mg/dL Total Protein (6.3-8.2) g/dL Albumin (3.9-5) g/dL Crossmatch See Detail
[2019-07-16] MEDS: CYANOCOBALAMIN (VIT B-12) 100 MCG TAB PO SCH (15:23)
[2019-07-17 09:48] LABS: Hematocrit 26.6 % (30.3-42.9); Hemoglobin 8.9 gm/dl (10.1-14.3); Mean Corpuscular HGB Conc 33 % (30-34); Mean Corpuscular Volume 88 fl (79-97); Red Blood Count 3.04 M/mm3 (3.65-5.03); Red Cell Distribution Width 15.8 % (13.2-15.2)
[2019-07-17 09:51] LABS: Platelet Count 56 K/mm3 (140-440)
[2019-07-17] MEDS: MAGIC MOUTHWASH 30ML PO SCH ×3 (10:28→22:16)
[2019-07-17] MEDS: HYDROXYCHLOROQUINE 200 MG TAB PO SCH (10:28)
[2019-07-17] MEDS: predniSONE 5 MG TAB PO SCH (10:28)
[2019-07-17] MEDS: FLUCONAZOLE 100 MG TAB PO SCH (10:28)
[2019-07-17] MEDS: CALCIUM CARBONATE/VITAMIN D3 500 MG-200 UNIT TAB PO SCH (10:28)
[2019-07-17] MEDS: SODIUM CHLORIDE 0.9% 1000 ML 1,000 ML IV SCH (10:29)
[2019-07-17] MEDS: ASCORBIC ACID 500 MG TAB PO SCH (10:29)
[2019-07-17] MEDS: CYANOCOBALAMIN (VIT B-12) 100 MCG TAB PO SCH (10:35)
[2019-07-17] MEDS: ACETAMINOPHEN 325 MG TAB PO PRN (12:33)
--- NOTE | 2019-07-17 13:38 | Progress Note ---
Assessment and Plan /-Acute on Chronic Anemia - no active bleeding Monitor H&H and s/p transfuse one unit could be GI source - stool was positive for occult blood, will get GI opinion /Failure to thrive in an adult; s/p PEG tube placement, started PEG feeds cont Mechanical soft diet as tolerated and Nutrition supplements /-Hypokalemia: Replenish with Kcl /-Urinary retention; Continuous Pozo catheterization Urology evaluation and recommendation noted and appreciated /-Hydronephrosis; due to bladder outlet obstruction Urinary retention, continuous Pozo catheterization Check Follow-up renal ultrasound in 1-2 days Urology evaluation noted and appreciated /-Febrile illness, likely from ongoing UTI Repeat UA neg repeat negative blood cultures no infiltrates on CXR /-Nephrolithiasis Multiple non obstructing renal stones seen Follow-up urology upon discharge /Urinary tract infection; present on admission Cont Empiric antibiotics, Supportive care /Severe malnutrition: On Nutrition supplements PEG placement recommended by surgery /-Hypotension; Gentle hydration and closely monitor blood pressures Pressors if needed /-History of lupus; continue On Plaquenil and steroids, supportive care /Oral thrush; Nystatin swish and swallow Diflucan, supportive care /-Sacral decubitus ulcers; present on admission Surgery evaluated the patient, not infected Wound care, surgical debridement if needed /-Thrombocytopenia; Due to lupus, closely monitor /Lactic acidosis; Probably secondary to sepsis, IV antibiotics /-Hx Asthma; ON Oxygen, nebulizers as needed, --DVT prophylaxis; SCDs, No pharmacological anticoagulation in view of thrombocytopenia Physical therapy occupational therapy and rehabilitation Monitor closely and adjust management as needed Possible discharge in 1 to 2 days - need placement brief History 59-year-old female with rheumatoid arthritis on chronic steroids, asthma, lupus, bilateral decubitus ulcers, apparently hasn't walked for the last couple of weeks and has been declining was admitted to the hospital on 07/09/2019 with complaints of failure to thrive and poor oral intake. Hospitalist Physical Gen: Not in acute distress, lying in bed, HEENT: Normocephalic, atraumatic Neck: supple, no JVD Heart: S1 and S2 reg, no murmurs, rubs or gallop Lungs: Clear, no crackles Abd: soft, non tender, non distended, normal BS, PEG tube Ext: Multiple ulcers lower extremities,dressing over lower ext Neuro: Awake, alert, oriented X 3, No focal neurological signs Sacral decub ulcers Subjective Date of service: 07/17/19 Principal diagnosis: Malnutrition Interval history: Patient seen and examined No fever, oral intake remains poor, tolerating TF h/h stable Objective - Constitutional Vitals: Vital Signs - 12hr 07/17/19 07/17/19 05:05 11:46 Temperature 98.2 F 99.8 F H Pulse Rate 102 H 115 H Respiratory 20 18 Rate Blood Pressure 128/78 139/73 O2 Sat by Pulse 99 97 Oximetry - Labs CBC & Chem 7: 07/17/19 09:17 07/16/19 08:34 Labs: Abnormal lab results 07/16/19 07/17/19 Range/Units 10:10 09:17 WBC 4.4 L (4.5-11.0) K/mm3 RBC 3.04 L (3.65-5.03) M/mm3 Hgb 8.9 L (10.1-14.3) gm/dl Hct 26.6 L (30.3-42.9) % RDW 15.8 H (13.2-15.2) % Plt Count 56 L (140-440) K/mm3 Crossmatch See Detail
--- NOTE | 2019-07-17 15:48 | Progress Note ---
Assessment and Plan Cultures: 07/08/2019 urine culture: No growth 07/08/2019 blood culture: No growth 07/15/2019 blood culture: No growth A/P: 59-year-old female with rheumatoid arthritis on chronic steroids, asthma, lupus, bilateral decubitus ulcers, apparently hasn't walked for the last couple of weeks and has been declining was admitted to the hospital on 07/09/2019 with complaints of failure to thrive and poor oral intake. Now with: #Fever, unclear etiology: ? pneumonia was raised based on chest x-ray however u kianna my review, I see minimal bilateral lower lobe opacities that may be more atelectasis. Patient has no leukocytosis, has no respiratory distress. UA was without any significant pyuria. Blood cultures are in process. Patient clinically stable. She has a sacral decubitus but does not appear to be infected. Continue wound care. #Urinary tract infection, acute kidney injury, bladder outlet obstruction: Status post antibiotics and indwelling Ortiz catheter now. #Sacral decubitus but does not appear to be infected. Continue wound care. #Malnutrition: s/p PEG tube and tube feeds. #RA, lupus: on plaquenil, chronic low lose steroids. Immunocompromised host. #Pancytopenia Recs: low grade fevers +, will switch Levofloxacin to Cefepime and monitor response (still has sediment in her ortiz cath) ?lupus related fevers given drop in her counts, will also order C3, C4 and CRP Jena Espinosa MD, FACP [facility] ([facility] C: [phone] O: [phone] F: [phone] Subjective Date of service: 07/17/19 Principal diagnosis: Malnutrition Interval history: Low grade fevers +. Had shortness of breath earlier today. Urine still shows significant sediment. Objective - Exam Narrative Exam: Physical Exam: Constitutional: Alert, cooperative. No acute distress. Cachexia Head, Ears, Nose: Normocephalic, atraumatic. External ears, nose normal Eyes: Conjunctivae/corneas clear. No icterus. No ptosis. Neck: Supple, no meningeal signs Oral: dentition poor, no thrush Cardiovascular: S1, S2 normal. Respiratory: Good air entry, clear to auscultation bilaterally GI: Soft, non-tender; bowel sounds normal. No peritoneal signs. G tube Musculoskeletal: No pedal edema, no cyanosis. Skin: No rash or abscess. Sacral decubitus Hem/Lymphatic: No palpable cervical or supraclavicular nodes. No lymphangitis Psych: Mood ok. Affect normal Neurological: Awake, alert, oriented. - Constitutional Vitals: Vital Signs Temp Pulse Resp BP Pulse Ox 99.8 F H 115 H 18 139/73 97 07/17/19 11:46 07/17/19 11:46 07/17/19 11:46 07/17/19 11:46 07/17/19 11:46 Temperature -Last 24 Hours Temperature 99.8 F Temperature 98.2 F Temperature 99.0 F Temperature 99.0 F Temperature 99.7 F Temperature 99.7 F Temperature 100.1 F Temperature 100.1 F Temperature 99.1 F - Labs CBC & Chem 7: 07/17/19 09:17 07/16/19 08:34 Labs: Abnormal lab results 07/16/19 07/17/19 Range/Units 10:10 09:17 WBC 4.4 L (4.5-11.0) K/mm3 RBC 3.04 L (3.65-5.03) M/mm3 Hgb 8.9 L (10.1-14.3) gm/dl Hct 26.6 L (30.3-42.9) % RDW 15.8 H (13.2-15.2) % Plt Count 56 L (140-440) K/mm3 Crossmatch See Detail
[2019-07-17] MEDS: CEFEPIME/NS 2 GM/100 ML 2 GM/100 ML BAG IV SCH ×2 (18:53→22:13)
[2019-07-18] MEDS: SODIUM CHLORIDE 0.9% 1000 ML 1,000 ML IV SCH (06:54)
[2019-07-18] MEDS: ACETAMINOPHEN 325 MG TAB PO PRN (09:16)
[2019-07-18] MEDS: CALCIUM CARBONATE/VITAMIN D3 500 MG-200 UNIT TAB PO SCH (09:16)
[2019-07-18] MEDS: ASCORBIC ACID 500 MG TAB PO SCH (09:17)
[2019-07-18] MEDS: FLUCONAZOLE 100 MG TAB PO SCH (09:17)
[2019-07-18] MEDS: CYANOCOBALAMIN (VIT B-12) 100 MCG TAB PO SCH (09:17)
[2019-07-18] MEDS: HYDROXYCHLOROQUINE 200 MG TAB PO SCH (09:17)
[2019-07-18] MEDS: CEFEPIME/NS 2 GM/100 ML 2 GM/100 ML BAG IV SCH ×2 (09:44→22:04)
[2019-07-18] MEDS: MAGIC MOUTHWASH 30ML PO SCH ×3 (09:54→22:03)
[2019-07-18] MEDS: predniSONE 5 MG TAB PO SCH (09:57)
[2019-07-18] MEDS: ALBUTEROL 2.5 MG/3 ML NEBU IH PRN (10:32)
--- NOTE | 2019-07-18 11:55 | Progress Note ---
Assessment and Plan Cultures: 07/08/2019 urine culture: No growth 07/08/2019 blood culture: No growth 07/15/2019 blood culture: No growth A/P: 59-year-old female with rheumatoid arthritis on chronic steroids, asthma, lupus, bilateral decubitus ulcers, apparently hasn't walked for the last couple of weeks and has been declining was admitted to the hospital on 07/09/2019 with complaints of failure to thrive and poor oral intake. Now with: #Fever, unclear etiology: ? pneumonia was raised based on chest x-ray however u kianna my review, I see minimal bilateral lower lobe opacities that may be more atelectasis. Patient has no leukocytosis, has no respiratory distress. UA was without any significant pyuria. Blood cultures are negative. Patient clinically stable. She has a sacral decubitus but does not appear to be infected. Continue wound care. #Urinary tract infection, acute kidney injury, bladder outlet obstruction: Status post antibiotics and indwelling Ortiz catheter now. #Sacral decubitus but does not appear to be infected. Continue wound care. #Malnutrition: s/p PEG tube and tube feeds. #RA, lupus: on plaquenil, chronic low lose steroids. Immunocompromised host. #Pancytopenia Recs: given improvement in fever, continue Cefepime. With ongoing sediment in ortiz, will recommend exchange of Ortiz catheter ?lupus related fevers given drop in her counts, f/u C3, C4. CRP is mildly elevated at 2.9 Jena Espinosa MD, FACP [facility] C: [phone] O: [phone] F: [phone] Subjective Date of service: 07/18/19 Principal diagnosis: Malnutrition Interval history: No more fevers. No new complaints. Ortiz remains in place, with some sediment. Objective - Exam Narrative Exam: Physical Exam: Constitutional: Alert, cooperative. No acute distress. Cachexia Head, Ears, Nose: Normocephalic, atraumatic. External ears, nose normal Eyes: Conjunctivae/corneas clear. No icterus. No ptosis. Neck: Supple, no meningeal signs Oral: dentition poor, no thrush Cardiovascular: S1, S2 normal. Respiratory: Good air entry, clear to auscultation bilaterally GI: Soft, non-tender; bowel sounds normal. No peritoneal signs. G tube : indwelling ortiz cath + Musculoskeletal: No pedal edema, no cyanosis. Skin: No rash or abscess. Sacral decubitus Hem/Lymphatic: No palpable cervical or supraclavicular nodes. No lymphangitis Psych: Mood ok. Affect normal Neurological: Awake, alert, oriented - Constitutional Vitals: Vital Signs Temp Pulse Resp BP Pulse Ox 98.7 F 110 H 18 120/71 100 07/18/19 03:59 07/18/19 10:43 07/18/19 10:43 07/18/19 03:59 07/18/19 03:59 Temperature -Last 24 Hours Temperature 98.7 F Temperature 98.4 F Temperature 98.5 F - Labs CBC & Chem 7: 07/17/19 09:17 07/16/19 08:34 Labs: Abnormal lab results 07/17/19 Range/Units 15:49 C-Reactive Protein 2.90 H (0.00-1.30) mg/dL
--- NOTE | 2019-07-18 13:39 | Progress Note ---
Assessment and Plan 1. Heme + stool - significance unclear since recent PEG placement could account for this. Also, she had EGD showing only mild gastritis, is o/w asymptomatic, and had a colonoscopy last year. - would have pt f/u as outpatient with Dr. Shultz in 2 wks, to reevaluate, as G- tube site should no longer be a source of blood by then. 2. Anemia - likely ACD, given RA and comorbidities. Pt has chronic anemia. - f/u with her PCP and primary GI. Will sign off. Thanks. Subjective Date of service: 07/18/19 Principal diagnosis: Malnutrition, Heme + stool Interval history: Asked to see pt again due to stool positive for occult blood. Pt has chronic anemia, likely due to RA, but pt unaware. She is s/p EGD/PEG on 07/11, showing mild gastritis. She states she had a colonoscopy last year by Dr. Shultz, and cannot recall findings. No complaints of abd pain, N/V. Hgb dropped to 6.9, from 7.5 on admit, and is up now after transfusion. Objective - Constitutional Vitals: Vital Signs - 12hr 07/18/19 07/18/19 07/18/19 03:59 10:43 12:09 Temperature 98.7 F 98.3 F Pulse Rate 102 H 113 H Pulse Rate [ 110 H Bilateral Throughout] Respiratory 20 18 Rate Respiratory 18 Rate [Bilateral Throughout] Blood Pressure 120/71 98/65 O2 Sat by Pulse 100 97 Oximetry General appearance: Present: no acute distress, cachectic - EENT Eyes: PERRL, EOM intact - Respiratory Respiratory effort: normal - Gastrointestinal General gastrointestinal: Present: soft, non-tender, other (G-tube site clean, NT, no drainage.) Rectal Exam: other (Lax tone. Soft, loose brown stool, no jorge luis blood.) - Labs CBC & Chem 7: 07/17/19 09:17 07/16/19 08:34 Labs: Abnormal lab results 07/17/19 07/18/19 Range/Units 15:49 12:05 POC Glucose 109 H (70-105) C-Reactive Protein 2.90 H (0.00-1.30) mg/dL Medications & Allergies - Medications Allergies/Adverse Reactions: Allergies azithromycin Allergy (Verified 02/07/17 02:21) Swelling aspirin Adverse Reaction (Verified 02/06/17 13:00) Nausea Home Medications: Home Medications Medication Instructions Recorded Confirmed Last Taken Type Potassium Chloride [K-Dur] 20 meq PO QDAY 02/06/17 07/09/19 02/06/17 History Prednisone [predniSONE (Lainey) ER 5 mg PO QDAY 02/06/17 07/09/19 02/06/17 History TAB] oxyCODONE /ACETAMINOPHEN [Percocet 1 tab PO Q12H PRN #10 tablet 02/09/17 07/09/19 Unknown Rx 5/325 mg] Calcium 600-D3 20Mcg(800 Unit) 1 tab PO QDAY 07/09/19 07/09/19 07/07/19 08:00 History Cyanocobalamin (Vitamin B-12) 50 mcg PO QDAY 07/09/19 07/09/19 07/07/19 08:00 History Ferrous Sulfate 65 mg PO QDAY 07/09/19 07/09/19 07/07/19 08:00 History Hydroxychloroquine [Plaquenil] 200 mg PO QDAY 07/09/19 07/09/19 Unknown History Vitamin C 1,000 mg PO QDAY 07/09/19 07/09/19 07/07/19 08:00 History Active Medications: Generic Name Dose Route Start Last Admin Trade Name Freq PRN Reason Stop Dose Admin Acetaminophen 650 mg 07/09/19 00:35 07/18/19 09:16 Tylenol PO 650 mg Q4H PRN Administration Pain MILD(1-3)/Fever >100.5/LEIVA Albuterol 2.5 mg 07/09/19 01:08 07/18/19 10:32 Proventil IH 2.5 mg Q4HRT PRN Administration Shortness Of Breath Lipase/Protease/Amylase 1 each 07/13/19 12:[address] 10,500 Unit FEEDTUBE PRN PRN For Clogged Feeding Tube Ascorbic Acid 1,000 mg 07/10/19 10:00 07/18/19 09:17 Vitamin C PO 1,000 mg QDAY NITESH Administration Calcium/Vitamin D 1 each 07/10/19 10:00 07/18/19 09:16 Oysco D 500 Mg-200 Unit PO 1 each DAILY NITESH Administration Cyanocobalamin 50 mcg 07/10/19 10:00 07/18/19 09:17 Vitamin B-12 PO 50 mcg QDAY NITESH Administration Fluconazole 100 mg 07/10/19 13:00 07/18/19 09:17 Diflucan PO 07/23/19 10:01 100 mg QDAY NITESH Administration Hydroxychloroquine Sulfate 200 mg 07/10/19 10:00 07/18/19 09:17 Plaquenil PO 200 mg QDAY NITESH Administration Sodium Chloride 1,000 mls @ 50 mls/hr 07/11/19 11:00 07/18/19 06:54 Nacl 0.9% 1000 Ml IV 50 mls/hr DIRECT NITESH Administration Cefepime HCl 2 gm in 100 mls @ 200 mls/hr 07/17/19 16:00 07/18/19 09:44 Cefepime/Ns 2 Gm/100 Ml IV 200 mls/hr Q12HR NITESH Administration Protocol Lidocaine HCl 15 ml 07/10/19 14:00 07/18/19 09:54 Magic Mouthwash PO 15 ml TID NITESH Administration Ondansetron HCl 4 mg 07/09/19 00:35 Zofran IV Q8H PRN Nausea And Vomiting Pantoprazole Sodium 40 mg 07/18/19 12:00 Protonix PO BID NITESH Prednisone 5 mg 07/10/19 10:00 07/18/19 09:57 Deltasone PO 5 mg QDAY NITESH Administration Simple Syrup 15 ml 07/13/19 12:32 Simple Syrup FEEDTUBE PRN PRN Hypoglycemia Simple Syrup 30 ml 07/13/19 12:32 Simple Syrup FEEDTUBE PRN PRN Hypoglycemia Sodium Bicarbonate 325 mg 07/13/19 12:32 Sodium Bicarbonate FEEDTUBE PRN PRN For Clogged Feeding Tube Sodium Chloride 10 ml 07/09/19 10:00 07/18/19 09:50 Sodium Chloride Flush Syringe 10 Ml IV Not Given BID NITESH Sodium Chloride 10 ml 07/09/19 00:35 Sodium Chloride Flush Syringe 10 Ml IV PRN PRN LINE FLUSH
--- NOTE | 2019-07-18 14:51 | Progress Note ---
Assessment and Plan /-Acute on Chronic Anemia - no active bleeding Monitor H&H and s/p transfuse one unit could be GI source - stool was positive for occult blood, GI consulted - recommended outpt f/u /Failure to thrive in an adult; s/p PEG tube placement, started PEG feeds cont Mechanical soft diet as tolerated and Nutrition supplements /-Hypokalemia: Replenished with Kcl /-Urinary retention; Continuous Pozo catheterization Urology evaluation and recommendation noted and appreciated /-Hydronephrosis; due to bladder outlet obstruction Urinary retention, continuous Pozo catheterization Check Follow-up renal ultrasound in 1-2 days Urology evaluation noted and appreciated /-Febrile illness, likely from ongoing UTI Repeat UA neg repeat negative blood cultures no infiltrates on CXR /-Nephrolithiasis Multiple non obstructing renal stones seen Follow-up urology upon discharge /Urinary tract infection; present on admission Cont Empiric antibiotics, Supportive care /Severe malnutrition: On Nutrition supplements PEG placement recommended by surgery /-Hypotension; Gentle hydration and closely monitor blood pressures Pressors if needed /-History of lupus; continue On Plaquenil and steroids, supportive care /Oral thrush; Nystatin swish and swallow Diflucan, supportive care /-Sacral decubitus ulcers; present on admission Surgery evaluated the patient, not infected Wound care, surgical debridement if needed /-Thrombocytopenia; Due to lupus, closely monitor /Lactic acidosis; Probably secondary to sepsis, IV antibiotics /-Hx Asthma; ON Oxygen, nebulizers as needed, --DVT prophylaxis; SCDs, No pharmacological anticoagulation in view of thrombocytopenia Possible discharge in 1 to 2 days - need placement brief History 59-year-old female with rheumatoid arthritis on chronic steroids, asthma, lupus, bilateral decubitus ulcers, apparently hasn't walked for the last couple of weeks and has been declining was admitted to the hospital on 07/09/2019 with complaints of failure to thrive and poor oral intake. Hospitalist Physical Gen: Not in acute distress, lying in bed, HEENT: Normocephalic, atraumatic Neck: supple, no JVD Heart: S1 and S2 reg, no murmurs, rubs or gallop Lungs: Clear, no crackles Abd: soft, non tender, non distended, normal BS, PEG tube Ext: Multiple ulcers lower extremities,dressing over lower ext Neuro: Awake, alert, oriented X 3, No focal neurological signs Sacral decub ulcers Subjective Date of service: 07/18/19 Principal diagnosis: Malnutrition, Heme + stool Interval history: Patient seen and examined No fever, oral intake remains poor, tolerating TF h/h stable, discharge pending on placement Objective - Constitutional Vitals: Vital Signs - 12hr 07/18/19 07/18/19 07/18/19 03:59 10:43 12:09 Temperature 98.7 F 98.3 F Pulse Rate 102 H 113 H Pulse Rate [ 110 H Bilateral Throughout] Respiratory 20 18 Rate Respiratory 18 Rate [Bilateral Throughout] Blood Pressure 120/71 98/65 O2 Sat by Pulse 100 97 Oximetry - Labs CBC & Chem 7: 07/17/19 09:17 07/16/19 08:34 Labs: Abnormal lab results 07/17/19 07/18/19 Range/Units 15:49 12:05 POC Glucose 109 H (70-105) C-Reactive Protein 2.90 H (0.00-1.30) mg/dL
[2019-07-18] MEDS: PANTOPRAZOLE 40 MG TAB PO SCH ×2 (18:54→22:04)
[2019-07-19 05:36] LABS: Hematocrit 29.8 % (30.3-42.9); Mean Corpuscular HGB Conc 34 % (30-34); Mean Corpuscular Volume 88 fl (79-97); Red Cell Distribution Width 15.9 % (13.2-15.2)
[2019-07-19 05:38] LABS: Platelet Count 80 K/mm3 (140-440)
[2019-07-19 05:51] LABS: BUN/Creatinine Ratio 65; Blood Urea Nitrogen 13 mg/dL (7-17); Calcium 8.1 mg/dL (8.4-10.2); Hemolysis Index 7
[2019-07-19 06:09] LABS: Basophils % (Auto) 0.6 % (0.0-1.8); Eosinophils # (Auto) 0.1 K/mm3 (0.0-0.4); Eosinophils % (Auto) 1.4 % (0.0-4.3); Lymphocytes # (Auto) 1.6 K/mm3 (1.2-5.4); Lymphocytes % (Auto) 35.7 % (13.4-35.0); Monocytes # (Auto) 0.4 K/mm3 (0.0-0.8); Monocytes % (Auto) 8.8 % (0.0-7.3)
[2019-07-19 06:56] LABS: Anisocytosis 1+; Basophils % (Manual) 0 % (0.0-1.8); Eosinophils % (Manual) 0 % (0.0-4.3); Platelet Estimate Consistent w Auto; Total Cells Counted 100
--- NOTE | 2019-07-19 07:55 | Progress Note ---
Assessment and Plan Assessment and plan: --Acute on Chronic Anemia - no active bleeding Monitor H&H and s/p transfuse one unit could be GI source - stool was positive for occult blood, GI consulted - recommended outpt f/u --Failure to thrive in an adult; s/p PEG tube placement, started PEG feeds cont Mechanical soft diet as tolerated and Nutrition supplements --Hypokalemia: Corrected --Urinary retention; Continuous Pozo catheterization Urology evaluated , do not remove the Pozo --Hydronephrosis; due to bladder outlet obstruction Urinary retention, continuous Pozo catheterization --Febrile illness, likely from ongoing UTI Repeat UA neg repeat negative blood cultures no infiltrates on CXR --Nephrolithiasis Multiple non obstructing renal stones seen Follow-up urology upon discharge --Urinary tract infection; present on admission Cont Empiric antibiotics, Supportive care --Severe malnutrition: On Nutrition supplements PEG feeds per protocol, dietitian following --Chronic hypotension; Gentle hydration and closely monitor blood pressures Pressors if needed --History of lupus; continue On Plaquenil and steroids, supportive care --Oral thrush; Nystatin swish and swallow Diflucan, supportive care --Sacral decubitus ulcers; present on admission Surgery evaluated the patient, not infected Wound care, surgical debridement if needed --Thrombocytopenia; Due to lupus, closely monitor --Lactic acidosis; Probably secondary to sepsis, IV antibiotics --Hx Asthma; ON Oxygen, nebulizers as needed, --DVT prophylaxis; SCDs, No pharmacological anticoagulation in view of thrombocytopenia Awaiting placement History Interval history: Patient seen and examined this morning medical records reviewed Patient feels slightly better, awaiting placement Able to tolerate oral diet, PEG feeds as needed Vital signs reviewed Hospitalist Physical - Constitutional Vitals: Temp Pulse Resp BP Pulse Ox 97.9 F 112 H 22 142/84 100 07/19/19 05:31 07/19/19 05:31 07/19/19 05:31 07/19/19 05:31 07/19/19 05:31 General appearance: Present: no acute distress, cachectic - EENT Eyes: Present: PERRL, EOM intact - Neck Neck: Present: supple, normal ROM - Respiratory Respiratory effort: normal Respiratory: bilateral: diminished, negative: rales, rhonchi, wheezing - Cardiovascular Rhythm: regular Heart Sounds: Present: S1 & S2 - Extremities Extremities: no ischemia, No edema - Abdominal General gastrointestinal: soft, non-tender, non-distended, normal bowel sounds - Integumentary Integumentary: Present: clear, warm - Psychiatric Psychiatric: appropriate mood/affect, cooperative - Neurologic Neurologic: CNII-XII intact, moves all extremities Results - Labs CBC & Chem 7: 07/19/19 04:35 07/19/19 04:35 Labs: Laboratory Last Values WBC 4.6 K/mm3 (4.5-11.0) 07/19/19 04:35 RBC 3.40 M/mm3 (3.65-5.03) L 07/19/19 04:35 Hgb 10.0 gm/dl (10.1-14.3) L 07/19/19 04:35 Hct 29.8 % (30.3-42.9) L 07/19/19 04:35 MCV 88 fl (79-97) 07/19/19 04:35 MCH 29 pg (28-32) 07/19/19 04:35 MCHC 34 % (30-34) 07/19/19 04:35 RDW 15.9 % (13.2-15.2) H 07/19/19 04:35 Plt Count 80 K/mm3 (140-440) L 07/19/19 04:35 Lymph % (Auto) 35.7 % (13.4-35.0) H 07/19/19 04:35 [place] % (Auto) 8.8 % (0.0-7.3) H 07/19/19 04:35 Eos % (Auto) 1.4 % (0.0-4.3) 07/19/19 04:35 Baso % (Auto) 0.6 % (0.0-1.8) 07/19/19 04:35 Lymph # 1.6 K/mm3 (1.2-5.4) 07/19/19 04:35 [place] # 0.4 K/mm3 (0.0-0.8) 07/19/19 04:35 Eos # 0.1 K/mm3 (0.0-0.4) 07/19/19 04:35 Baso # 0.0 K/mm3 (0.0-0.1) 07/19/19 04:35 Add Manual Diff Complete 07/19/19 04:35 Total Counted 100 07/19/19 04:35 Seg Neutrophils % 53.5 % (40.0-70.0) 07/19/19 04:35 Seg Neuts % (Manual) 67.0 % (40.0-70.0) 07/19/19 04:35 Band Neutrophils % 1.0 % 07/19/19 04:35 Lymphocytes % (Manual) 24.0 % (13.4-35.0) 07/19/19 04:35 Reactive Lymphs % (Man) 0 % 07/19/19 04:35 Monocytes % (Manual) 8.0 % (0.0-7.3) H 07/19/19 04:35 Eosinophils % (Manual) 0 % (0.0-4.3) 07/19/19 04:35 Basophils % (Manual) 0 % (0.0-1.8) 07/19/19 04:35 Metamyelocytes % 0 % 07/19/19 04:35 Myelocytes % 0 % 07/19/19 04:35 Promyelocytes % 0 % 07/19/19 04:35 Blast Cells % 0 % 07/19/19 04:35 Nucleated RBC % Not Reportable 07/19/19 04:35 Seg Neutrophils # 2.5 K/mm3 (1.8-7.7) 07/19/19 04:35 Seg Neutrophils # Man 3.1 K/mm3 (1.8-7.7) 07/19/19 04:35 Band Neutrophils # 0.0 K/mm3 07/19/19 04:35 Lymphocytes # (Manual) 1.1 K/mm3 (1.2-5.4) L 07/19/19 04:35 Abs React Lymphs (Man) 0.0 K/mm3 07/19/19 04:35 Monocytes # (Manual) 0.4 K/mm3 (0.0-0.8) 07/19/19 04:35 Eosinophils # (Manual) 0.0 K/mm3 (0.0-0.4) 07/19/19 04:35 Basophils # (Manual) 0.0 K/mm3 (0.0-0.1) 07/19/19 04:35 Metamyelocytes # 0.0 K/mm3 07/19/19 04:35 Myelocytes # 0.0 K/mm3 07/19/19 04:35 Promyelocytes # 0.0 K/mm3 07/19/19 04:35 Blast Cells # 0.0 K/mm3 07/19/19 04:35 WBC Morphology Not Reportable 07/19/19 04:35 Hypersegmented Neuts Not Reportable 07/19/19 04:35 Hyposegmented Neuts Not Reportable 07/19/19 04:35 Hypogranular Neuts Not Reportable 07/19/19 04:35 Smudge Cells Not Reportable 07/19/19 04:35 Toxic Granulation Not Reportable 07/19/19 04:35 Toxic Vacuolation Not Reportable 07/19/19 04:35 Dohle Bodies Not Reportable 07/19/19 04:35 Pelger-Huet Anomaly Not Reportable 07/19/19 04:35 Leonor Rods Not Reportable 07/19/19 04:35 Platelet Estimate Consistent w auto 07/19/19 04:35 Clumped Platelets Not Reportable 07/19/19 04:35 Plt Clumps, EDTA Not Reportable 07/19/19 04:35 Large Platelets Not Reportable 07/19/19 04:35 Giant Platelets Not Reportable 07/19/19 04:35 Platelet Satelliting Not Reportable 07/19/19 04:35 Plt Morphology Comment Not Reportable 07/19/19 04:35 RBC Morphology Not Reportable 07/19/19 04:35 Dimorphic RBCs Not Reportable 07/19/19 04:35 Polychromasia Not Reportable 07/19/19 04:35 Hypochromasia Not Reportable 07/19/19 04:35 Poikilocytosis Not Reportable 07/19/19 04:35 Anisocytosis 1+ 07/19/19 04:35 Microcytosis Not Reportable 07/19/19 04:35 Macrocytosis Not Reportable 07/19/19 04:35 Spherocytes Not Reportable 07/19/19 04:35 Pappenheimer Bodies Not Reportable 07/19/19 04:35 Sickle Cells Not Reportable 07/19/19 04:35 Target Cells Not Reportable 07/19/19 04:35 Tear Drop Cells Not Reportable 07/19/19 04:35 Ovalocytes Not Reportable 07/19/19 04:35 Helmet Cells Not Reportable 07/19/19 04:35 [place] Bodies Not Reportable 07/19/19 04:35 [place] Rings Not Reportable 07/19/19 04:35 [place] Cells Not Reportable 07/19/19 04:35 Bite Cells Not Reportable 07/19/19 04:35 Crenated Cell Not Reportable 07/19/19 04:35 Elliptocytes Not Reportable 07/19/19 04:35 Acanthocytes (Spur) Not Reportable 07/19/19 04:35 Rouleaux Not Reportable 07/19/19 04:35 Hemoglobin C Crystals Not Reportable 07/19/19 04:35 Schistocytes Not Reportable 07/19/19 04:35 Malaria parasites Not Reportable 07/19/19 04:35 Hero Bodies Not Reportable 07/19/19 04:35 Hem Pathologist Commnt No 07/19/19 04:35 PT 16.0 Sec. (12.2-14.9) H 07/11/19 04:07 INR 1.30 (0.87-1.13) H 07/11/19 04:07 Sodium 136 mmol/L (137-145) L 07/19/19 04:35 Potassium 4.3 mmol/L (3.6-5.0) 07/19/19 04:35 Chloride 106.6 mmol/L (98-107) 07/19/19 04:35 Carbon Dioxide 23 mmol/L (22-30) 07/19/19 04:35 Anion Gap 11 mmol/L 07/19/19 04:35 BUN 13 mg/dL (7-17) 07/19/19 04:35 Creatinine 0.2 mg/dL (0.7-1.2) L 07/19/19 04:35 Estimated GFR > 60 ml/min 07/19/19 04:35 BUN/Creatinine Ratio 65 % 07/19/19 04:35 Glucose 98 mg/dL (65-100) 07/19/19 04:35 POC Glucose 133 (70-105) H 07/18/19 16:38 Lactic Acid 1.00 mmol/L (0.7-2.0) 07/09/19 04:03 Calcium 8.1 mg/dL (8.4-10.2) L 07/19/19 04:35 Phosphorus 1.70 mg/dL (2.5-4.5) L 07/12/19 04:06 Magnesium 1.20 mg/dL (1.7-2.3) L 07/12/19 04:06 Total Bilirubin 0.20 mg/dL (0.1-1.2) 07/15/19 19:50 AST 28 units/L (5-40) 07/15/19 19:50 ALT 18 units/L (7-56) 07/15/19 19:50 Alkaline Phosphatase 46 units/L (35-129) 07/15/19 19:50 Total Creatine Kinase 59 units/L (30-135) 07/08/19 21:00 C-Reactive Protein 2.90 mg/dL (0.00-1.30) H 07/17/19 15:49 NT-Pro-B Natriuret Pep 309.8 pg/mL (0-900) 07/09/19 01:50 Total Protein 5.3 g/dL (6.3-8.2) L 07/15/19 19:50 Albumin 1.6 g/dL (3.9-5) L 07/15/19 19:50 Albumin/Globulin Ratio 0.4 % 07/15/19 19:50 Prealbumin 0.132 g/L (0.200-0.400) L 07/09/19 04:03 Vitamin B12 1511 pg/mL (211-911) H 07/11/19 20:37 25-Hydroxy Vitamin D2 <4 ng/mL 07/11/19 20:37 1,25 Dihydroxy Vit D2 <8 pg/mL 07/11/19 20:37 25-Hydroxy Vitamin D3 13 ng/mL 07/11/19 20:37 1,25 Dihydroxy Vit D3 23 pg/mL 07/11/19 20:37 Procalcitonin 0.14 ng/mL (<0.15) 07/16/19 14:27 Urine Color Yellow (Yellow) 07/14/19 15:09 Urine Turbidity Clear (Clear) 07/14/19 15:09 Urine pH 6.0 (5.0-7.0) 07/14/19 15:09 Ur Specific [place] 1.012 (1.003-1.030) 07/14/19 15:09 Urine Protein <15 mg/dl mg/dL (Negative) 07/14/19 15:09 Urine Glucose (UA) Neg mg/dL (Negative) 07/14/19 15:09 Urine Ketones Neg mg/dL (Negative) 07/14/19 15:09 Urine Blood Neg (Negative) 07/14/19 15:09 Urine Nitrite Neg (Negative) 07/14/19 15:09 Urine Bilirubin Neg (Negative) 07/14/19 15:09 Urine Urobilinogen < 2.0 mg/dL (<2.0) 07/14/19 15:09 Ur Leukocyte Esterase Lg (Negative) 07/14/19 15:09 Urine WBC (Auto) 2.0 /HPF (0.0-6.0) 07/14/19 15:09 Urine RBC (Auto) 2.0 /HPF (0.0-6.0) 07/14/19 15:09 U Epithel Cells (Auto) 3.0 /HPF (0-13.0) 07/08/19 20:42 Urine WBC Clumps 3+ /HPF 07/08/19 20:42 Blood Type A POSITIVE 07/16/19 10:10 Antibody Screen Negative 07/16/19 10:10 Crossmatch See Detail 07/16/19 10:10 Active Medications - Current Medications Current Medications: Generic Name Dose Route Start Last Admin Trade Name Freq PRN Reason Stop Dose Admin Acetaminophen 650 mg 07/09/19 00:35 07/18/19 09:16 Tylenol PO 650 mg Q4H PRN Administration Pain MILD(1-3)/Fever >100.5/LEIVA Albuterol 2.5 mg 07/09/19 01:08 07/18/19 10:32 Proventil IH 2.5 mg Q4HRT PRN Administration Shortness Of Breath Lipase/Protease/Amylase 1 each 07/13/19 12:[address] 10,500 Unit FEEDTUBE PRN PRN For Clogged Feeding Tube Ascorbic Acid 1,000 mg 07/10/19 10:00 07/18/19 09:17 Vitamin C PO 1,000 mg QDAY NITESH Administration Calcium/Vitamin D 1 each 07/10/19 10:00 07/18/19 09:16 Oysco D 500 Mg-200 Unit PO 1 each DAILY NITESH Administration Cyanocobalamin 50 mcg 07/10/19 10:00 07/18/19 09:17 Vitamin B-12 PO 50 mcg QDAY NITESH Administration Fluconazole 100 mg 07/10/19 13:00 07/18/19 09:17 Diflucan PO 07/23/19 10:01 100 mg QDAY NITESH Administration Hydroxychloroquine Sulfate 200 mg 07/10/19 10:00 07/18/19 09:17 Plaquenil PO 200 mg QDAY NITESH Administration Cefepime HCl 2 gm in 100 mls @ 200 mls/hr 07/17/19 16:00 07/18/19 22:04 Cefepime/Ns 2 Gm/100 Ml IV 200 mls/hr Q12HR NITESH Administration Protocol Lidocaine HCl 15 ml 07/10/19 14:00 07/18/19 22:03 Magic Mouthwash PO 15 ml TID NITESH Administration Ondansetron HCl 4 mg 07/09/19 00:35 Zofran IV Q8H PRN Nausea And Vomiting Pantoprazole Sodium 40 mg 07/18/19 12:00 07/18/19 22:04 Protonix PO 40 mg BID NITESH Administration Prednisone 5 mg 07/10/19 10:00 07/18/19 09:57 Deltasone PO 5 mg QDAY NITESH Administration Simple Syrup 15 ml 07/13/19 12:32 Simple Syrup FEEDTUBE PRN PRN Hypoglycemia Simple Syrup 30 ml 07/13/19 12:32 Simple Syrup FEEDTUBE PRN PRN Hypoglycemia Sodium Bicarbonate 325 mg 07/13/19 12:32 Sodium Bicarbonate FEEDTUBE PRN PRN For Clogged Feeding Tube Sodium Chloride 10 ml 07/09/19 10:00 07/18/19 22:04 Sodium Chloride Flush Syringe 10 Ml IV 10 ml BID NITESH Administration Sodium Chloride 10 ml 07/09/19 00:35 Sodium Chloride Flush Syringe 10 Ml IV PRN PRN LINE FLUSH Nutrition/Malnutrition Assess - Dietary Evaluation Nutrition/Malnutrition Findings: Nutrition Notes Start: 07/09/19 13:14 Freq: Status: Active Protocol: Document 07/18/19 11:36 CT (Rec: 07/18/19 12:12 CT [id number]) Co-Sign 07/18/19 11:36 LP Nutrition Notes Initial or Follow up Reassessment Current Diagnosis Acute Kidney Injury,Decubitus( Pressure Ulcer) Other Pertinent Diagnosis Lupus, Nephrolithiasis, hydronephphritis, acute cystitis, multiple PU Current Diet Jevity 1.2 at 55 ml/hr + mech soft Labs/Tests BUN 20 Creatinine 0.2 Glu 112 Pertinent Medications NS 50 ml/hr Height 5 ft 3 in Weight 43.091 kg [place] Body Weight (kg) 52.27 BMI 16.8 Subjective/Other Information Jevity running at 55 ml/hr. Pt stated that she did not like the mechanical soft diet, but enjoys the Ensure. Noted several Ensure on the table. Pt stated that her taste buds are not the same, and food tastes weird to her. She feels full when trying to eat PO. Explained to pt about doing TF at night, so she can attempt to eat PO during the day. Pt states she has no issue chewing or swallowing. Percent of energy/protein needs met: 100%/100% Burn Absent Trauma Absent Food Allergy No Current % PO Negligible Minimum of two criteria Yes Energy Intake (severe) < or equal to 50% Estimated Energy Requirement > or equal to 5 days Interpretation of Weight Loss (non- 1-2% in 1 week severe) Body Fat Depletion Mild depletion (non-severe) Muscle Mass Mild Depletion (non-severe) #2 Nutrition Diagnosis Increased nutrient needs ( specify in comment below) Diagnosis Progress(for reassessment Continues documentation) #1 Nutrition Diagnosis Malnutrition Diagnosis Progress(for reassessment Continues documentation) Is patient on ventilator? No Is Patient Ambulatory and/or Out of Bed No REE-([facility]-confined to bed) 1169.280 Kcal/Kg value to use for calculation 35 Approximate Energy Requirements Using 1508 kcal/Kg Calculation Used for Recommendations Kcal/kg Additional Notes Protein needs are 52-65g (1.2- 1.5g/kg) Fluid needs are 1ml/kcal Nutrition Intervention Change Diet Order: Change TF to cyclic and regular diet Nutrition Support: Cycle Jevity 1.2 for 10 hours (20:00-06:00) at goal rate of 75 ml/hr 100 ml free water flush q4h Kcal 900 Protein (gm) 42 Fluid (mL) 605 Add Supplement/Snack (indicate name/kcal Giancarlo BID /protein ) d/c Ensure BID Provides kCal: 190 Provides Protein (gm) 5 Goal #1 Meet at least 80% of kcal and protein needs via TF/PO/ONS Anticipated Discharge Needs: unable to determine at this time Follow-Up By: 07/20/19 Additional Comments Follow up for Cyclic TF tolerance, PO/ONS intakes
[2019-07-19] MEDS: MAGIC MOUTHWASH 30ML PO SCH ×3 (11:48→20:04)
[2019-07-19] MEDS: CEFEPIME/NS 2 GM/100 ML 2 GM/100 ML BAG IV SCH (11:49)
[2019-07-19] MEDS: CYANOCOBALAMIN (VIT B-12) 100 MCG TAB PO SCH (11:52)
[2019-07-19] MEDS: ASCORBIC ACID 500 MG TAB PO SCH (11:52)
[2019-07-19] MEDS: FLUCONAZOLE 100 MG TAB PO SCH (11:53)
[2019-07-19] MEDS: CALCIUM CARBONATE/VITAMIN D3 500 MG-200 UNIT TAB PO SCH (11:53)
[2019-07-19] MEDS: HYDROXYCHLOROQUINE 200 MG TAB PO SCH (11:54)
[2019-07-19] MEDS: predniSONE 5 MG TAB PO SCH (11:54)
[2019-07-19] MEDS: PANTOPRAZOLE 40 MG TAB PO SCH ×2 (11:55→23:17)
--- NOTE | 2019-07-19 12:50 | Progress Note ---
Assessment and Plan 59 yo F with 1. unstageable sacral and ischial wounds 2. severe protein calorie malnutrition s/p PEG tube placement 3. bedbound 4. bladder outlet obstruction 5. sepsis 2/2 UTI 6. Lupus 7. thrombocytopenia 8. KAREN Plan: 1. Reg diet with protein supplements. 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 continue TF 2. Offloading 3. abx per 1' service 4. Wounds appear to be responding well to topical wound care without signs of infection. Per patient and gusset folder, patient is very sensitive in the area of the wounds. If she is still in the hospital by Tuesday, will proceed to OR for debridement. If patient is discharged, will debride as outpatient over several appointments. Thank you, please call with questions. Plan discussed extensively with patient and family at bedside. All questions answered. Subjective Date of service: 07/19/19 Narrative: Pt seen and examined. No acute complaints. No f/c. Feeling better Objective Vital Signs - 12hr 07/19/19 07/19/19 05:31 11:49 Temperature 97.9 F 99.9 F H Pulse Rate 112 H 124 H Respiratory 22 18 Rate Blood Pressure 142/84 103/74 O2 Sat by Pulse 100 82 L Oximetry - General physical appearance Narrative Exam: Gen: AAOx3. NAD CV: s1, S2+ resp: even and unlabored Ext: b/l LE contracted with boots in place. Dressings c/d/i Sacral and ischial wounds - gusset folder photos from 07/18/19 reviewed - Labs 07/19/19 04:35 07/19/19 04:35 Diabetes panel 07/19/19 Range/Units 04:35 Sodium 136 L (137-145) mmol/L Potassium 4.3 (3.6-5.0) mmol/L Chloride 106.6 (98-107) mmol/L Carbon Dioxide 23 (22-30) mmol/L BUN 13 (7-17) mg/dL Creatinine 0.2 L (0.7-1.2) mg/dL Glucose 98 (65-100) mg/dL Calcium 8.1 L (8.4-10.2) mg/dL Calcium panel 07/19/19 Range/Units 04:35 Calcium 8.1 L (8.4-10.2) mg/dL Pituitary panel 07/19/19 Range/Units 04:35 Sodium 136 L (137-145) mmol/L Potassium 4.3 (3.6-5.0) mmol/L Chloride 106.6 (98-107) mmol/L Carbon Dioxide 23 (22-30) mmol/L BUN 13 (7-17) mg/dL Creatinine 0.2 L (0.7-1.2) mg/dL Glucose 98 (65-100) mg/dL Calcium 8.1 L (8.4-10.2) mg/dL Adrenal panel 07/19/19 Range/Units 04:35 Sodium 136 L (137-145) mmol/L Potassium 4.3 (3.6-5.0) mmol/L Chloride 106.6 (98-107) mmol/L Carbon Dioxide 23 (22-30) mmol/L BUN 13 (7-17) mg/dL Creatinine 0.2 L (0.7-1.2) mg/dL Glucose 98 (65-100) mg/dL Calcium 8.1 L (8.4-10.2) mg/dL
--- NOTE | 2019-07-19 13:13 | Progress Note ---
Assessment and Plan Cultures: 07/08/2019 urine culture: No growth 07/08/2019 blood culture: No growth 07/15/2019 blood culture: No growth A/P: 59-year-old female with rheumatoid arthritis on chronic steroids, asthma, lupus, bilateral decubitus ulcers, apparently hasn't walked for the last couple of weeks and has been declining was admitted to the hospital on 07/09/2019 with complaints of failure to thrive and poor oral intake. Now with: #Fever, unclear etiology: ? pneumonia was raised based on chest x-ray however u kianna my review, I see minimal bilateral lower lobe opacities that may be more atelectasis. Patient has no leukocytosis, has no respiratory distress. UA was without any significant pyuria. Blood cultures are negative. Patient clinically stable. She has a sacral decubitus but does not appear to be infected. Continue wound care. #Urinary tract infection, acute kidney injury, bladder outlet obstruction: Status post antibiotics and indwelling Ortiz catheter now. #Sacral decubitus ulcer: does not appear to be infected. Continue wound care. #Malnutrition: s/p PEG tube and tube feeds. #RA, lupus: on plaquenil, chronic low lose steroids. Immunocompromised host. #Pancytopenia Recs: per RN, Urology does not want Ortiz exchanged Patient is afebrile, no other source of infection identified at this time, will d/c abx and monitor ?lupus related fevers given drop in her counts, f/u C3, C4. CRP is mildly elevated at 2.9 Jena Espinosa MD, FACP [facility], [facility] C: [phone] O: [phone] F: [phone] Subjective Date of service: 07/19/19 Principal diagnosis: Malnutrition, Heme + stool Interval history: No fever. No new complaints. Lying in bed. Objective - Exam Narrative Exam: Physical Exam: Constitutional: Alert, cooperative. No acute distress. Cachexia Head, Ears, Nose: Normocephalic, atraumatic. External ears, nose normal Eyes: Conjunctivae/corneas clear. No icterus. No ptosis. Neck: Supple, no meningeal signs Oral: dentition poor, no thrush Cardiovascular: S1, S2 normal. Respiratory: Good air entry, clear to auscultation bilaterally GI: Soft, non-tender; bowel sounds normal. No peritoneal signs. G tube : indwelling ortiz cath + Musculoskeletal: No pedal edema, no cyanosis. Skin: No rash or abscess. Sacral decubitus Hem/Lymphatic: No palpable cervical or supraclavicular nodes. No lymphangitis Psych: Mood ok. Affect normal Neurological: Awake, alert, oriented - Constitutional Vitals: Vital Signs Temp Pulse Resp BP Pulse Ox 99.9 F H 124 H 18 103/74 82 L 07/19/19 11:49 07/19/19 11:49 07/19/19 11:49 07/19/19 11:49 07/19/19 11:49 Temperature -Last 24 Hours Temperature 99.9 F Temperature 97.9 F Temperature 98.0 F Temperature 97.8 F - Labs CBC & Chem 7: 07/19/19 04:35 07/19/19 04:35 Labs: Abnormal lab results 07/18/19 07/19/19 07/19/19 Range/Units 16:38 04:35 04:35 RBC 3.40 L (3.65-5.03) M/mm3 Hgb 10.0 L (10.1-14.3) gm/dl Hct 29.8 L (30.3-42.9) % RDW 15.9 H (13.2-15.2) % Plt Count 80 L (140-440) K/mm3 Lymph % (Auto) 35.7 H (13.4-35.0) % [place] % (Auto) 8.8 H (0.0-7.3) % Monocytes % (Manual) 8.0 H (0.0-7.3) % Lymphocytes # (Manual) 1.1 L (1.2-5.4) K/mm3 Sodium 136 L (137-145) mmol/L Creatinine 0.2 L (0.7-1.2) mg/dL POC Glucose 133 H (70-105) Calcium 8.1 L (8.4-10.2) mg/dL Prealbumin (0.200-0.400) g/L 07/19/19 Range/Units 04:35 RBC (3.65-5.03) M/mm3 Hgb (10.1-14.3) gm/dl Hct (30.3-42.9) % RDW (13.2-15.2) % Plt Count (140-440) K/mm3 Lymph % (Auto) (13.4-35.0) % [place] % (Auto) (0.0-7.3) % Monocytes % (Manual) (0.0-7.3) % Lymphocytes # (Manual) (1.2-5.4) K/mm3 Sodium (137-145) mmol/L Creatinine (0.7-1.2) mg/dL POC Glucose (70-105) Calcium (8.4-10.2) mg/dL Prealbumin 0.085 L (0.200-0.400) g/L
[2019-07-19] MEDS: ACETAMINOPHEN 325 MG TAB PO PRN (19:59)
[2019-07-20] MEDS: MAGIC MOUTHWASH 30ML PO SCH ×2 (12:08→15:03)
[2019-07-20] MEDS: PANTOPRAZOLE 40 MG TAB PO SCH (12:09)
[2019-07-20] MEDS: CALCIUM CARBONATE/VITAMIN D3 500 MG-200 UNIT TAB PO SCH (12:09)
[2019-07-20] MEDS: predniSONE 5 MG TAB PO SCH (12:10)
[2019-07-20] MEDS: ASCORBIC ACID 500 MG TAB PO SCH (12:10)
[2019-07-20] MEDS: HYDROXYCHLOROQUINE 200 MG TAB PO SCH (12:10)
[2019-07-20] MEDS: FLUCONAZOLE 100 MG TAB PO SCH (12:10)
[2019-07-20] MEDS: CYANOCOBALAMIN (VIT B-12) 100 MCG TAB PO SCH (12:11)
[2019-07-20] MEDS: ACETAMINOPHEN 325 MG TAB PO PRN (12:14)
--- NOTE | 2019-07-20 12:33 | Discharge Summary ---
Providers - Providers Date of Admission: 07/09/19 00:35 Date of discharge: 07/20/19 Attending physician: MOUSTAPHA CHAMBERLAIN 07/09/19 00:35 Consult to Physician [CONS] Routine Comment: Consulting Provider: SNOW LANCE Physician Instructions: Reason For Exam: urinary obstruction 07/09/19 00:38 Consult to Dietitian/Nutrition [CONS] Routine Physician Instructions: Reason For Exam: Reason for Consult: Malnutrition 07/09/19 00:39 Consult to Case Management [CONS] Routine Services Needed at Discharge: Home Health Services Notified:: Leigh Miller Was contact made?: Yes If yes, spoke with:: Leigh Miller 07/09/19 01:07 Consult to Wound/ET Nurse [CONS] Routine Reason For Exam: wound eval 07/09/19 06:02 Consult to Physician [CONS] Routine Comment: Consulting Provider: DENG MACIEL Physician Instructions: Reason For Exam: sacral decb 07/10/19 10:39 Consult to Physician [CONS] Routine Comment: Consulting Provider: SAM CARRILLO Physician Instructions: Reason For Exam: peg eval, failure to thrive 07/11/19 09:08 Consult to Physician [CONS] Routine Comment: Consulting Provider: BRYSON MARCANO Physician Instructions: Reason For Exam: worsening mental status/h/o Lupus 07/11/19 16:04 Consult to Dietitian/Nutrition [CONS] Routine Physician Instructions: Reason For Exam: Reason for Consult: post-peg 07/11/19 19:29 Consult to Dietitian/Nutrition [CONS] Routine Physician Instructions: Assess nutrtn needs, initiate, modify, manage TF Reason For Exam: Reason for Consult: Write/Manage Tube Feeding Reason for Consult: Write/Manage Tube Feeding 07/12/19 10:04 Consult to Dietitian/Nutrition [CONS] Routine Physician Instructions: Assess nutrtn needs, initiate, modify, manage TF Reason For Exam: Reason for Consult: Write/Manage Tube Feeding Reason for Consult: Write/Manage Tube Feeding 07/13/19 09:14 Physical Therapy Evaluation and Treat [CONS] Routine Comment: Reason For Exam: Chronic illness/debility 07/16/19 07:36 Consult to Physician [CONS] Routine Comment: Consulting Provider: ERNESTINE VILLAR Physician Instructions: Reason For Exam: Fever, pneumonia on cxr 07/16/19 12:08 Occupational Therapy Evaluate and Treat [CONS] Routine Comment: Reason For Exam: generalized weakness 07/18/19 11:39 Consult to Physician [CONS] Routine Comment: Consulting Provider: RYLAND BENITEZ Physician Instructions: Reason For Exam: gi bleed Primary care physician: WAIVER ANALYST Hospitalization Reason for admission: failure to thrive/multiple decubitus ulcers/unable to ambulate Condition: Stable Pertinent studies: CT head CT abdomen and pelvis Chest x-ray Procedures: PEG placement Hospital course: 59 year old -[place] female with history of rheumatoid arthritis, asthma, lupus, chronic anemia, bilateral sacral pressure ulcers was admitted through [facility] ED with complaints of failure to thrive. Patient was evaluated by surgery, advised wound care, surgery recommended PEG placement to improve nutritional status, received PEG , started on tube feeding, meanwhile patient is tolerating soft diet. Patient has multiple decubitus ulcers, evaluated by surgery, recommended wound care and surgical debridement as outpatient Patient had bilateral crit obstruction, evaluated by urology, on continuous Ortiz catheterization, advised not to remove ortiz catheter Follow-up with urology in 1-2 weeks. Today patient is comfortable no new complaints vital signs stable Tolerating mechanical soft diet, PEG feeds as needed. Stable for discharge and transfer to SNF Discharge diagnosis: --Failure to thrive in an adult; s/p PEG tube placement, started PEG feeds cont Mechanical soft diet as tolerated and Nutrition supplements --Hypokalemia: Corrected --Urinary retention; Continuous Ortiz catheterization Urology evaluated , do not remove the Ortiz --Hydronephrosis; due to bladder outlet obstruction Urinary retention, continuous Ortiz catheterization --Acute on Chronic Anemia - no active bleeding Monitor H&H and s/p transfuse one unit stool was positive for occult blood, GI consulted - recommended outpt f/u --Febrile illness, likely from ongoing UTI Patient received antibiotics --Nephrolithiasis Multiple non obstructing renal stones seen Follow-up urology upon discharge --Urinary tract infection; present on admission s/p antibiotics, Supportive care --Severe malnutrition: On Nutrition supplements PEG feeds per protocol, dietitian following --Chronic hypotension;resolved Gentle hydration and closely monitor blood pressures Pressors if needed --History of lupus; continue On Plaquenil and steroids, supportive care --Oral thrush;improved s/p Nystatin swish and swallow s/p Diflucan, --Sacral decubitus ulcers; present on admission Surgery evaluated the patient, not infected Wound care, surgical debridement if needed --Thrombocytopenia; Due to lupus, closely monitor --Lactic acidosis;Resolved Probably secondary to sepsis. --Hx Asthma; ON Oxygen, nebulizers as needed, --DVT prophylaxis; SCDs, No pharmacological anticoagulation in view of thrombocytopenia Stable at discharge and transferred to SNF Disposition: DC/TX-03 SNF W [facility] Time spent for discharge: 32 min Core Measure Documentation - Palliative Care Palliative Care/ Comfort Measures: Not Applicable - Core Measures Any of the following diagnoses?: none Exam - Constitutional Vitals: Temp Pulse Resp BP Pulse Ox 99.0 F 111 H 18 134/77 98 07/20/19 11:31 07/20/19 11:31 07/20/19 11:31 07/20/19 11:31 07/20/19 11:31 General appearance: Present: no acute distress, cachectic - EENT Eyes: Present: PERRL, EOM intact - Neck Neck: Present: supple, normal ROM - Respiratory Respiratory effort: normal Respiratory: bilateral: diminished, negative: rales, rhonchi, wheezing - Cardiovascular Rhythm: regular Heart Sounds: Present: S1 & S2 - Extremities Extremities: no ischemia, abnormal (sacral decubiti, multiple lower extremity decubiti per Wound care) - Abdominal General gastrointestinal: Present: soft, non-tender, non-distended, normal bowel sounds, other (PEG tube in place) - Integumentary Integumentary: Present: clear, warm - Musculoskeletal Musculoskeletal: generalized weakness - Psychiatric Psychiatric: appropriate mood/affect, cooperative - Neurologic Neurologic: other ( residual weakness) Plan Activity: advance as tolerated, fall precautions Diet: other (mechanical soft diet as tolerated/PEG feeds as needed) Wound: per wound nurse instructions Special Instructions: physical therapy Additional Instructions: Wound Care as per instructions. Aspiration precautions. Fall precautions Follow up with: PRIMARY MD ESTELA [Primary Care Provider] - 3-5 Days DENG MACIEL DO [Staff Physician] - 7 Days SAM CARRILLO MD [Staff Physician] - 7 Days LONNIE READ MD [Staff Physician] - 14 Days KERMIT IVERSON MD [Staff Physician] - 14 Days
[2019-07-20] MEDS: ALBUTEROL 2.5 MG/3 ML NEBU IH PRN (16:05)
[2019-07-20 16:40] VITALS: BP 115/67
--- NOTE | 2019-07-20 17:11 | Progress Note ---
Assessment and Plan Cultures: 07/08/2019 urine culture: No growth 07/08/2019 blood culture: No growth 07/15/2019 blood culture: No growth A/P: 59-year-old female with rheumatoid arthritis on chronic steroids, asthma, lupus, bilateral decubitus ulcers, apparently hasn't walked for the last couple of weeks and has been declining was admitted to the hospital on 07/09/2019 with complaints of failure to thrive and poor oral intake. Now with: #Fever, unclear etiology: ? pneumonia was raised based on chest x-ray however u kianna my review, I see minimal bilateral lower lobe opacities that may be more atelectasis. Patient has no leukocytosis, has no respiratory distress. UA was without any significant pyuria. Blood cultures are negative. Patient clinically stable. She has a sacral decubitus but does not appear to be infected. Continue wound care. #Urinary tract infection, acute kidney injury, bladder outlet obstruction: Status post antibiotics and indwelling Ortiz catheter now. #Sacral decubitus ulcer: does not appear to be infected. Continue wound care. #Malnutrition: s/p PEG tube and tube feeds. #RA, lupus: on plaquenil, chronic low lose steroids. Immunocompromised host. #Pancytopenia Recs: afebrile, off antibiotics, OK for discharge from ID standpoint Jena Espinosa MD, FACP [facility] C: [phone] O: [phone] F: [phone] Subjective Date of service: 07/20/19 Principal diagnosis: Malnutrition, Heme + stool Interval history: No fever. No new complaints. Lying in bed. Objective - Exam Narrative Exam: Physical Exam: Constitutional: Alert, cooperative. No acute distress. Cachexia Head, Ears, Nose: Normocephalic, atraumatic. External ears, nose normal Eyes: Conjunctivae/corneas clear. No icterus. No ptosis. Neck: Supple, no meningeal signs Oral: dentition poor, no thrush Cardiovascular: S1, S2 normal. Respiratory: Good air entry, clear to auscultation bilaterally GI: Soft, non-tender; bowel sounds normal. No peritoneal signs. G tube : indwelling ortiz cath + Musculoskeletal: No pedal edema, no cyanosis. Skin: No rash or abscess. Sacral decubitus Hem/Lymphatic: No palpable cervical or supraclavicular nodes. No lymphangitis Psych: Mood ok. Affect normal Neurological: Awake, alert, oriented - Constitutional Vitals: Vital Signs Temp Pulse Resp BP Pulse Ox 98.7 F 123 H 18 115/67 98 07/20/19 16:27 07/20/19 16:27 07/20/19 16:27 07/20/19 16:27 07/20/19 16:27 Temperature -Last 24 Hours Temperature 98.7 F Temperature 99.0 F Temperature 98.4 F Temperature 97.8 F Temperature 98.8 F - Labs CBC & Chem 7: 07/19/19 04:35 07/19/19 04:35
== END 2019-07-20 17:50 | DRG 871 ==
LOC: ED 18:59 → IMCU 07-09 00:35 → 3A 07-13 18:54
PROVIDERS: ADMIT Internal Medicine; ATTEND Internal Medicine
PROC: 30233N1 Transfusion of Nonautologous Red Blood Cells into Peripheral Vein, Percutaneous Approach (ICD-10-PCS; principal; 2019-07-09)
PROC: 0DH63UZ Insertion of Feeding Device into Stomach, Percutaneous Approach (ICD-10-PCS; 2019-07-11)
DX: A41.9 Sepsis, unspecified organism (principal); G93.41 Metabolic encephalopathy; E43 Unspecified severe protein-calorie malnutrition; N17.9 Acute kidney failure, unspecified; Z68.1 Body mass index [BMI] 19.9 or less, adult; N13.6 Pyonephrosis; D61.818 Other pancytopenia; B37.0 Candidal stomatitis; L89.152 Pressure ulcer of sacral region, stage 2; E87.6 Hypokalemia; K44.9 Diaphragmatic hernia without obstruction or gangrene; K29.70 Gastritis, unspecified, without bleeding; E83.39 Other disorders of phosphorus metabolism; E83.42 Hypomagnesemia; E87.5 Hyperkalemia; R62.7 Adult failure to thrive; M06.9 Rheumatoid arthritis, unspecified; J45.909 Unspecified asthma, uncomplicated; M32.9 Systemic lupus erythematosus, unspecified; Z90.710 Acquired absence of both cervix and uterus; Z90.49 Acquired absence of other specified parts of digestive tract; Z88.1 Allergy status to other antibiotic agents; Z88.8 Allergy status to other drugs, medicaments and biological substances; Z79.899 Other long term (current) drug therapy; Z74.01 Bed confinement status
CPT/HCPCS: 36415; 36430; 70450; 71045; 74176; 80048; 80053; 81001; 82140; 82270; 82271; 82306; 82550; 82607; 82962; 83735; 83880; 84100; 84132; 84134; 84145; 85007; 85025; 85027; 85610; 86140; 86160; 86850; 86900; 86901; 86920; 87040; 87086; 94640; G0378; J0690; J0692; J0696; J1956; J2543; J3475; J7030; J7040; J7512; P9016

== ENCOUNTER 2019-08-01 13:56 | Emergency (ER) | payer OTHER ==
[2019-08-01] MEDS ORDERED: SODIUM CHLORIDE 0.9% 1000 ML 1,000 ML IV ONE (14:29)
--- NOTE | 2019-08-01 14:37 | Emergency Department Report ---
ED General Adult HPI - General Chief complaint: Wound/Laceration Stated complaint: LABS Time Seen by Provider: 08/01/19 14:28 Source: patient, EMS, RN notes reviewed Mode of arrival: Wheelchair Limitations: No Limitations - History of Present Illness Initial comments: Pt is a 59 yo female sent to us from Rehab for eval of her bedsores. EMR reviewed. Pt has had long illness, over several months, with rapid decline in function. She has contracted BLE, is cachectic and malnourished.. Pt reports her illness came on after a UTI; and that prior to that admit at [facility] she was living independently RN has photographed all wounds- see EMR No fever/ chills/ n/v/d Arrives via EMS with no family present -: Gradual - Related Data Home Medications Medication Instructions Recorded Confirmed Last Taken Prednisone [predniSONE (Lainey) ER 5 mg PO QDAY 02/06/17 07/09/19 02/06/17 TAB] Calcium 600-D3 20Mcg(800 Unit) 1 tab PO QDAY 07/09/19 07/09/19 07/07/19 08:00 Cyanocobalamin (Vitamin B-12) 50 mcg PO QDAY 07/09/19 07/09/19 07/07/19 08:00 Ferrous Sulfate 65 mg PO QDAY 07/09/19 07/09/19 07/07/19 08:00 Hydroxychloroquine [Plaquenil] 200 mg PO QDAY 07/09/19 07/09/19 Unknown Vitamin C 1,000 mg PO QDAY 07/09/19 07/09/19 07/07/19 08:00 Previous Rx's Medication Instructions Recorded Last Taken Type Lipase/Protease/Amylase [Pancreaze 1 each FEEDTUBE PRN PRN capsule 07/20/19 Unknown Rx 10,500 Unit] predniSONE [Deltasone] 5 mg PO QDAY tablet 07/20/19 Unknown Rx Allergies Allergy/AdvReac Type Severity Reaction Status Date / Time azithromycin Allergy Swelling Verified 02/07/17 02:21 aspirin AdvReac Nausea Verified 02/06/17 13:00 ED Review of Systems ROS: Stated complaint: LABS Other details as noted in HPI Comment: All other systems reviewed and negative ED Past Medical Hx - Past Medical History Previous Medical History?: Yes Hx Renal Disease: Yes (hydronephrosis, urinary retention, stones ) Hx Arthritis: Yes (RA) Hx Asthma: Yes Hx COPD: No Additional medical history: lupus, Anemia, Sacral Decubitus - Surgical History Past Surgical History?: Yes Hx Appendectomy: Yes Additional Surgical History: left leg shorter,surgery when young,partial hysterectomy - Family History Family history: no significant - Social History Smoking Status: Never Smoker Substance Use Type: None - Medications Home Medications: Home Medications Medication Instructions Recorded Confirmed Last Taken Type Prednisone [predniSONE (Lainey) ER 5 mg PO QDAY 02/06/17 07/09/19 02/06/17 History TAB] Calcium 600-D3 20Mcg(800 Unit) 1 tab PO QDAY 07/09/19 07/09/19 07/07/19 08:00 History Cyanocobalamin (Vitamin B-12) 50 mcg PO QDAY 07/09/19 07/09/19 07/07/19 08:00 History Ferrous Sulfate 65 mg PO QDAY 07/09/19 07/09/19 07/07/19 08:00 History Hydroxychloroquine [Plaquenil] 200 mg PO QDAY 07/09/19 07/09/19 Unknown History Vitamin C 1,000 mg PO QDAY 07/09/19 07/09/19 07/07/19 08:00 History Lipase/Protease/Amylase [Pancreaze 1 each FEEDTUBE PRN PRN capsule 07/20/19 Unknown Rx 10,500 Unit] predniSONE [Deltasone] 5 mg PO QDAY tablet 07/20/19 Unknown Rx ED Physical Exam - General Limitations: No Limitations General appearance: alert, in no apparent distress - Head Head exam: Present: atraumatic, normocephalic - Eye Eye exam: Present: normal appearance - ENT ENT exam: Present: mucous membranes moist - Neck Neck exam: Present: normal inspection - Respiratory Respiratory exam: Present: normal lung sounds bilaterally. Absent: respiratory distress - Cardiovascular Cardiovascular Exam: Present: regular rate, normal rhythm. Absent: systolic mur mur, diastolic murmur, rubs, gallop - GI/Abdominal GI/Abdominal exam: Present: soft, normal bowel sounds - Extremities Exam Extremities exam: Present: normal inspection - Back Exam Back exam: Present: normal inspection - Neurological Exam Neurological exam: Present: alert, oriented X3 - Psychiatric Psychiatric exam: Present: normal affect, normal mood - Skin Skin exam: Present: warm, dry, other (see pictures of sacral and hip wounds). Absent: rash ED Course Vital Signs 08/01/19 08/01/19 14:44 17:22 Temperature 97.8 F Pulse Rate 96 H 87 Respiratory 20 16 Rate Blood Pressure 114/63 145/88 [Left] O2 Sat by Pulse 100 100 Oximetry ED Medical Decision Making - Lab Data Result diagrams: 08/01/19 15:16 08/01/19 15:16 - Radiology Data Radiology results: report reviewed, image reviewed - Medical Decision Making Vital Signs 08/01/19 14:44 Temperature 97.8 F Pulse Rate 96 H Respiratory 20 Rate Blood Pressure 114/63 [Left] O2 Sat by Pulse 100 Oximetry Lab Results 08/01/19 Range/Units 15:16 WBC 6.1 (4.5-11.0) K/mm3 RBC 2.65 L (3.65-5.03) M/mm3 Hgb 7.9 L (10.1-14.3) gm/dl Hct 23.5 L (30.3-42.9) % MCV 89 (79-97) fl MCH 30 (28-32) pg MCHC 34 (30-34) % RDW 16.4 H (13.2-15.2) % Plt Count 235 (140-440) K/mm3 Lymph % (Auto) 23.6 (13.4-35.0) % Ferry % (Auto) 9.6 H (0.0-7.3) % Eos % (Auto) 0.2 (0.0-4.3) % Baso % (Auto) 0.3 (0.0-1.8) % Lymph # 1.4 (1.2-5.4) K/mm3 Ferry # 0.6 (0.0-0.8) K/mm3 Eos # 0.0 (0.0-0.4) K/mm3 Baso # 0.0 (0.0-0.1) K/mm3 Seg Neutrophils % 66.3 (40.0-70.0) % Seg Neutrophils # 4.0 (1.8-7.7) K/mm3 WBC normal; no fever; no concern for systemic sepsis stage IV wound to sacrum and hip- see pictures and WOCN note WOCN called to bedside; pt known to her pt dc back to rehab with outpatient follow up arranged by our [facility] Rehab facility notified that pt does not need acute care for her wound care but does need follow up with specialist. Dc to rehab with follow up as outlined by [facility]. - Differential Diagnosis ro sepsis Critical care attestation.: If time is entered above; I have spent that time in minutes in the direct care of this critically ill patient, excluding procedure time. ED Disposition Clinical Impression: Severe protein-calorie malnutrition, Unstageable pressure ulcer of sacral region, Right ischial pressure sore, unstageable, Failure to thrive, Chronic anemia, Malnutrition Disposition: DC-01 TO HOME OR SELFCARE Is pt being admited?: No Does the pt Need Aspirin: No Condition: Stable Instructions: How to Prevent Pressure Ulcers (ED), Pressure Ulcer (ED) Additional Instructions: PT NEEDS TO FOLLOW UP OUTPATIENT WITH THE WOUND OSTOMY STAFF FOR THE CARE AND MANAGEMENT OF HER WOUNDS. TURN HER EVERY HOUR SIDE TO SIDE. AVOID PRESSURE ON ANY ONE AREA FOR ANY TIME. MAXIMIZE NUTRITION BHANU PROTEIN INTAKE KEEP WELL HYDRATED MOTRIN OR TYLENOL FOR PAIN OUR WOUND TEAM IS AWARE OF PT COMING TO ER AND IS EXPECTING YOUR FACILITATING PT FOLLOW UP continue home meds continue wound care Referrals: [facility]Outside] - 3-5 Days Time of Disposition: 16:02
[2019-08-01 16:11] LABS: Basophils % (Auto) 0.3 % (0.0-1.8); Eosinophils % (Auto) 0.2 % (0.0-4.3); Hematocrit 23.5 % (30.3-42.9); Hemoglobin 7.9 gm/dl (10.1-14.3); Lymphocytes # (Auto) 1.4 K/mm3 (1.2-5.4); Lymphocytes % (Auto) 23.6 % (13.4-35.0); Mean Corpuscular HGB Conc 34 % (30-34); Mean Corpuscular Volume 89 fl (79-97); Monocytes # (Auto) 0.6 K/mm3 (0.0-0.8); Monocytes % (Auto) 9.6 % (0.0-7.3); Platelet Count 235 K/mm3 (140-440); Red Blood Count 2.65 M/mm3 (3.65-5.03); Red Cell Distribution Width 16.4 % (13.2-15.2)
[2019-08-01 16:23] LABS: Alanine Aminotransferase 31 units/L (7-56); Albumin 1.8 g/dL (3.9-5); BUN/Creatinine Ratio 80; Blood Urea Nitrogen 24 mg/dL (7-17); Hemolysis Index 7
[2019-08-01 17:23] VITALS: BP 145/88
== END 2019-08-01 17:52 | disposition home or self-care (01) ==
LOC: ED 13:56
DX: L89.150 Pressure ulcer of sacral region, unstageable (principal); L98.418 Non-pressure chronic ulcer of buttock with other specified severity; E43 Unspecified severe protein-calorie malnutrition; Z68.1 Body mass index [BMI] 19.9 or less, adult; D53.9 Nutritional anemia, unspecified; Z88.1 Allergy status to other antibiotic agents; Z88.6 Allergy status to analgesic agent; J45.909 Unspecified asthma, uncomplicated; M19.90 Unspecified osteoarthritis, unspecified site; Z90.710 Acquired absence of both cervix and uterus; Z79.899 Other long term (current) drug therapy
CPT/HCPCS: 36415; 80053; 82140; 85025; 99284; J7030